=== PATIENT | male | born 1945 | race Caucasian/White ===

== ENCOUNTER 2020-09-17 12:14 | Inpatient (IN) ==
[2020-09-17 13:43] LABS: Basophils # (auto) 0.05 K/uL (0-0.2); Basophils % (auto) 0.5 %; Eosinophils # (auto) 0.13 K/uL (0-0.5); Eosinophils % (auto) 1.2 %; Hematocrit (blood only) 38.3 % (42-52); Hemoglobin 13.1 g/dL (14.0-18.0); Immature Granulocytes # (auto) 0.05 K/uL (0.00-0.02); Immature Granulocytes % (auto) 0.5 %; Lymphocytes # (auto) 2.46 K/uL (1.2-3.4); Lymphocytes % (auto) 22.7 %; Mean Corpuscular Hemoglobin 30.4 pg (25-34); Mean Corpuscular Hgb Conc 34.2 g/dL (32-36); Mean Corpuscular Volume 88.9 fL (80-100); Monocytes # (auto) 0.63 K/uL (0.11-0.59); Monocytes % (auto) 5.8 %; Neutrophils # (auto) 7.53 K/uL (1.4-6.5); Neutrophils % (auto) 69.3 %; Platelet Count 141 K/uL (130-400); RDW Coefficient of Variation 16.1 % (11.5-14.5); RDW Standard Deviation 52.3 fL (36.4-46.3); Red Blood Count 4.31 M/uL (4.7-6.1); White Blood Count 10.85 K/uL (4.8-10.8)
--- NOTE | 2020-09-17 13:56 | XRay Report ---
XR chest 1V portable HISTORY: Atypical Chest Pain COMPARISON: None. FINDINGS: No pneumothorax. The cardiac silhouette is moderately enlarged. There is mild pulmonary vas cular congestion without overt edema. Bibasilar linear densities favor subsegmental atelectasis. No d efinite pleural effusions. No focal lung consolidations to suggest pneumonia. Degenerative changes in the bilateral shoulders. IMPRESSION: Moderate cardiomegaly. There is also mild central pulmonary vascular congestion without overt edema. ACT 112: Negative or not required by law. Electronically signed by: Calvin Matthews M.D. 09/17/2020 1:55 PM
[2020-09-17 14:06] LABS: Albumin Level 3.6 gm/dl (3.4-5.0); BUN Creatinine Ratio 27.6 (10-20); Bilirubin,Total 1.6 mg/dl (0.2-1); Calcium 9.4 mg/dl (8.5-10.1); Creatinine Clr Calc Pharmacy 66.2 ml/min; Est GFR (African American) 52.1 ml/min; Est GFR (Non-African American) 44.9 ml/min; Globulin 3.7 gm/dl (2.5-4.0); Total Protein 7.3 gm/dl (6.4-8.2); Troponin I 0.06 ng/ml (0-0.045)
[2020-09-17] MEDS ORDERED: ASPIRIN CHEW 324 MG PO STA (14:19)
[2020-09-17 14:32] LABS: INR 1.1 (0.9-1.1); Partial Thromboplastin Ratio 1.2; Partial Thromboplastin Time 30.5 Seconds (21.0-31.0); Prothrombin Time 11.4 Seconds (9.0-12.0)
[2020-09-17 14:44] LABS: Potassium 3.9 mmol/L (3.5-5.1)
--- NOTE | 2020-09-17 15:33 | Electrocardiogram Report ---
Test Reason : Blood Pressure : / mmHG Vent. Rate : 068 BPM Atrial Rate : 267 BPM P-R Int : 000 ms QRS Dur : 172 ms QT Int : 490 ms P-R-T Axes : 000 -68 084 degrees QTc Int : 521 ms Atrial fibrillation Left axis deviation Left bundle branch block Abnormal ECG No previous ECGs available Confirmed by Dennis Richardson [id number] on 09/17/2020 3:32:31 PM Referred By: [facility] Confirmed By:Lupillo Richardson
[2020-09-17] MEDS ORDERED: cefTRIAXone SODIUM 2,000 MG/70 ML BAG IV STA (16:21)
[2020-09-17] MEDS ORDERED: CONSULT PHARMACY STA (16:27)
[2020-09-17] MEDS ORDERED: Heparin IV Adult Wt-Based Standard *NO* Bolus Protocol IV SCH (16:30)
[2020-09-17] MEDS ORDERED: FUROSEMIDE 40 MG/4 ML VIAL IV STA (16:41)
[2020-09-17] MEDS ORDERED: cefTRIAXone SODIUM 2000MG/70ML D5W IV ONE (16:43)
--- NOTE | 2020-09-17 16:51 | History & Physical Report ---
Date of Service September 17, 2020 Assessment & Plan (1) Atrial fibrillation, new onset: (2) Elevated troponin: (3) Left-sided chest pain: (4) CAD (coronary artery disease): (5) Acute on chronic heart failure with preserved ejection fraction (HFpEF): (6) LBBB (left bundle branch block): (7) JS (acute kidney injury): (8) ELHAM on CPAP: (9) Bilateral lower leg cellulitis: Plan: This is a 75-year-old male who has significant past medical history of CAD, chronic LBBB, history of HFrEF but EF now recovered, HTN, HLD, ELHAM on CPAP, morbid obesity, pulmonary hypertension, bipolar, GERD, RLS, POAG who presents to ED secondary to chest pain times approximately 1 hour. Patient recently hospitalized at [facility] 09/07-09/12 secondary to decompensation of CHF. Treated with Lasix 60 mg IV twice daily and transition to oral torsemide, started on metolazone and Aldactone. Per cardiology notes from [facility] prior history of HFrEF, but EF now recovered. Echo on 07/2020 revealed EF 55 to 60%, severe LVH, LA severely dilated, RV SF globally reduced. Per patient he has had 4 hospitalizations in the past month secondary to heart failure, JS, pneumonia and a readmission for heart failure and bilateral lower extremity cellulitis. He has since been discharged to [facility] secondary to deconditioning and ambulatory dysfunction. Patient had episode of chest pain with associated lightheadedness, dizziness, shortness breath and diaphoresis and EKG found patient to be in new onset rate controlled atrial fibrillation. He was referred to ED for further evaluation New onset atrial fibrillation Elevated troponin Left-sided chest pain Known CAD Chronic LBBB Admit to PCU, chest pain now resolved Initiate IV heparin, [id number] (Age, CHF, HTN, PVD) - discussed risk vs benefit, no hx of major bleeding in past Continue oral metoprolol, currently rate controlled Consult cardiology check tsh cycle troponins, was elevated to 0.08 at [facility] on admission continue home meds of metoprolol, lisinopril ASA, atorvastatin, Aldactone Acute on Chronic HFpEF likely 2/2 to afib and continued diuresis from recent exac elevated pro bnp, unknown baseline per records from recent admission wt on admission 172kg and a d/c 161kg hold torsemide, place on lasix 40mg IV BID daily weight, strict I and O Continue aldactone, hold metolazone 2/2 to elevated in renal fxn from d/c Hyponatremia, chronic at d/c on 09/12 was 130 likely dilutional 2/2 to volume overload vs diuretic effect monitor na levels closely metolazone on hold JS renal fxn at d/c was cr 1.0, normal GFR bun/cr 41 and 1.49 today continue with IV lasix but adjust based on renal fxn hold metolazone for now Bilateral lower extremity cellulitis Was seen and evaluated by infectious disease during recent hospitalization treated with IV Rocephin transitioned to oral keflex at d/c to be completed at end of day on 09/19 - will continue oral keflex given volume status hesitant to give IV antibiotics; however if redness does not improve or worsens would place on IV dapto will have nursing staff alfred line of erythema obtain procalcitonin B/L lower ext edema and discoloration concern for PVD/PAD, prolonged cap refill but good pedal and pt pulse obtain b/l venous doppler and Arterial doppler Intertrigo place on nystatin/triamcinolone consult wound nurse ELHAM on CPAP CPAP at HS COPD no acute exac, continue home inhalers umeclidinium and combivent DVT Ppx: IV Heparin Dispo: PCU PCP: [facility] in [place]/Currently at [facility] FULL CODE Pt was seen and examined in collaboration with Dr. Krause, please see addendum History of Present Illness Chief Complaint: Chest pain x1 hour. Primary Care Provider: [facility] This is a 75-year-old male who has significant past medical history of CAD, chronic LBBB, history of HFrEF but EF now recovered, HTN, HLD, ELHAM on CPAP, morbid obesity, pulmonary hypertension, bipolar, GERD, RLS, POAG who presents to ED secondary to chest pain times approximately 1 hour. Of significance patient is currently in acute rehab at [facility]. He has been there since 09/12. Records are limited and he has had multiple recent hospitalizations at [facility]. Patient admits to 4 recent hospitalization starting approximately 1 month ago. Initially he was admitted for acute CHF, which he admits a new diagnosis. He was then discharged and readmitted with syncope and JS felt likely secondary to aggressive diuresis. Unfortunately he was read mitted with pneumonia and cellulitis and treated appropriately. He was last admitted 09/07-09/12 at [facility] secondary to acute on chronic CHF. Most recent echocardiogram revealed EF 55 to 60%, severely dilated left atrium, severe LVH, and RV SF globally reduced. He was treated with IV Lasix 60 mg twice daily and discharged on torsemide 20 mg twice daily along with metolazone and Aldactone. Of note he does have a recent history of reduced ejection fraction but his EF has now recovered. He was also discovered to have a bilateral lower extremity cellulitis and treated with IV Rocephin. He was discharged with oral Keflex and is to can be completed for a 7-day course. He was then discharged to [facility] for rehab secondary to general deconditioning and ambulatory dysfunction. He states prior to hospitalizations he was able to walk on own and now has difficulty getting out of bed. He has been at [facility] since 09/12 and was working with therapy today when he developed a blank stare instead, "I am having a heart attack." He described it as, "doing heroin," although he states he is never done this before. He developed left-sided chest pain which was nonradiating and lasted for 3 to 4 minutes. It was associated with diaphoresis, dizziness, lightheadedness and shortness of breath. This lasted for approximately 1 hour. Symptoms gradually resolved. [facility] nursing staff obtained an EKG which revealed a new onset rate controlled atrial fibrillation. He was then referred to ED for further evaluation. Currently he feels improved but debilitated. He currently denies any fever, chills, sweats, lightheadedness, dizziness, chest pain, shortness breath, cough, URI symptoms, nausea, vomiting, abdominal pain. His appetite has been okay and is requesting a meal now. He feels his lower extremities are improving as far as redness and swelling goes. He admits to being 360 pounds when he was initially admitted and now into the 330s. In ED patient made hemodynamically stable, but EKG confirming atrial fibrillation. Lab work notable for BUN 41, creatinine 1.49, troponin 0.060, proBNP 2585, H&H 13.1 and 38.3, to WBC 10.85 Chest x-ray revealed moderate cardiomegaly and also mild central pulmonary vascular congestion without overt edema. He received 325 mg of aspirin. Allergies Allergy/AdvReac Type Severity Reaction Status Date / Time benzalkonium chloride Allergy Unknown Unverified 09/17/20 15:55 brimonidine Allergy Unknown Unverified 09/17/20 15:55 inositol Allergy Unknown Unverified 09/17/20 15:55 niacin Allergy Unknown Unverified 09/17/20 15:55 pollen extracts Allergy Unknown Unverified 09/17/20 15:55 timolol Allergy Unknown Unverified 09/17/20 15:55 travoprost Allergy Unknown Unverified 09/17/20 15:55 Home Medications Medication Instructions Recorded Confirmed Type allopurinol 100 mg tablet 200 mg PO DAILY 09/17/20 09/17/20 History amitriptyline 10 mg tablet 10 mg PO HS 09/17/20 09/17/20 History ascorbic acid (vitamin C) 250 mg 500 mg PO DAILY 09/17/20 09/17/20 History tablet atorvastatin 10 mg tablet (Lipitor) 10 mg PO HS 09/17/20 09/17/20 History calcitriol 0.25 mcg capsule 0.25 mcg PO DAILY 09/17/20 09/17/20 History (Rocaltrol) calcium carbonate 500 mg calcium 500 mg PO DAILY 09/17/20 09/17/20 History (1,250 mg) chewable tablet cholecalciferol (vitamin D3) 25 25 mcg PO DAILY 09/17/20 09/17/20 History mcg (1,000 unit) tablet (Vitamin D3) cyanocobalamin (vitamin B-12) 1,000 mcg PO DAILY 09/17/20 09/17/20 History 1,000 mcg tablet docusate sodium 100 mg capsule 100 mg PO BID 09/17/20 09/17/20 History dorzolamide 2 % eye drops 1 drp OPB TID 09/17/20 09/17/20 History finasteride 5 mg tablet (Proscar) 5 mg PO DAILY 09/17/20 09/17/20 History gabapentin 300 mg capsule 1,500 mg PO HS 09/17/20 09/17/20 History (Neurontin) ipratropium 20 mcg-albuterol 100 1 puff INHALATION Q4H PRN 09/17/20 09/17/20 History mcg/actuation mist for inhalation ipratropium 20 mcg-albuterol 100 1 puff INHALATION QID 09/17/20 09/17/20 History mcg/actuation mist for inhalation (Combivent Respimat) lactulose 10 gram/15 mL oral 20 g PO DAILY 09/17/20 09/17/20 History solution (Enulose) lamotrigine 150 mg tablet 150 mg PO DAILY 09/17/20 09/17/20 History (Lamictal) loratadine 10 mg tablet 10 mg PO DAILY 09/17/20 09/17/20 History metoprolol succinate 25 mg 25 mg PO HS 09/17/20 09/17/20 History tablet,extended release 24 hr (Toprol XL) multivitamin with iron-mineral 1 tab PO DAILY 09/17/20 09/17/20 History omega-3 fatty acids 1,000 mg PO DAILY 09/17/20 09/17/20 History pantoprazole 40 mg tablet,delayed 40 mg PO BID 09/17/20 09/17/20 History release (Protonix) ropinirole 0.5 mg tablet 0.5 mg PO TID 09/17/20 09/17/20 History tamsulosin 0.4 mg capsule (Flomax) 0.4 mg PO DAILY 09/17/20 09/17/20 History temazepam 15 mg capsule 15 mg PO HS PRN 09/17/20 09/17/20 History umeclidinium 62.5 mcg/actuation 1 inh INHALATION DAILY 09/17/20 09/17/20 History blister powder for inhalation zinc sulfate 220 mg capsule 220 mg PO DAILY 09/17/20 09/17/20 History Past Med/Surg History Medical History 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 BPH (benign prostatic hyperplasia) CAD (coronary artery disease) Chronic heart failure with preserved ejection fraction (HFpEF) COPD (chronic obstructive pulmonary disease) GERD (gastroesophageal reflux disease) Hyperparathyroidism LBBB (left bundle branch block) chronic ELHAM on CPAP POAG (primary open-angle glaucoma) RLS (restless legs syndrome) Surgical History History of cataract extraction History of cholecystectomy History of hip replacement History of knee joint replacement History of laminectomy History of rotator cuff surgery Family History Other Heart disease Social History Smoking Status: Never smoker Second Hand Exposure: Yes; Hx Alcohol Use: No Hx Substance Use: No Preferred Language: Citizen Of [place] Communication Ability: Effective Supervising Bailiff Required: No Beliefs That Will Affect Care: None marital status: Current Living Situation: Spouse Current Living Situation Comment: Lives with Feels Safe at Home: Yes Review of Systems Review of Systems: All systems reviewed & are unremarkable except as noted in HPI & below Physical Exam Physical Exam: Constitutional: WD/WN, morbidly obese, vitals as above, NAD, sitting up in bed, pleasant, conversing easily Head: Normocephalic, Atraumatic Eyes: +Anisocoria R>L, conjunctivae normal, anicteric sclerae ENMT: external ear and nose normal, oropharynx normal Neck: trachea midline, no thyromegaly normal visual inspection Respiratory: normal respiratory effort, lungs clear to auscultation, no wheeze, rales, rhonchi. Normal insp/exp effort, no accessory muscle use Cardiovascular: IRR rhythm, reg rate, no murmur, b/l lower ext pitting edema, b/l lower ext cellulitis, cool peripheral lower ext, cap refill > 3 sec, + 2 pedal pulse Vessels: no JVD or carotid bruit Chest: normal inspection of chest Abdomen: distended protuberant abd, normal bowel sounds, soft, nontender, no hepatosplenomegaly Musculoskeletal: no cyanosis or clubbing, AROM x 4 Skin: no rashes, warm and dry normal turgor Neurologic: PERRL, EOMI, accommodation nl, no face palsy, no dysarthria CN's II-XI intact bilaterally and moves all extremities Psychiatric: A+Ox3, euthymic affect Lymphatic: no cervical or axillary lymphadenopathy : deferred Results & Data Results & Data ([facility]) Vital Signs (Past 12 Hours) Vital Signs Temp Pulse Pulse Resp BP BP Pulse Ox 09/17/20 16:00 71 19 210/101 H 97 09/17/20 15:30 74 12 184/112 H 93 09/17/20 15:00 63 18 165/108 H 91 09/17/20 14:30 75 20 151/80 H 96 09/17/20 14:25 74 20 168/77 H 97 09/17/20 14:18 73 16 168/77 H 96 09/17/20 12:23 61 15 127/67 95 09/17/20 12:14 36.4 C L 64 16 126/67 95 Diagnostic Findings Chest X-Ray 09/17/20 13:09 XR chest 1V portable HISTORY: Atypical Chest Pain COMPARISON: None. FINDINGS: No pneumothorax. The cardiac silhouette is moderately enlarged. There is mild pulmonary vascular congestion without overt edema. Bibasilar linear densities favor subsegmental atelectasis. No definite pleural effusions. No focal lung consolidations to suggest pneumonia. Degenerative changes in the bilateral shoulders. IMPRESSION: Moderate cardiomegaly. There is also mild central pulmonary vascular congestion without overt edema. ACT 112: Negative or not required by law. Electronically signed by: Calvin Matthews M.D. 09/17/2020 1:55 PM Medications Administered Medication List Heparin Sodium/Dextrose (Heparin Sodium/Dextrose) 25,000 units in 500 mls @ 40 mls/hr IV .[id number] [facility]; Protocol Stop: 10/17/20 16:29 Last Admin: 09/17/20 16:56 Dose: 2,000 units/hr, 40 mls/hr Documented by: [id number] Cosigned by: [id number] Discontinued Medications Aspirin (Aspirin Chew 324 Mg) 324 mg PO NOW STA Stop: 09/17/20 14:20 Last Admin: 09/17/20 14:33 Dose: 324 mg Documented by: [id number] Ceftriaxone Sodium (Ceftriaxone Sodium 2000mg/70ml D5w) Confirm Administered Dose 2,000 mg IV .STK-MED ONE Stop: 09/17/20 16:44 Last Admin: 09/17/20 16:51 Dose: Not Given Documented by: [id number] Furosemide (Furosemide 40 Mg/4 Ml Vial) 40 mg IV NOW STA Stop: 09/17/20 16:42 Last Admin: 09/17/20 16:54 Dose: 40 mg Documented by: [id number] Ceftriaxone Sodium (Rocephin) 2,000 mg in 70 mls @ 140 mls/hr IV NOW STA Stop: 09/17/20 16:50 Last Admin: 09/17/20 16:49 Dose: Not Given Documented by: [id number] ECG Rate (beats per minute): 68 Rhythm: atrial fibrillation Findings: + LBBB COVID-19 Results Results COVID-19 Adm Lab Results: RBC 3.43 M/uL (4.7-6.1) L 09/22/20 WBC 36.57 K/uL (4.8-10.8) H* 09/22/20 Hgb 9.9 g/dL (14.0-18.0) L 09/22/20 Hct 28.0 % (42-52) L 09/22/20 Plt Count 239 K/uL (130-400) 09/22/20 Neutrophils (%) (Auto) 70.8 % 09/21/20 Lymphocytes (%) (Auto) 23.3 % 09/21/20 Monocytes # (Auto) 1.16 K/uL (0.11-0.59) H 09/21/20 Eosinophils # (Auto) 0.01 K/uL (0-0.5) 09/21/20 Immature Granulocyte % (Auto) 1.3 % 09/21/20 Neutrophils # (Auto) 18.46 K/uL (1.4-6.5) H 09/21/20 Lymphocytes # (Auto) 6.07 K/uL (1.2-3.4) H 09/21/20 Monocytes # (Auto) 1.16 K/uL (0.11-0.59) H 09/21/20 Eosinophils # (Auto) 0.01 K/uL (0-0.5) 09/21/20 Basophils # (Auto) 0.03 K/uL (0-0.2) 09/21/20 Immature Granulocyte # (Auto) 0.33 K/uL (0.00-0.02) H 09/21/20 ANC 24.90 K/uL (1.4-6.5) H 09/22/20 ALC 10.72 K/uL (1.2-3.4) H 09/22/20 Neutrophils % (Manual) 68.1 % 09/22/20 Lymphocytes % (Manual) 29.3 % 09/22/20 Monocytes % (Manual) 1.7 % 09/22/20 Basophils % (Manual) 0.9 % 09/22/20 Neutrophils # (Manual) 24.90 K/uL (1.4-6.5) H 09/22/20 Lymphocytes # (Manual) 10.72 K/uL (1.2-3.4) H 09/22/20 Monocytes # (Manual) 0.62 K/uL (0.11-0.59) H 09/22/20 Basophils # (Manual) 0.33 K/uL (0-0.2) H 09/22/20 Red Blood Cell Morphology Unremarkable 09/22/20 Na 125 mmol/L (136-145) L 09/22/20 K 4.3 mmol/L (3.5-5.1) 09/22/20 Cl 90 mmol/L (98-107) L 09/22/20 CO2 23 mmol/L (21-32) 09/22/20 Anion Gap 12.0 (3-11) H 09/22/20 BUN 73 mg/dl (7-18) H 09/22/20 Creatinine 2.99 mg/dl (0.6-1.4) H 09/22/20 BUN/Creatinine Ratio 24.5 (10-20) H 09/22/20 Glucose Level 191 mg/dl (70-99) H 09/22/20 Ca 8.9 mg/dl (8.5-10.1) 09/22/20 Total Bilirubin 1.2 mg/dl (0.2-1) H 09/21/20 Direct Bilirubin 0.7 mg/dl (0-0.2) H 09/17/20 AST/SGOT 128 U/L (15-37) H 09/21/20 ALT/SGPT 69 U/L (12-78) 09/21/20 Alkaline Phosphatase 84 U/L (45-117) 09/21/20 Total Protein 6.8 gm/dl (6.4-8.2) 09/21/20 Albumin 3.5 gm/dl (3.4-5.0) 09/21/20 Globulin 3.3 gm/dl (2.5-4.0) 09/21/20 Albumin/Globulin Ratio 1.1 (0.9-2) 09/21/20 Troponin I 0.063 ng/ml (0-0.045) H* 09/18/20 EH-Tja-A-Type Natriuretic Pep 2585 pg/ml (0-1800) H 09/17/20 Procalcitonin 0.76 ng/ml (0-0.5) H 09/21/20 Fibrinogen 565 mg/dl (184-400) H 09/21/20 PTT 26.6 Seconds (21.0-31.0) 09/22/20 INR 1.1 (0.9-1.1) 09/22/20 COVID-19 PCR NEGATIVE (Negative) 09/17/20 ABG pH 7.49 (7.35-7.45) H 09/21/20 ABG pCO2 28 mmHg (35-46) L 09/21/20 ABG pO2 86 mmHg (80-95) 09/21/20 ABG HCO3 21 mmol/L (19-24) 09/21/20 ABG O2 Saturation 97.3 % (90-95) H 09/21/20 ABG Base Excess -1.3 mEq/L (-9-1.8) 09/21/20 Chest X-Ray 09/21/20 Code Status & VTE Plan Code Status Full Code VTE Prophylaxis Plan VTE Prophylaxis will be ordered: No Supervising Physician Co-Signing Physician Notes Patient seen and examined by me, care coordinated with Paris London PA-C, please refer to her note above for further detail. Pt is a 75 y/o male w/ hx of CAD, chronic LBBB, history of HFrEF but EF now recovered, HTN, HLD, ELHAM on CPAP, morbid obesity, pulmonary hypertension, bipolar, GERD, RLS, POAG who presents due to chest pain ~ 1 hour. Found to have new onset of Afib and acute CHF exacerbation likely secondary to Afib. Pt has had multiple recent hospitalizations at [facility]. Initially he was admitted for acute CHF, which is supposedly a new diagnosis. He was readmitted with pneumonia and cellulitis. He has been at [facility] since 09/12, where he developed left-sided chest pain. It was associated with diaphoresis, dizziness, lightheadedness and shortness of breath. [facility] nursing staff obtained an EKG which revealed a new onset rate controlled atrial fibrillation. He was then referred to ED for further evaluation. In ED, EKG confirmed atrial fibrillation. troponin 0.060, proBNP 2585. Chest x- ray revealed moderate cardiomegaly and also mild central pulmonary vascular congestion without overt edema. He received 325 mg of aspirin. Currently he feels improved. Denies any fever, chills, sweats, lightheadedness, dizziness, chest pain, shortness breath, cough, URI symptoms, nausea, vomiting, abdominal pain. Patient is sitting up in bed, in no acute distress. He is alert oriented answering questions appropriately. Heart sounds irregular. Lung sounds somewhat diminished, and without significant wheezing or rhonchi or crackles. Abdomen soft, obese, positive bowel sounds, nontender to palpation. Lower extremity edema with some erythema noted. Patient moves extremities spontaneously without difficulty. Start IV heparin, continue metoprolol, will obtain echocardiogram, TSH and will further discuss with cardiology. Will start IV Lasix as well, and will hold jessica e torsemide for now. Continue to closely monitor renal function. Obtain bilateral venous Doppler and arterial Doppler. Pt started on PO antibiotics for cellulitis, continue for now, closely monitor, marked the area, obtain procalcitonin and if not improving, will consider IV antibiotics. Eb Krause MD
[2020-09-17] MEDS: HEPARIN SODIUM/DEXTROSE 25,000 UNITS/500 ML BAG IV SCH (16:56)
--- NOTE | 2020-09-17 16:59 | Emergency Department Note ---
Impression & Plan Left-sided chest pain, Elevated troponin, Atrial fibrillation, new onset ED Provider Note INFORMANT: Patient ED PROVIDER(S): Sanchez Hooks MD CHIEF COMPLAINT: Chest pain PLAN: Disposition: Admitted Condition: Good Outpatient prescription management: none Referral: None MEDICAL DECISION MAKING: Patient presented to the emergency department because of chest pain. It had resolved. He was evaluated. ECG did show atrial fibrillation. The patient does not have a known history of this by his account. No prior records were available here. The patient was given aspirin. His chest x-ray showed cardiomegaly but no significant acute abnormalities. CBC showed a slight leukocytosis of 10.85. His chemistry panel was unremarkable. His creatinine was borderline at 1.49. He did have an elevated troponin. In light of his chest symptoms and the troponin further management in the hospital will be necessary. [facility] Patient was evaluated by the team in the emergency department admitted for further management. Triage Nursing notes reviewed and agree them. Vital Signs: reviewed and remarkable for no significant abnormalities Differential diagnosis: Cardiac ischemia, dysrhythmia, aortic dissection, pulmonary embolism, pneumothorax, pneumonia, pericarditis, myocarditis, esophageal rupture, GERD, cholecystitis, pancreatitis, musculoskeletal, as well as other pathologies. Diagnostics interpreted by me: ECG: Twelve-lead ECG reveals atrial fibrillation at 60 bpm. Left axis deviation and left bundle branch block. No prior EKGs for comparison. Cardiac Monitoring: Cardiac monitoring ordered by me: The patient was placed on continuous cardiac monitoring and observed. It revealed a atrial fibrillation at 77 bpm. Imaging studies: Chest x-ray reveals cardiomegaly. No acute infiltrate, pneumothorax, free air, or other pathology. I refer you to the EMR for further details. HPI: The patient is a 75 year old male who presents to the Emergency Room with complaints of left sided chest pain. This started this morning and is noting to have lasted about an hour. The patient had an ECG performed at the rehab facility and was found to be in new onset A. fib. The patient also notes the following associated symptoms, mild shortness of breath but that has been going on for weeks. He was in the [facility] for CHF and was diuresed. The patient has been given no medication prehospital for relieving factors. Current pain is rated as 0/10. Patient denies any known history of stents or blockages pt denies LOC, headache, fevers, chills, diaphoresis, visual changes, neck pain, current breathing difficulties, nausea, vomiting, abdominal pain, back pain, melena, hematochezia, urinary symptoms, numbness, weakness, lymphadenopathy, rash, or other complaints. ROS: See above HPI for pertinent positives & negatives. A total of 10 systems reviewed and were otherwise negative. PAST MEDICAL HISTORY:See Below , CHF PAST SURGICAL HISTORY:See Below, FAMILY HISTORY:See Below SOCIAL HISTORY:See Below, retired HOME MEDICATIONS:See Below ALLERGIES:See Below VITALS:See Below PHYSICAL EXAMINATION: GENERAL: Awake, alert, [id number], in no distress HENT: Normocephalic, atraumatic. Oropharynx unremarkable. EYES: Normal conjunctiva. Sclera non-icteric. NECK: Inspection normal. Non-tender. Supple. No nuchal rigidity. FROM. No masses. RESPIRATORY: Clear to auscultation. No wheezes. No rales. Normal respiratory effort. CARDIAC: Normal rate. Normal rhythm. No murmurs. No rubs. Extremities warm and well perfused. Pulses equal. No JVD. GI: Soft, non-distended. No tenderness to palpation. No rebound or guarding. No masses. RECTAL: Deferred. MUSCULOSKELETAL: Atraumatic. Chest examination reveals no tenderness. The back is symmetrical on inspection without obvious abnormality. There is no CVA tenderness to palpation. No joint edema. LOWER EXTREMITIES: Calves are equal size bilaterally and non-tender. 2+ on the left and 1+ on the right pedal edema. Chronic venous discoloration. NEURO: Normal sensorium. No sensory or motor deficits noted. SKIN: No rash or jaundice noted. Sanchez Hooks MD Past Med/Surg History Social History Smoking Status: Never smoker Feels Safe at Home: Yes Allergies Allergies Allergy/AdvReac Type Severity Reaction Status Date / Time benzalkonium chloride Allergy Unknown Unverified 09/17/20 15:55 brimonidine Allergy Unknown Unverified 09/17/20 15:55 inositol Allergy Unknown Unverified 09/17/20 15:55 niacin Allergy Unknown Unverified 09/17/20 15:55 pollen extracts Allergy Unknown Unverified 09/17/20 15:55 timolol Allergy Unknown Unverified 09/17/20 15:55 travoprost Allergy Unknown Unverified 09/17/20 15:55 Home Meds Home Medications Medication Instructions Recorded Confirmed allopurinol 100 mg tablet 200 mg PO DAILY 09/17/20 09/17/20 amitriptyline 10 mg tablet 10 mg PO HS 09/17/20 09/17/20 ascorbic acid (vitamin C) 250 mg 500 mg PO DAILY 09/17/20 09/17/20 tablet aspirin 81 mg tablet,delayed 81 mg PO DAILY 09/17/20 09/17/20 release (Aspirin Low Dose) atorvastatin 10 mg tablet (Lipitor) 10 mg PO HS 09/17/20 09/17/20 calcitriol 0.25 mcg capsule 0.25 mcg PO DAILY 09/17/20 09/17/20 (Rocaltrol) calcium carbonate 500 mg calcium 500 mg PO DAILY 09/17/20 09/17/20 (1,250 mg) chewable tablet celecoxib 100 mg capsule (Celebrex) 200 mg PO BID 09/17/20 09/17/20 cephalexin 500 mg capsule 500 mg PO QID 09/17/20 09/17/20 cholecalciferol (vitamin D3) 25 25 mcg PO DAILY 09/17/20 09/17/20 mcg (1,000 unit) tablet (Vitamin D3) cyanocobalamin (vitamin B-12) 1,000 mcg PO DAILY 09/17/20 09/17/20 1,000 mcg tablet docusate sodium 100 mg capsule 100 mg PO BID 09/17/20 09/17/20 dorzolamide 2 % eye drops 1 drp OPB TID 09/17/20 09/17/20 enoxaparin 40 mg/0.4 mL 40 mg SUBCUT DAILY 09/17/20 09/17/20 subcutaneous syringe (Lovenox) finasteride 5 mg tablet (Proscar) 5 mg PO DAILY 09/17/20 09/17/20 gabapentin 300 mg capsule 1,500 mg PO HS 09/17/20 09/17/20 (Neurontin) ipratropium 20 mcg-albuterol 100 1 puff INHALATION Q4H PRN 09/17/20 09/17/20 mcg/actuation mist for inhalation ipratropium 20 mcg-albuterol 100 1 puff INHALATION QID 09/17/20 09/17/20 mcg/actuation mist for inhalation (Combivent Respimat) lactulose 10 gram/15 mL oral 20 g PO DAILY 09/17/20 09/17/20 solution (Enulose) lamotrigine 150 mg tablet 150 mg PO DAILY 09/17/20 09/17/20 (Lamictal) lisinopril 5 mg tablet (Zestril) 5 mg PO DAILY 09/17/20 09/17/20 loratadine 10 mg tablet 10 mg PO DAILY 09/17/20 09/17/20 metolazone 5 mg tablet 5 mg PO DAILY 09/17/20 09/17/20 metoprolol succinate 25 mg 25 mg PO HS 09/17/20 09/17/20 tablet,extended release 24 hr (Toprol XL) multivitamin with iron-mineral 1 tab PO DAILY 09/17/20 09/17/20 omega-3 fatty acids 1,000 mg PO DAILY 09/17/20 09/17/20 pantoprazole 40 mg tablet,delayed 40 mg PO BID 09/17/20 09/17/20 release (Protonix) ropinirole 0.5 mg tablet 0.5 mg PO TID 09/17/20 09/17/20 spironolactone 50 mg tablet 50 mg PO BID 09/17/20 09/17/20 (Aldactone) tamsulosin 0.4 mg capsule (Flomax) 0.4 mg PO DAILY 09/17/20 09/17/20 temazepam 15 mg capsule 15 mg PO HS PRN 09/17/20 09/17/20 torsemide 20 mg tablet 20 mg PO BID 09/17/20 09/17/20 umeclidinium 62.5 mcg/actuation 1 inh INHALATION DAILY 09/17/20 09/17/20 blister powder for inhalation zinc sulfate 220 mg capsule 220 mg PO DAILY 09/17/20 09/17/20 Results & Data (ED) Vital Signs Vital Signs - 24 hr 09/17/20 12:14 09/17/20 12:23 09/17/20 14:18 Temperature 36.4 C L Temperature Source Oral Pulse Rate 64 61 73 Pulse Rate [Right Finger] Pulse Rate from SpO2 Sensor 63 69 Pulse Rhythm Irregular Respiratory Rate 16 15 16 Respiratory Effort / Characteristics Non-Labored Respiratory Depth Normal Blood Pressure 126/67 127/67 168/77 H Blood Pressure [Right Arm] Blood Pressure Mean 86 87 107 Blood Pressure Mean [Right Arm] Pulse Oximetry 95 95 96 Oxygen Delivery Method Room Air Sepsis Recent Fever Within 48 Hours No Sepsis New/Unexplained Change in Mental Status N/A Sepsis Action Taken by Nursing No Action Required 09/17/20 14:25 09/17/20 14:30 09/17/20 15:00 Temperature Temperature Source Pulse Rate 75 63 Pulse Rate [Right Finger] 74 Pulse Rate from SpO2 Sensor 69 54 L Pulse Rhythm Respiratory Rate 20 20 18 Respiratory Effort / Characteristics Respiratory Depth Blood Pressure 151/80 H 165/108 H Blood Pressure [Right Arm] 168/77 H Blood Pressure Mean 103 127 Blood Pressure Mean [Right Arm] 107 Pulse Oximetry 97 96 91 Oxygen Delivery Method Room Air Sepsis Recent Fever Within 48 Hours Sepsis New/Unexplained Change in Mental Status Sepsis Action Taken by Nursing 09/17/20 15:30 09/17/20 16:00 09/17/20 16:30 Temperature Temperature Source Pulse Rate 74 71 77 Pulse Rate [Right Finger] Pulse Rate from SpO2 Sensor 74 73 79 Pulse Rhythm Respiratory Rate 12 19 17 Respiratory Effort / Characteristics Respiratory Depth Blood Pressure 184/112 H 210/101 H 108/86 Blood Pressure [Right Arm] Blood Pressure Mean 136 137 93 Blood Pressure Mean [Right Arm] Pulse Oximetry 93 97 97 Oxygen Delivery Method Sepsis Recent Fever Within 48 Hours Sepsis New/Unexplained Change in Mental Status Sepsis Action Taken by Nursing Laboratory Data Result diagrams: 09/17/20 13:30 09/17/20 14:07 Lab Results 09/17/20 09/17/20 09/17/20 Range/Units 13:30 13:30 13:30 WBC 10.85 H (4.8-10.8) K/uL RBC 4.31 L (4.7-6.1) M/uL Hgb 13.1 L (14.0-18.0) g/dL Hct 38.3 L (42-52) % MCV 88.9 (80-100) fL MCH 30.4 (25-34) pg MCHC 34.2 (32-36) g/dL RDW Std Deviation 52.3 H (36.4-46.3) fL RDW Coeff of Rohit 16.1 H (11.5-14.5) % Plt Count 141 (130-400) K/uL MPV 10.0 (7.4-10.4) fL Immature Gran % (Auto) 0.5 % Neut % (Auto) 69.3 % Lymph % (Auto) 22.7 % [place] % (Auto) 5.8 % Eos % (Auto) 1.2 % Baso % (Auto) 0.5 % Neut # (Auto) 7.53 H (1.4-6.5) K/uL Lymph # (Auto) 2.46 (1.2-3.4) K/uL [place] # (Auto) 0.63 H (0.11-0.59) K/uL Eos # (Auto) 0.13 (0-0.5) K/uL Baso # (Auto) 0.05 (0-0.2) K/uL Immature Gran # (Auto) 0.05 H (0.00-0.02) K/uL PT Cancelled INR Cancelled APTT Cancelled PTT Ratio Cancelled Sodium 129 L (136-145) mmol/L Potassium (3.5-5.1) mmol/L Chloride 92 L (98-107) mmol/L Carbon Dioxide 29 (21-32) mmol/L Anion Gap 9.0 (3-11) BUN 41 H (7-18) mg/dl Creatinine 1.49 H (0.6-1.4) mg/dl Est Cr Clr Drug Dosing 66.2 ml/min Est GFR ( Amer) 52.1 ml/min Est GFR (Non-Af Amer) 44.9 ml/min BUN/Creatinine Ratio 27.6 H (10-20) Glucose 105 H (70-99) mg/dl Calcium 9.4 (8.5-10.1) mg/dl Total Bilirubin 1.6 H (0.2-1) mg/dl AST (15-37) U/L ALT 61 (12-78) U/L Alkaline Phosphatase 92 (45-117) U/L Troponin I 0.060 H* (0-0.045) ng/ml NT-Pro-B Natriuret Pep (0-1800) pg/ml Total Protein 7.3 (6.4-8.2) gm/dl Albumin 3.6 (3.4-5.0) gm/dl Globulin 3.7 (2.5-4.0) gm/dl Albumin/Globulin Ratio 1.0 (0.9-2) COVID-19 Eval Order SARS-CoV-2 (PCR) (Negative) 09/17/20 09/17/20 09/17/20 Range/Units 14:04 14:07 14:07 WBC (4.8-10.8) K/uL RBC (4.7-6.1) M/uL Hgb (14.0-18.0) g/dL Hct (42-52) % MCV (80-100) fL MCH (25-34) pg MCHC (32-36) g/dL RDW Std Deviation (36.4-46.3) fL RDW Coeff of Rohit (11.5-14.5) % Plt Count (130-400) K/uL MPV (7.4-10.4) fL Immature Gran % (Auto) % Neut % (Auto) % Lymph % (Auto) % [place] % (Auto) % Eos % (Auto) % Baso % (Auto) % Neut # (Auto) (1.4-6.5) K/uL Lymph # (Auto) (1.2-3.4) K/uL [place] # (Auto) (0.11-0.59) K/uL Eos # (Auto) (0-0.5) K/uL Baso # (Auto) (0-0.2) K/uL Immature Gran # (Auto) (0.00-0.02) K/uL PT 11.4 INR 1.1 APTT 30.5 PTT Ratio 1.2 Sodium (136-145) mmol/L Potassium 3.9 (3.5-5.1) mmol/L Chloride (98-107) mmol/L Carbon Dioxide (21-32) mmol/L Anion Gap (3-11) BUN (7-18) mg/dl Creatinine (0.6-1.4) mg/dl Est Cr Clr Drug Dosing ml/min Est GFR ( Amer) ml/min Est GFR (Non-Af Amer) ml/min BUN/Creatinine Ratio (10-20) Glucose (70-99) mg/dl Calcium (8.5-10.1) mg/dl Total Bilirubin (0.2-1) mg/dl AST 42 H (15-37) U/L ALT (12-78) U/L Alkaline Phosphatase (45-117) U/L Troponin I (0-0.045) ng/ml NT-Pro-B Natriuret Pep 2585 H Cancelled (0-1800) pg/ml Total Protein (6.4-8.2) gm/dl Albumin (3.4-5.0) gm/dl Globulin (2.5-4.0) gm/dl Albumin/Globulin Ratio (0.9-2) COVID-19 Eval Order SARS-CoV-2 (PCR) (Negative) 09/17/20 09/17/20 Range/Units 14:30 14:30 WBC (4.8-10.8) K/uL RBC (4.7-6.1) M/uL Hgb (14.0-18.0) g/dL Hct (42-52) % MCV (80-100) fL MCH (25-34) pg MCHC (32-36) g/dL RDW Std Deviation (36.4-46.3) fL RDW Coeff of Rohit (11.5-14.5) % Plt Count (130-400) K/uL MPV (7.4-10.4) fL Immature Gran % (Auto) % Neut % (Auto) % Lymph % (Auto) % [place] % (Auto) % Eos % (Auto) % Baso % (Auto) % Neut # (Auto) (1.4-6.5) K/uL Lymph # (Auto) (1.2-3.4) K/uL [place] # (Auto) (0.11-0.59) K/uL Eos # (Auto) (0-0.5) K/uL Baso # (Auto) (0-0.2) K/uL Immature Gran # (Auto) (0.00-0.02) K/uL PT INR APTT PTT Ratio Sodium (136-145) mmol/L Potassium (3.5-5.1) mmol/L Chloride (98-107) mmol/L Carbon Dioxide (21-32) mmol/L Anion Gap (3-11) BUN (7-18) mg/dl Creatinine (0.6-1.4) mg/dl Est Cr Clr Drug Dosing ml/min Est GFR ( Amer) ml/min Est GFR (Non-Af Amer) ml/min BUN/Creatinine Ratio (10-20) Glucose (70-99) mg/dl Calcium (8.5-10.1) mg/dl Total Bilirubin (0.2-1) mg/dl AST (15-37) U/L ALT (12-78) U/L Alkaline Phosphatase (45-117) U/L Troponin I (0-0.045) ng/ml NT-Pro-B Natriuret Pep (0-1800) pg/ml Total Protein (6.4-8.2) gm/dl Albumin (3.4-5.0) gm/dl Globulin (2.5-4.0) gm/dl Albumin/Globulin Ratio (0.9-2) COVID-19 Eval Order Covid19 at [facility] SARS-CoV-2 (PCR) NEGATIVE (Negative) Administered Medications Heparin Sodium/Dextrose (Heparin Sodium/Dextrose) 25,000 units in 500 mls @ 40 mls/hr IV .[id number] [facility]; Protocol Stop: 10/17/20 16:29 Last Admin: 09/17/20 16:56 Dose: 2,000 units/hr, 40 mls/hr Documented by: [id number] Cosigned by: [id number] Discontinued Medications Aspirin (Aspirin Chew 324 Mg) 324 mg PO NOW STA Stop: 09/17/20 14:20 Last Admin: 09/17/20 14:33 Dose: 324 mg Documented by: [id number] Ceftriaxone Sodium (Ceftriaxone Sodium 2000mg/70ml D5w) Confirm Administered Dose 2,000 mg IV .STK-MED ONE Stop: 09/17/20 16:44 Last Admin: 09/17/20 16:51 Dose: Not Given Documented by: [id number] Furosemide (Furosemide 40 Mg/4 Ml Vial) 40 mg IV NOW STA Stop: 09/17/20 16:42 Last Admin: 09/17/20 16:54 Dose: 40 mg Documented by: [id number] Ceftriaxone Sodium (Rocephin) 2,000 mg in 70 mls @ 140 mls/hr IV NOW STA Stop: 09/17/20 16:50 Last Admin: 09/17/20 16:49 Dose: Not Given Documented by: [id number] Imaging Data Radiologist's Impression: Chest X-Ray 09/17/20 13:09 XR chest 1V portable HISTORY: Atypical Chest Pain COMPARISON: None. FINDINGS: No pneumothorax. The cardiac silhouette is moderately enlarged. There is mild pulmonary vascular congestion without overt edema. Bibasilar linear densities favor subsegmental atelectasis. No definite pleural effusions. No focal lung consolidations to suggest pneumonia. Degenerative changes in the bilateral shoulders. IMPRESSION: Moderate cardiomegaly. There is also mild central pulmonary vascular congestion without overt edema. ACT 112: Negative or not required by law. Electronically signed by: Calvin Matthews M.D. 09/17/2020 1:55 PM Discharge Plan Visit Data Chief Complaint: Chest Pain Stated Complaint: chest pain ED Provider: Sanchez Hooks Discharge Problem: Left-sided chest pain, Elevated troponin, Atrial fibrillation, new onset Forms Stand Alone Forms: [facility] [place] [facility] Prescriptions Prescriptions: No Action lamotrigine [Lamictal] 150 mg tablet 150 mg PO DAILY RF: 0 torsemide 20 mg tablet 20 mg PO BID RF: 0 atorvastatin [Lipitor] 10 mg Tablet 10 mg PO HS RF: 0 metolazone 5 mg tablet 5 mg PO DAILY RF: 0 cyanocobalamin (vitamin B-12) 1,000 mcg Tablet 1,000 mcg PO DAILY RF: 0 allopurinol 100 mg tablet 200 mg PO DAILY RF: 0 aspirin [Aspirin Low Dose] 81 mg Tablet,Delayed Release (Dr/Ec) 81 mg PO DAILY RF: 0 temazepam 15 mg Capsule 15 mg PO HS PRN (Reason: Insomnia) RF: 0 tamsulosin [Flomax] 0.4 mg capsule 0.4 mg PO DAILY RF: 0 amitriptyline 10 mg tablet 10 mg PO HS RF: 0 ascorbic acid (vitamin C) 250 mg Tablet 500 mg PO DAILY RF: 0 cephalexin 500 mg capsule 500 mg PO QID RF: 0 pantoprazole [Protonix] 40 mg Tablet,Delayed Release (Dr/Ec) 40 mg PO BID RF: 0 ropinirole 0.5 mg tablet 0.5 mg PO TID RF: 0 docusate sodium 100 mg Capsule 100 mg PO BID RF: 0 gabapentin [Neurontin] 300 mg capsule 1,500 mg PO HS RF: 0 calcium carbonate 500 mg calcium (1,250 mg) Tablet,Chewable 500 mg PO DAILY RF: 0 lisinopril [Zestril] 5 mg tablet 5 mg PO DAILY RF: 0 metoprolol succinate [Toprol XL] 25 mg tablet extended release 24 hr 25 mg PO HS RF: 0 zinc sulfate 220 mg Capsule 220 mg PO DAILY RF: 0 celecoxib [Celebrex] 100 mg Capsule 200 mg PO BID RF: 0 calcitriol [Rocaltrol] 0.25 mcg capsule 0.25 mcg PO DAILY RF: 0 finasteride [Proscar] 5 mg tablet 5 mg PO DAILY RF: 0 loratadine 10 mg Tablet 10 mg PO DAILY RF: 0 spironolactone [Aldactone] 50 mg tablet 50 mg PO BID RF: 0 dorzolamide 2 % drops 1 drp OPB TID RF: 0 Multivitamin-Minerals Tablet 1 tab PO DAILY RF: 0 enoxaparin [Lovenox] 40 mg/0.4 mL Syringe 40 mg SUBCUT DAILY RF: 0 [place]-3 Capsule 1,000 mg PO DAILY RF: 0 lactulose [Enulose] 10 gram/15 mL solution 20 g PO DAILY RF: 0 cholecalciferol (vitamin D3) [Vitamin D3] 25 mcg (1,000 unit) Tablet 25 mcg PO DAILY RF: 0 umeclidinium 62.5 mcg/actuation Blister With Device 1 inh INHALATION DAILY RF: 0 Combivent Respimat 20-100 mcg/actuation mist 1 puff INHALATION QID RF: 0 ipratropium-albuterol 20-100 mcg/actuation Mist 1 puff INHALATION Q4H PRN (Reason: Shortness Of Breath Or Wheezing) RF: 0 Referrals Referrals: [facility] [Primary Care Provider] -
[2020-09-17 18:19] LABS: Bilirubin Direct 0.7 mg/dl (0-0.2); Thyroid Stimulating Hormone 3.31 uIu/ml (0.300-4.500)
[2020-09-17] MEDS ORDERED: MAGNESIUM HYDROXIDE SUSP 30 ML UDC PO PRN (18:47)
[2020-09-17] MEDS ORDERED: ALUMINUM/MAGNESIUM SUSP 30 ML UDC PO PRN (18:47)
[2020-09-17] MEDS ORDERED: TEMAZEPAM 15 MG CAPSULE PO PRN (18:47)
[2020-09-17] MEDS ORDERED: POLYETHYLENE (MIRALAX) 17 GM PACK PO PRN (18:47)
[2020-09-17] MEDS ORDERED: IPRATROPIUM BROMIDE/ALBUTEROL respimat INH INH SCH (18:47)
[2020-09-17] MEDS: cephALEXin 500 MG CAP PO SCH (22:15)
[2020-09-17] MEDS: DOCUSATE SODIUM 100 MG CAP PO SCH (22:16)
[2020-09-17] MEDS: ATORVASTATIN 10 MG TAB PO SCH (22:16)
[2020-09-17] MEDS: AMITRIPTYLINE HCL 10 MG TAB PO SCH (22:16)
[2020-09-17] MEDS: GABAPENTIN 300 MG CAP PO SCH (22:17)
[2020-09-17] MEDS: SPIRONOLACTONE 25 MG TAB PO SCH (22:18)
[2020-09-17] MEDS: PANTOprazole 40 MG TAB PO SCH (22:18)
[2020-09-17] MEDS: NYSTATIN/TRIAMCIN CR 15 GM TUBE EXT SCH (22:19)
[2020-09-17] MEDS: METOPROLOL SUCC 25MG EXT REL TAB PO SCH (22:19)
[2020-09-17] MEDS: DORZOLAMIDE HCL 2% OPH SOLN 10 ML BTL OPB SCH (22:22)
[2020-09-17] MEDS: Albuterol HFA 8 GM Inhaler (Combivent Respimat P&T Subs) INH SCH (22:24)
[2020-09-17] MEDS: Ipratropium HFA Inhaler (Combivent Respimat P&T Subs) INH SCH (22:24)
[2020-09-17] MEDS ORDERED: Nursing to Pharmacy Communication SCH (23:15)
[2020-09-17] MEDS: rOPINIRole HCL 0.25 MG TABLET PO SCH (23:17)
[2020-09-17 23:20] LABS: Partial Thromboplastin Ratio 2.5
[2020-09-17 23:30] LABS: Partial Thromboplastin Time 66.9 Seconds (21.0-31.0)
[2020-09-18] MEDS: cephALEXin 500 MG CAP PO SCH ×5 (00:26→19:45)
[2020-09-18 05:45] LABS: Basophils # (auto) 0.03 K/uL (0-0.2); Basophils % (auto) 0.3 %; Hematocrit (blood only) 37.9 % (42-52); Immature Granulocytes # (auto) 0.05 K/uL (0.00-0.02); Immature Granulocytes % (auto) 0.5 %; Lymphocytes # (auto) 2.13 K/uL (1.2-3.4); Lymphocytes % (auto) 20.5 %; Mean Corpuscular Hemoglobin 30.2 pg (25-34); Mean Corpuscular Hgb Conc 34.3 g/dL (32-36); Mean Corpuscular Volume 88.1 fL (80-100); Monocytes # (auto) 0.84 K/uL (0.11-0.59); Monocytes % (auto) 8.1 %; Neutrophils # (auto) 7.26 K/uL (1.4-6.5); Neutrophils % (auto) 69.6 %; Platelet Count 119 K/uL (130-400); RDW Standard Deviation 51.1 fL (36.4-46.3); White Blood Count 10.41 K/uL (4.8-10.8)
[2020-09-18 06:06] LABS: Partial Thromboplastin Ratio 4.8
[2020-09-18 06:14] LABS: Albumin Level 3.5 gm/dl (3.4-5.0); BUN Creatinine Ratio 24.3 (10-20); Est GFR (African American) 43.5 ml/min; Est GFR (Non-African American) 37.5 ml/min; Potassium 3.7 mmol/L (3.5-5.1)
[2020-09-18] MEDS: HEPARIN SODIUM/DEXTROSE 25,000 UNITS/500 ML BAG IV SCH ×2 (06:16→08:46)
[2020-09-18 06:17] LABS: Albumin Globulin Ratio 1.1 (0.9-2); Bilirubin,Total 1.5 mg/dl (0.2-1); Globulin 3.2 gm/dl (2.5-4.0); Total Protein 6.7 gm/dl (6.4-8.2)
[2020-09-18 06:27] LABS: Partial Thromboplastin Time 126.4 Seconds (21.0-31.0)
--- NOTE | 2020-09-18 06:40 | Ultrasound Report ---
BILATERAL LOWER EXTREMITY VENOUS DOPPLER HISTORY: Acute pain and swelling of the bilateral lower extremities edema, redness COMPARISON STUDY: None. FINDINGS: There is normal compressibility, flow, and augmentation within the bilateral lower extremit y deep venous systems. IMPRESSION: No DVT within the right or left lower extremity. ACT 112: Negative or not required by law. Electronically signed by: Andrea Cox M.D. 09/18/2020 6:39 AM
--- NOTE | 2020-09-18 07:12 | Ultrasound Report ---
US ankle/brachial index comp CLINICAL HISTORY: discoloration of toes COMPARISON STUDY: None. FINDINGS: The right ankle-brachial index calculi with the dorsalis pedis artery was 0.94 and the post erior tibial artery was 0.96. The left ankle-brachial index calculi with the dorsalis pedis artery wa s 0.92 and the posterior tibial artery was 0.91. The right toe brachial index was 0.96 and the left t oe brachial index was 0.92. IMPRESSION: Bilateral ankle brachial indices within normal limits. ACT 112: Negative or not required by law. Electronically signed by: Calvin Matthews M.D. 09/18/2020 7:11 AM
[2020-09-18] MEDS ORDERED: FUROSEMIDE 40 MG/4 ML VIAL IV SCH (08:00)
[2020-09-18] MEDS: UMECLIDINIUM BROMIDE 62.5MCG/BLISTER 7 PUFFS/INHALER INH SCH (08:50)
[2020-09-18] MEDS: SPIRONOLACTONE 25 MG TAB PO SCH (08:51)
[2020-09-18] MEDS: FUROSEMIDE 40 MG in SYRINGE 0 ML IV SCH ×2 (08:51→16:44)
[2020-09-18] MEDS: DORZOLAMIDE HCL 2% OPH SOLN 10 ML BTL OPB SCH ×3 (08:51→19:48)
[2020-09-18] MEDS: PANTOprazole 40 MG TAB PO SCH ×2 (08:51→19:48)
[2020-09-18] MEDS: ASPIRIN 81 MG ECTAB PO SCH (08:52)
[2020-09-18] MEDS: CALCITRIOL 0.25 MCG CAPSULE PO SCH (08:52)
[2020-09-18] MEDS: NYSTATIN/TRIAMCIN CR 15 GM TUBE EXT SCH ×2 (08:52→19:48)
[2020-09-18] MEDS: DOCUSATE SODIUM 100 MG CAP PO SCH ×2 (08:52→19:45)
[2020-09-18] MEDS: CALCIUM CARBONATE 1250MG TAB PO SCH (08:52)
[2020-09-18] MEDS: TAMSULOSIN HCL 0.4 MG CAP PO SCH (08:53)
[2020-09-18] MEDS: ZINC SULFATE 220 MG CAPSULE PO SCH (08:53)
[2020-09-18] MEDS: rOPINIRole HCL 0.25 MG TABLET PO SCH ×3 (08:53→19:45)
[2020-09-18] MEDS: CEROVITE ADV FORMULA TAB PO SCH (08:53)
[2020-09-18] MEDS: CYANOCOBALAMIN 500 MCG TABLET (VITAMIN B-12) PO SCH (08:53)
[2020-09-18] MEDS: CHOLECALCIFEROL 1,000 UNITS 25 MCG TAB PO SCH (08:53)
[2020-09-18] MEDS: FINASTERIDE 5 MG TAB PO SCH (08:53)
[2020-09-18] MEDS: OMEGA-3 (PURIFIED FISH OIL) 1 GM CAP PO SCH (08:53)
[2020-09-18] MEDS: LORATADINE 10 MG TAB PO SCH (08:54)
[2020-09-18] MEDS: allopurinoL 100 MG TAB PO SCH (08:54)
[2020-09-18] MEDS: LACTULOSE SYRUP 20 GM/30 ML UDC PO SCH (08:54)
[2020-09-18] MEDS: ASCORBIC ACID 500 MG TAB PO SCH (08:55)
[2020-09-18] MEDS: lamoTRIgine 100 MG TAB PO SCH (08:55)
[2020-09-18] MEDS: lisinopril 5 MG TAB PO SCH (08:56)
[2020-09-18] MEDS ORDERED: cefTRIAXone SODIUM 2,000 MG in DEXTROSE 5% 50 ML IV SCH (09:00)
--- NOTE | 2020-09-18 09:13 | Cardiology Consultation ---
Date of Consultation September 18, 2020 Assessment & Plan (1) Atrial fibrillation, new onset: Newly diagnosed. Asymptomatic. Ventricular rates well controlled. [id number] (Age, CHF, HTN, PVD). Currently maintained on IV heparin. 1. Continue IV heparin, start Coumadin this evening-10 mg tonight, 5 mg daily after. Continue IV heparin until therapeutic INR, goal between 23 2. Continue metoprolol succinate 25 mg daily (2) Chronic heart failure with preserved ejection fraction (HFpEF): Patient appears generally euvolemic on exam. Slight lower extremity edema however could be due to his bilateral lower extremity cellulitis. No orthopnea overnight. We will hold off on evening dose of loop diuretic at this time given serum creatinine of 1.73, increased from 1.49. Sodium slightly low at 127, previously 129-will consult with attending. 1. For now continue spironolactone, will reassess volume status in the am. 2. Continue to trend BMP. (3) Abnormal echocardiogram: Echocardiogram suggestive for cardiac amyloidosis. 1. Recommend pathology referral for fat pad biopsy (4) Elevated troponin: Mildly elevated troponin likely in the setting of new onset atrial fibrillation in combination with JS. (0.054, 0.063). Was elevated to 0.08 at [facility] on admission Can consider outpatient nuclear stress test following discharge. (5) LBBB (left bundle branch block): Chronic. (6) Bilateral lower leg cellulitis: Will refer to primary hospitalist team for bilateral lower extremity cellulitis and antibiotic management. (7) ELHAM on CPAP: Continue with CPAP use Supervising Physician Co-Signing Physician Notes Patient seen and examined with Thao ALAS Agree with findings and assessment as above. His presenting symptoms likely due to new onset atrial fibrillation with rapid ventricular response. 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 Will obtain fat pad biopsy at this time. Would consider outpatient nuclear stress test as well. Medications as above. History of Present Illness Reason for Consultation: Chest pain in the setting of new atrial fibrillation Requesting Physician: [facility]ha hospitalist group Attending Physician: Julio Hsu MD History of Present Illness 75-year-old male presenting to the hospital for admission today due to left- sided chest discomfort in the setting of new atrial fibrillation. Patient currently resides at [facility] (he has had multiple hospital admissions over the last month secondary to heart failure and JS which has caused him to become deconditioned and unable to ambulate effectively). He had an occurrence of chest pain associated with lightheadedness and dizziness. He did account for some shortness of breath and diaphoresis. EKG was done to show new onset atrial fibrillation, rate controlled. Patient was initiated on IV heparin. Patient was found to be hypervolemic and torsemide along with metolazone was held. Patient diuresed with IV Lasix 40 mg twice daily. Most recently was hospitalized at [facility] 09/07-09/12 secondary to decompensation of CHF. Was treated with IV Lasix 60 mg twice daily then transitioned to oral torsemide at discharge. Patient was also started on metolazone and Aldactone. Patient has had multiple hospitalizations in the past month secondary to heart failure and JS. Per cardiology notes from [facility] prior history of HFrEF, but EF now recovered- Echo on 08/10/2020 per [facility] revealed EF 50 to 55% with no wall motion abnormalities, RV borderline enlarged with mildly reduced RV systolic function. Upon entrance into the room patient was resting comfortably up in the chair. He is denying any exertional chest pain. Notes that his shortness of breath has significantly improved. Was able to keep sleep comfortably in bed overnight with 1 or 2 pillows and the head of the bed slightly raised. Denies any orthopnea. No palpitations. No dizziness, syncope or near syncope. No fever, chills, cough, hematochezia, melena, or hemoptysis. Continues to have some mild lower extremity edema, cellulitis noted to bilateral lower extremities. Currently on antibiotics. There is concern for PVD/PAD, prolonged capillary refill but pedal pulses are intact-plan to obtain bilateral lower extremity venous Doppler and arterial Doppler, Per hospitalist team. engine monitor reviewed showing atrial fibrillation with an average heart rate in the 60s to 70s. Negative volume balance of 335 mL Weight today 143 kg. Past medical history: * Paroxysmal atrial fibrillation, diagnosed 09/17/2020, [id number] (Age, CHF, HTN, PVD) * Coronary artery disease, unknown specifics * Chronic left bundle branch block * Hypertension * CHF, history of reduced systolic function-EF has since recovered. Known diastolic dysfunction. * GERD * Obesity with ELHAM, on CPAP * Bipolar * Dyslipidemia * Pulmonary hypertension Allergies Allergy/AdvReac Type Severity Reaction Status Date / Time benzalkonium chloride Allergy Unknown Unverified 09/17/20 15:55 brimonidine Allergy Unknown Unverified 09/17/20 15:55 inositol Allergy Unknown Unverified 09/17/20 15:55 niacin Allergy Unknown Unverified 09/17/20 15:55 pollen extracts Allergy Unknown Unverified 09/17/20 15:55 timolol Allergy Unknown Unverified 09/17/20 15:55 travoprost Allergy Unknown Unverified 09/17/20 15:55 Home Medications Medication Instructions Recorded Confirmed Type allopurinol 100 mg tablet 200 mg PO DAILY 09/17/20 09/17/20 History amitriptyline 10 mg tablet 10 mg PO HS 09/17/20 09/17/20 History ascorbic acid (vitamin C) 250 mg 500 mg PO DAILY 09/17/20 09/17/20 History tablet aspirin 81 mg tablet,delayed 81 mg PO DAILY 09/17/20 09/17/20 History release (Aspirin Low Dose) atorvastatin 10 mg tablet (Lipitor) 10 mg PO HS 09/17/20 09/17/20 History calcitriol 0.25 mcg capsule 0.25 mcg PO DAILY 09/17/20 09/17/20 History (Rocaltrol) calcium carbonate 500 mg calcium 500 mg PO DAILY 09/17/20 09/17/20 History (1,250 mg) chewable tablet celecoxib 100 mg capsule (Celebrex) 200 mg PO BID 09/17/20 09/17/20 History cephalexin 500 mg capsule 500 mg PO QID 09/17/20 09/17/20 History cholecalciferol (vitamin D3) 25 25 mcg PO DAILY 09/17/20 09/17/20 History mcg (1,000 unit) tablet (Vitamin D3) cyanocobalamin (vitamin B-12) 1,000 mcg PO DAILY 09/17/20 09/17/20 History 1,000 mcg tablet docusate sodium 100 mg capsule 100 mg PO BID 09/17/20 09/17/20 History dorzolamide 2 % eye drops 1 drp OPB TID 09/17/20 09/17/20 History enoxaparin 40 mg/0.4 mL 40 mg SUBCUT DAILY 09/17/20 09/17/20 History subcutaneous syringe (Lovenox) finasteride 5 mg tablet (Proscar) 5 mg PO DAILY 09/17/20 09/17/20 History gabapentin 300 mg capsule 1,500 mg PO HS 09/17/20 09/17/20 History (Neurontin) ipratropium 20 mcg-albuterol 100 1 puff INHALATION Q4H PRN 09/17/20 09/17/20 History mcg/actuation mist for inhalation ipratropium 20 mcg-albuterol 100 1 puff INHALATION QID 09/17/20 09/17/20 History mcg/actuation mist for inhalation (Combivent Respimat) lactulose 10 gram/15 mL oral 20 g PO DAILY 09/17/20 09/17/20 History solution (Enulose) lamotrigine 150 mg tablet 150 mg PO DAILY 09/17/20 09/17/20 History (Lamictal) lisinopril 5 mg tablet (Zestril) 5 mg PO DAILY 09/17/20 09/17/20 History loratadine 10 mg tablet 10 mg PO DAILY 09/17/20 09/17/20 History metolazone 5 mg tablet 5 mg PO DAILY 09/17/20 09/17/20 History metoprolol succinate 25 mg 25 mg PO HS 09/17/20 09/17/20 History tablet,extended release 24 hr (Toprol XL) multivitamin with iron-mineral 1 tab PO DAILY 09/17/20 09/17/20 History omega-3 fatty acids 1,000 mg PO DAILY 09/17/20 09/17/20 History pantoprazole 40 mg tablet,delayed 40 mg PO BID 09/17/20 09/17/20 History release (Protonix) ropinirole 0.5 mg tablet 0.5 mg PO TID 09/17/20 09/17/20 History spironolactone 50 mg tablet 50 mg PO BID 09/17/20 09/17/20 History (Aldactone) tamsulosin 0.4 mg capsule (Flomax) 0.4 mg PO DAILY 09/17/20 09/17/20 History temazepam 15 mg capsule 15 mg PO HS PRN 09/17/20 09/17/20 History torsemide 20 mg tablet 20 mg PO BID 09/17/20 09/17/20 History umeclidinium 62.5 mcg/actuation 1 inh INHALATION DAILY 09/17/20 09/17/20 History blister powder for inhalation zinc sulfate 220 mg capsule 220 mg PO DAILY 09/17/20 09/17/20 History Patient History Medical History 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 BPH (benign prostatic hyperplasia) CAD (coronary artery disease) Chronic heart failure with preserved ejection fraction (HFpEF) COPD (chronic obstructive pulmonary disease) GERD (gastroesophageal reflux disease) Hyperparathyroidism LBBB (left bundle branch block) chronic ELHAM on CPAP POAG (primary open-angle glaucoma) RLS (restless legs syndrome) Surgical History History of cataract extraction History of cholecystectomy History of hip replacement History of knee joint replacement History of laminectomy History of rotator cuff surgery Family History Other Heart disease Social History Smoking Status: Never smoker Second Hand Exposure: Yes; Hx Alcohol Use: No Hx Substance Use: No Preferred Language: Armenian Communication Ability: Effective University Relations Vice President Required: No Beliefs That Will Affect Care: None marital status: Current Living Situation: Spouse Current Living Situation Comment: Lives with Other Information That Helps Us Care for You: No Feels Safe at Home: Yes Safety Concerns: Feels Safe At This Time Assistive Devices: Walker Review of Systems Review of Systems: All systems reviewed & are unremarkable except as noted in HPI & below Physical Exam Physical Exam: General: No acute distress. A+Ox3. HEENT: Normocephalic. Atraumatic. Conjunctiva and sclera clear. NECK: No carotid bruits. No JVD. Carotid upstrokes are brisk. Heart: Diminished lung sounds. Regular rate, irregular irregular rhythm. Lungs: Diminished lung sounds, no wheezing or rales noted. Abdomen: Normal bowel sounds. Tot/obese. Nontender. No masses or organomegaly. No abdominal bruits. Extremities: +1 bilateral pedal edema, trace edema over shins. Discoloration noted on bilateral lower extremities, areas marked with marker. Pulses: Pulses intact NEURO: No focal deficits. PSYCH: Normal. Results & Data ([facility]) Vital Signs (Past 12 Hours) Vital Signs Temp Pulse Pulse Resp BP BP Pulse Ox 09/18/20 08:32 36.4 C L 67 18 120/58 L 93 09/18/20 02:44 36.5 C 78 18 124/69 92 09/18/20 02:27 87 16 93 09/18/20 00:04 72 09/17/20 22:47 36.6 C 75 24 127/73 93 Diagnostic Findings Echo 09/18/2020 Severe concentric LVH with speckling pattern of the myocardium, highly suggestive of amyloidosis LVEF 50 to 55% Abnormal septal wall motion consistent with LBBB pattern, otherwise normal wall motion Grade 3 diastolic dysfunction consistent with restrictive physiology Mildly reduced RV systolic function Aortic sclerosis moderate without significant aortic stenosis Mild mitral regurgitation Moderate left atrial enlargement EKG 09/18/2020 A. fib, left bundle branch block, 62 bpm Data per [facility] [place] EK07/31/2020 Sinus rhythm with prolonged first-degree AV block. Left bundle branch block. Heart rate 72. Echo: 08/10/2020 Impression: 1. This study is technically difficult and improved to adequate with the use of Definity. 2. Borderline global function of the left ventricle. 3. LV ejection fraction is 50 - 55%. 4. No left ventricular regional wall motion abnormalities. 5. The right ventricular size is borderline enlarged. 6. Global RV systolic function is mildly reduced. 7. No pericardial effusion is seen
[2020-09-18] MEDS: Ipratropium HFA Inhaler (Combivent Respimat P&T Subs) INH SCH ×4 (09:37→19:21)
[2020-09-18] MEDS: Albuterol HFA 8 GM Inhaler (Combivent Respimat P&T Subs) INH SCH ×4 (09:37→19:21)
[2020-09-18 13:46] LABS: Partial Thromboplastin Ratio 2.5
--- NOTE | 2020-09-18 13:52 | Electrocardiogram Report ---
Test Reason : Blood Pressure : / mmHG Vent. Rate : 062 BPM Atrial Rate : 072 BPM P-R Int : 000 ms QRS Dur : 162 ms QT Int : 482 ms P-R-T Axes : 000 -66 087 degrees QTc Int : 489 ms Poor data quality, interpretation may be adversely affected Atrial fibrillation Left axis deviation Left bundle branch block Abnormal ECG When compared with ECG of 17-SEP-2020 12:17, No significant change was found Confirmed by Dennis Richardson ([id number]) on 09/18/2020 1:52:18 PM Referred By: [facility] Confirmed By:Lupillo Richardson
--- NOTE | 2020-09-18 14:00 | Electrocardiogram Report ---
Test Reason : Blood Pressure : / mmHG Vent. Rate : 062 BPM Atrial Rate : 065 BPM P-R Int : 000 ms QRS Dur : 176 ms QT Int : 500 ms P-R-T Axes : 000 -58 013 degrees QTc Int : 507 ms Atrial fibrillation Left axis deviation Left bundle branch block Abnormal ECG When compared with ECG of 17-SEP-2020 16:09, (unconfirmed) Nonspecific T wave abnormality now evident in Inferior leads Confirmed by Dennis Richardson ([id number] on 09/18/2020 1:59:35 PM Referred By: [facility] Confirmed By:Lupillo Richardson
--- NOTE | 2020-09-18 16:30 | Consultation Report ---
DATE OF CONSULT: 09/18/2020. REASON FOR CONSULTATION: Acute renal failure and hyponatremia. HISTORY OF PRESENT ILLNESS: The patient is a 75-year-old male who has had significant medical issues in the last few months, predominantly congestive heart failure, requiring hospitalization. He presented to the hospital yesterday when he was found to have disorientation and he was found to have new onset atrial fibrillation. It is hard to obtain any history from the patient as he is constantly trying to sleep. The patient was recently discharged from [facility] following an admission for acute on chronic congestive heart failure. He was started on multiple new medications including metolazone 5 mg daily, spironolactone 50 mg twice daily as well as torsemide 20 twice daily and he is also on lisinopril as well as Celebrex according to the medication list. I have not been able to confirm whether he is actually taking Celebrex 200 twice daily as in the MAR or not. He was given one dose of IV Lasix yesterday 40 mg. He has made some urine. He does have a Jennings catheter. At this point, lisinopril and metolazone is on hold as well as Lasix, but he is still written to get spironolactone. He just had an echocardiogram done which is raising concern about possible amyloidosis. Patient still has some signs of venous stasis and as per the patient, he had significant swelling in his lower extremity in the recent past. Allergy list was reviewed and is as per the medicine reconciliation list. Home medication list was reviewed from the H and P, but as stated earlier, I do not know for sure whether he was taking Celebrex or not. PAST MEDICAL AND SURGICAL HISTORY: Coronary artery disease, chronic heart failure with preserved ejection fraction, but severely dilated heart chambers, COPD, GERD, hyperparathyroidism secondary, left bundle branch block, obstructive sleep apnea on CPAP; morbid obesity, cholecystectomy, hip replacement, knee replacement, rotator cuff surgery. SOCIAL HISTORY: No smoking, no alcohol. He is and lives with his spouse, but currently at the [facility]. REVIEW OF SYSTEMS: Unable to obtain as the patient keeps going to sleep and barely answers. PHYSICAL EXAMINATION: GENERAL: Morbid obese white male. VITAL SIGNS: Blood pressure is 111/59, pulse rate 65, temperature 36.8, 95% on room air. HEENT: Mucous membrane is moist. NECK: Supple. Cannot assess JVD because of obesity. CHEST: Bilateral decreased breath sounds. Basal crackles heard. CVS: S1 and S2 irregular. Soft systolic murmur heard. ABDOMEN: Morbidly obese. EXTREMITIES: Shows trace to 1+ edema with lot of signs of venous stasis and recent edema. NEUROLOGIC: He is awake and alert, but very somnolent and hard to take history, moving all 4 extremities. No focal deficit noted. LABORATORY TEST: Hemoglobin is 13.0, platelet count 119, blood work from this morning show sodium 127, potassium 3.7, BUN is 42, creatinine is 1.73 on admission yesterday was 1.49 a week ago at the time of discharge from [facility], it was normal at 1.0. BNP is 2585. Urine test not done. Chest x-ray shows pulmonary congestion, but no overt pulmonary edema. Echocardiogram was done today and the report says normal ejection fraction at 55%, but significant abnormalities noted as well as severe diastolic dysfunction, severe concentric left ventricular hypertrophy with the speckling pattern suggestive of amyloidosis. ASSESSMENT AND PLAN: A 75-year-old male with significant cardiac history in the recent past requiring multiple hospitalizations now admitted with new onset atrial fibrillation. He also has acute kidney injury as well as hyponatremia, for which I have been consulted. 1. Acute kidney injury, this is multifactorial. We do have to do urine test first to broadly categorize the etiology. He has been started on way too many medications all at once, including metolazone, spironolactone, torsemide. If these medications were all started at the same time and he was already taking high dose Celebrex, it is to be expected, he will have acute renal failure. I do not know for sure whether he is actually taking Celebrex, but that should be avoided given significant problem with congestive heart failure, now atrial fibrillation as well as future anticoagulation. His diuretics should be more simpler and I would strongly recommend to use loop diuretics only in his case given hyponatremia. Stop metolazone, stop Aldactone. Restart Lasix 40 IV b.i.d. He might need higher dose and we will do that based on his urine response. Given the echocardiogram findings, we will also do a urine electrophoresis, as well as serum electrophoresis to evaluate for amyloidosis and myeloma. Urine test should come back lot faster and typically amyloidosis is associated with massive proteinuria. 2. Hyponatremia. This is related with hypervolemic hyponatremia in the setting of congestive heart failure as well as multiple medications, which are known to cause hyponatremia. Hyponatremia is not caused by loop diuretic and is very likely to be caused by metolazone and to some extent spironolactone. Given this stop metolazone. Stop Aldactone. Restart IV Lasix. Maintain fluid restriction of 1.5 liters per day. Low-salt diet of 2 grams per day. Thank you very much for the consult. I will continue to follow. Job ID: [id number] [facility] K[facility] CANCER CENTERKatherine
[2020-09-18 18:20] LABS: Appearance Urine Clear (Clear); Bacteria Urine Automated Negative (Negative); Bilirubin Urine Negative (Negative); Blood Urine Trace (Negative); Color Urine Yellow; Glucose Urine UA Negative (Negative); Ketones Urine Negative (Negative); Leukocyte Esterase Urine Negative (Negative); Nitrite Urine Negative (Negative); Protein Urine Negative (Negative); Specific Gravity Urine 1.009 (1.000-1.030); Urobilinogen Urine Negative (Negative); pH Urine 7.5 (4.5-7.5)
[2020-09-18 18:38] LABS: Creatinine Urine Random 37.6 mg/dl; Protein Creatinine Ratio Urine 0.2 (0-0.2); Total Protein Urine Random 6.8 mg/dl (0-11.9)
--- NOTE | 2020-09-18 18:57 | Hospitalist Progress Note ---
Date of Service September 18, 2020 Assessment & Plan (1) Atrial fibrillation, new onset: (2) Elevated troponin: (3) Left-sided chest pain: (4) CAD (coronary artery disease): (5) Acute on chronic heart failure with preserved ejection fraction (HFpEF): (6) LBBB (left bundle branch block): (7) JS (acute kidney injury): (8) ELHAM on CPAP: (9) Bilateral lower leg cellulitis: Plan: Patient is a 75 yr male with H/O CAD, chronic LBBB, history of HFrEF but EF now recovered, HTN, HLD, ELHAM on CPAP, morbid obesity, pulmonary hypertension, bipolar, GERD, RLS, POAG who presents to ED secondary to chest pain. New onset atrial fibrillation Elevated troponin in setting of Afib, JS H/O CAD, LBBB Normal TSH Continue metoprolol On IV heparin for anticoagulation Appreciate cardiology input Start Coumadin Monitor INR Acute on Chronic HFpEF Held Oral diuretics --ECHO: Severe concentric LVH along with speckling pattern of the myocardium highly suggestive of amyloidosis. EF 50 to 55%. Abnormal septal wall motion consistent with left bundle branch block pattern. Grade 3 diastolic dysfunction consistent with restrictive physiology. Mild mitral regurgitation. Moderate left atrial enlargement. Continue IV Lasix Monitor I's and O's, daily weight Appreciate Cardiology Input Suspected amyloidosis ECHO as above Immunofixation serum, urine electrophoresis ordered Acute kidney injury Likely multifactorial Celebrex discontinued Hold metaxalone, torsemide, spironolactone Avoid nephrotoxic agents as able Appreciate nephrology input Monitor renal function Hyponatremia Likely multifactorial--volume overload, medications: Methadone, spironolactone Continue fluid restriction Monitor sodium levels Sodium:127 Bilateral lower extremity cellulitis Was seen and evaluated by infectious disease during recent hospitalization treated with IV Rocephin On Oral Keflex at d/c to be completed at end of day on 09/19 Normal procalcitonin B/L lower ext edema and discoloration concern for PVD/PAD -BONNIE:Bilateral ankle brachial indices within normal limits. -Venous Doppler:No DVT within the right or left lower extremity. Intertrigo place on nystatin/triamcinolone consult wound nurse ELHAM on CPAP CPAP at HS COPD no acute exacerbation continue home inhalers DVT Px: IV Heparin, Coumadin Code Status Full Code Admission and Anticipated Discharge Date Admission Date: September 17, 2020 Subjective Patient is seen and examined at bedside States having dyspnea on exertion Reports feeling tired Also states having abdominal distention, leg edema Offers no other complaints Discussed with nephrology today Review of Systems Review of Systems: All systems reviewed & are unremarkable except as noted in Subjective Physical Exam Physical Exam: Physical Exam: Vitals signs as noted above General Appearance:Moderately built and nourished, no apparent distress Head: normocephalic, Atraumatic Eyes: normal inspection, EOMI Neck: supple, Trachea midline Respiratory/Chest: Decreased breath sounds, CTA, No accessory muscle use Cardiovascular: Irregularly irregular, No murmur Abdomen/GI:Soft, Non tender, distended, Bowel sounds present Extremities/Musculoskeletal:normal inspection, B/L LE edema, +Rash Neurologic/Psych:AAOX3, grossly no focal neurological deficits Skin: normal color, warm Results & Data Results & Data ([facility]) Vital Signs (Past 12 Hours) Vital Signs Temp Pulse Pulse Resp BP BP Pulse Ox 09/18/20 16:40 76 09/18/20 16:06 36.3 C L 68 20 101/61 94 09/18/20 15:07 69 16 91 09/18/20 11:14 36.8 C 65 18 111/59 L 95 09/18/20 10:58 64 16 95 09/18/20 08:32 36.4 C L 67 18 120/58 L 93 09/18/20 08:00 63 Laboratory Results Short CBC 09/18/20 Range/Units 05:33 WBC 10.41 (4.8-10.8) K/uL Hgb 13.0 L (14.0-18.0) g/dL Hct 37.9 L (42-52) % Plt Count 119 L (130-400) K/uL BMP 09/18/20 05:33 Sodium 127 L Potassium 3.7 Chloride 92 L Carbon Dioxide 31 BUN 42 H Creatinine 1.73 H Glucose 138 H Calcium 9.0 Cardiac Enzymes 09/17/20 09/18/20 Range/Units 18:47 00:34 Troponin I 0.054 H* 0.063 H* (0-0.045) ng/ml Liver Function 09/18/20 Range/Units 05:33 Total Bilirubin 1.5 H (0.2-1) mg/dl AST 39 H (15-37) U/L ALT 56 (12-78) U/L Alkaline Phosphatase 89 (45-117) U/L Albumin 3.5 (3.4-5.0) gm/dl Urine 09/18/20 Range/Units 17:49 Urine Color Yellow Urine Appearance Clear (Clear) Urine pH 7.5 (4.5-7.5) Ur Specific [place] 1.009 (1.000-1.030) Urine Protein Negative (Negative) Urine Glucose (UA) Negative (Negative)
[2020-09-18] MEDS: ATORVASTATIN 10 MG TAB PO SCH (19:45)
[2020-09-18] MEDS: GABAPENTIN 300 MG CAP PO SCH (19:46)
[2020-09-18] MEDS: METOPROLOL SUCC 25MG EXT REL TAB PO SCH (19:47)
[2020-09-18] MEDS: AMITRIPTYLINE HCL 10 MG TAB PO SCH (19:47)
[2020-09-18] MEDS: WARFARIN SOD 5 MG TAB PO SCH (19:52)
[2020-09-19 00:02] LABS: Partial Thromboplastin Ratio 2.7
[2020-09-19 00:13] LABS: Partial Thromboplastin Time 71.8 Seconds (21.0-31.0)
[2020-09-19] MEDS: HEPARIN SODIUM/DEXTROSE 25,000 UNITS/500 ML BAG IV SCH (03:20)
[2020-09-19 06:27] LABS: INR 1.1 (0.9-1.1); Prothrombin Time 11.4 Seconds (9.0-12.0)
[2020-09-19 06:40] LABS: Hematocrit (blood only) 37.2 % (42-52); Mean Corpuscular Hemoglobin 30.7 pg (25-34); Mean Corpuscular Hgb Conc 34.9 g/dL (32-36); Mean Corpuscular Volume 87.9 fL (80-100); Platelet Count 159 K/uL (130-400); RDW Coefficient of Variation 16.1 % (11.5-14.5); RDW Standard Deviation 51.8 fL (36.4-46.3); Red Blood Count 4.23 M/uL (4.7-6.1); White Blood Count 13.63 K/uL (4.8-10.8)
[2020-09-19 06:53] LABS: BUN Creatinine Ratio 30.6 (10-20); Creatinine Clr Calc Pharmacy 60.7 ml/min; Est GFR (African American) 47.8 ml/min; Est GFR (Non-African American) 41.2 ml/min
[2020-09-19] MEDS: Albuterol HFA 8 GM Inhaler (Combivent Respimat P&T Subs) INH SCH ×4 (07:01→19:19)
[2020-09-19] MEDS: Ipratropium HFA Inhaler (Combivent Respimat P&T Subs) INH SCH ×4 (07:02→19:19)
[2020-09-19 07:27] LABS: Potassium 3.4 mmol/L (3.5-5.1)
[2020-09-19 07:28] LABS: Magnesium 1.9 mg/dl (1.8-2.4)
--- NOTE | 2020-09-19 07:32 | Cardiology Progress Note ---
Date of Service September 19, 2020 Assessment & Plan (1) Atrial fibrillation, new onset: Plan: Asymptomatic. Ventricular rates well controlled. [id number] (Age, CHF, HTN, PVD). Currently maintained on IV heparin. 1. Continue IV heparin till INR therapeutic with Coumadin, goal INR between 2-3. (INR today 1.1). 2. Continue metoprolol succinate 25 mg daily (2) Chronic heart failure with preserved ejection fraction (HFpEF): Plan: Nephrology on board given his kidney function. Patient appears mildly hypervolemic on exam, lower extremity edema is improving. Continued SOB. 1. Continue Lasix 40 mg BID, Continue to trend BMP. 2. Maintain fluid restriction of 1.5 liters per day. Low-salt diet of 2 grams per day, Strict I&O. (3) Abnormal echocardiogram: Plan: Echocardiogram suggestive for cardiac amyloidosis - discussed with patient regarding the diagnosis of possible Amyloid, patient is agreeable to further testing. 1. Recommend pathology referral for fat pad biopsy 2. Urine electrophoresis, as well as serum electrophoresis to evaluate for amyloidosis and myeloma- per nephrology (4) Elevated troponin: Plan: Mildly elevated troponin likely in the setting of new onset atrial fibrillation in combination with JS. (0.054, 0.063). Was elevated to 0.08 at [facility] on admission Can consider outpatient nuclear stress test following discharge. (5) LBBB (left bundle branch block): Plan: Chronic. (6) Bilateral lower leg cellulitis: Plan: Will refer to primary hospitalist team for bilateral lower extremity cellulitis and antibiotic management. (7) ELHAM on CPAP: Plan: Encourage CPAP use. Admission and Anticipated Discharge Date Admission Date: September 17, 2020 Supervising Physician Co-Signing Physician Notes Patient seen and examined with BISHOP Ignacio. Agree with findings and assessment as above. Patient states he is feeling well today but obviously tachypneic at rest. Nursing reports patient continues to refuse CPAP therapy. Still examines is volume overloaded we'll continue to diuresis. Subjective Upon entrance in to the room patient resting comfortably in bed. No acute distress. Did have some mild dyspnea overnight with exertion. Sleeping with HOB elevated, notes improvement in lower extremity edema. Tolerating IV lasix, urinating adequately. No chest pain. No palpitatons, dizziness, or syncope. Refusing cpap over night. system sales consultant reviewed: karen with PVCs, 60 bpm. Patient is -1.5 L. Weight today is 142.8 kg, previously 143 kg. Past medical history: -Paroxysmal atrial fibrillation, diagnosed 09/17/2020, [id number] (Age, CHF, HTN, PVD) -Coronary artery disease, unknown specifics -Chronic left bundle branch block -Hypertension -CHF, history of reduced systolic function-EF has since recovered. Known diastolic dysfunction. -GERD -Obesity with ELHAM, on CPAP -Bipolar -Dyslipidemia -Pulmonary hypertension Review of Systems Review of Systems: All systems reviewed & are unremarkable except as noted in HPI & below Physical Exam Physical Exam: General: No acute distress. A+Ox3. HEENT: Normocephalic. Atraumatic. Conjunctiva and sclera clear. NECK: No carotid bruits. No JVD. Carotid upstrokes are brisk. Heart: Diminished lung sounds. Regular rate, irregular irregular rhythm. Lungs: Diminished lung sounds, no wheezing or rales noted. Abdomen: Normal bowel sounds. Taut/obese. Nontender. No masses or organomegaly. No abdominal bruits. Extremities: Trace bilateral pedal edema, trace edema over shins. Discoloration noted on bilateral lower extremities, areas marked with marker, improving. Pulses: Pulses intact NEURO: No focal deficits. PSYCH: Normal. Results & Data ([facility]) Vital Signs (Past 12 Hours) Vital Signs Temp Pulse Pulse Resp BP BP Pulse Ox 09/19/20 07:06 36.6 C 59 L 17 114/62 94 09/19/20 07:03 57 L 17 93 09/19/20 03:35 36.4 C L 58 L 20 114/62 94 09/19/20 00:48 90 18 93 09/19/20 00:21 70 09/18/20 23:15 36.7 C 69 18 117/63 92 09/18/20 19:41 36.8 C 71 18 118/62 95 Laboratory Results 09/19/20 09/19/20 09/19/20 Range/Units 05:36 05:36 05:36 WBC 13.63 H (4.8-10.8) K/uL RBC 4.23 L (4.7-6.1) M/uL Hgb 13.0 L (14.0-18.0) g/dL Hct 37.2 L (42-52) % MCV 87.9 (80-100) fL MCH 30.7 (25-34) pg MCHC 34.9 (32-36) g/dL RDW Std Deviation 51.8 H (36.4-46.3) fL RDW Coeff of Rohit 16.1 H (11.5-14.5) % Plt Count 159 (130-400) K/uL MPV 10.0 (7.4-10.4) fL PT (9.0-12.0) Seconds INR (0.9-1.1) APTT 62.6 H* (21.0-31.0) Seconds PTT Ratio 2.4 Sodium (136-145) mmol/L Potassium (3.5-5.1) mmol/L Chloride (98-107) mmol/L Carbon Dioxide (21-32) mmol/L Anion Gap (3-11) BUN (7-18) mg/dl Creatinine (0.6-1.4) mg/dl Est Cr Clr Drug Dosing ml/min Est GFR ( Amer) ml/min Est GFR (Non-Af Amer) ml/min BUN/Creatinine Ratio (10-20) Glucose (70-99) mg/dl Calcium (8.5-10.1) mg/dl Magnesium (1.8-2.4) mg/dl Urine Color Urine Appearance (Clear) Urine pH (4.5-7.5) Ur Specific [place] (1.000-1.030) Urine Protein (Negative) Urine Glucose (UA) (Negative) Urine Ketones (Negative) Urine Blood (Negative) Urine Nitrite (Negative) Urine Bilirubin (Negative) Urine Urobilinogen (Negative) Ur Leukocyte Esterase (Negative) Urine WBC (Auto) (0-5) /hpf Urine RBC (Auto) (0-4) /hpf U Hyaline Cast (Auto) (0-5) /lpf U Epithel Cells (Auto) (0-5) /lpf Urine Bacteria (Auto) (Negative) Ur Random Creatinine mg/dl U Random Total Protein (0-11.9) mg/dl Ur Creatinine mg/dL Protein/Creatinin Ratio (0-0.2) Urine Albumin (%) U Sfyyp-5-Uicuxrpp (%) U Hgnth-7-[place] (%) U Beta Globulin (%) U Gamma Globulin (%) U Abnormal Prot Band 1 U Abnormal Prot Band 2 U Abnormal Prot Band 3 Urine PEP Interpret Serum Immunofixation Pending 09/19/20 09/19/20 09/18/20 Range/Units 05:36 05:36 23:04 WBC (4.8-10.8) K/uL RBC (4.7-6.1) M/uL Hgb (14.0-18.0) g/dL Hct (42-52) % MCV (80-100) fL MCH (25-34) pg MCHC (32-36) g/dL RDW Std Deviation (36.4-46.3) fL RDW Coeff of Rohit (11.5-14.5) % Plt Count (130-400) K/uL MPV (7.4-10.4) fL PT 11.4 (9.0-12.0) Seconds INR 1.1 (0.9-1.1) APTT 71.8 H* (21.0-31.0) Seconds PTT Ratio 2.7 Sodium 130 L (136-145) mmol/L Potassium 3.4 L (3.5-5.1) mmol/L Chloride 92 L (98-107) mmol/L Carbon Dioxide 28 (21-32) mmol/L Anion Gap 10.0 (3-11) BUN 49 H (7-18) mg/dl Creatinine 1.60 H (0.6-1.4) mg/dl Est Cr Clr Drug Dosing 60.7 ml/min Est GFR ( Amer) 47.8 ml/min Est GFR (Non-Af Amer) 41.2 ml/min BUN/Creatinine Ratio 30.6 H (10-20) Glucose 137 H (70-99) mg/dl Calcium 9.0 (8.5-10.1) mg/dl Magnesium 1.9 (1.8-2.4) mg/dl Urine Color Urine Appearance (Clear) Urine pH (4.5-7.5) Ur Specific [place] (1.000-1.030) Urine Protein (Negative) Urine Glucose (UA) (Negative) Urine Ketones (Negative) Urine Blood (Negative) Urine Nitrite (Negative) Urine Bilirubin (Negative) Urine Urobilinogen (Negative) Ur Leukocyte Esterase (Negative) Urine WBC (Auto) (0-5) /hpf Urine RBC (Auto) (0-4) /hpf U Hyaline Cast (Auto) (0-5) /lpf U Epithel Cells (Auto) (0-5) /lpf Urine Bacteria (Auto) (Negative) Ur Random Creatinine mg/dl U Random Total Protein (0-11.9) mg/dl Ur Creatinine mg/dL Protein/Creatinin Ratio (0-0.2) Urine Albumin (%) U Pfxux-2-Wlalzirg (%) U Obfsr-2-Lpldybgv (%) U Beta Globulin (%) U Gamma Globulin (%) U Abnormal Prot Band 1 U Abnormal Prot Band 2 U Abnormal Prot Band 3 Urine PEP Interpret Serum Immunofixation 09/18/20 09/18/20 09/18/20 Range/Units 17:49 17:49 17:49 WBC (4.8-10.8) K/uL RBC (4.7-6.1) M/uL Hgb (14.0-18.0) g/dL Hct (42-52) % MCV (80-100) fL MCH (25-34) pg MCHC (32-36) g/dL RDW Std Deviation (36.4-46.3) fL RDW Coeff of Rohit (11.5-14.5) % Plt Count (130-400) K/uL MPV (7.4-10.4) fL PT (9.0-12.0) Seconds INR (0.9-1.1) APTT (21.0-31.0) Seconds PTT Ratio Sodium (136-145) mmol/L Potassium (3.5-5.1) mmol/L Chloride (98-107) mmol/L Carbon Dioxide (21-32) mmol/L Anion Gap (3-11) BUN (7-18) mg/dl Creatinine (0.6-1.4) mg/dl Est Cr Clr Drug Dosing ml/min Est GFR ( Amer) ml/min Est GFR (Non-Af Amer) ml/min BUN/Creatinine Ratio (10-20) Glucose (70-99) mg/dl Calcium (8.5-10.1) mg/dl Magnesium (1.8-2.4) mg/dl Urine Color Yellow Urine Appearance Clear (Clear) Urine pH 7.5 (4.5-7.5) Ur Specific [place] 1.009 (1.000-1.030) Urine Protein Negative (Negative) Urine Glucose (UA) Negative (Negative) Urine Ketones Negative (Negative) Urine Blood Trace H (Negative) Urine Nitrite Negative (Negative) Urine Bilirubin Negative (Negative) Urine Urobilinogen Negative (Negative) Ur Leukocyte Esterase Negative (Negative) Urine WBC (Auto) 1-5 (0-5) /hpf Urine RBC (Auto) 5-10 H (0-4) /hpf U Hyaline Cast (Auto) 1-5 (0-5) /lpf U Epithel Cells (Auto) 10-20 H (0-5) /lpf Urine Bacteria (Auto) Negative (Negative) Ur Random Creatinine 37.6 mg/dl U Random Total Protein Pending 6.8 (0-11.9) mg/dl Ur Creatinine mg/dL Pending Protein/Creatinin Ratio Pending 0.2 (0-0.2) Urine Albumin (%) Pending U Efoth-7-Doqbymil (%) Pending U Yznuv-6-Prhzubtm (%) Pending U Beta Globulin (%) Pending U Gamma Globulin (%) Pending U Abnormal Prot Band 1 Pending U Abnormal Prot Band 2 Pending U Abnormal Prot Band 3 Pending Urine PEP Interpret Pending Serum Immunofixation 09/18/20 Range/Units 12:34 WBC (4.8-10.8) K/uL RBC (4.7-6.1) M/uL Hgb (14.0-18.0) g/dL Hct (42-52) % MCV (80-100) fL MCH (25-34) pg MCHC (32-36) g/dL RDW Std Deviation (36.4-46.3) fL RDW Coeff of Rohit (11.5-14.5) % Plt Count (130-400) K/uL MPV (7.4-10.4) fL PT (9.0-12.0) Seconds INR (0.9-1.1) APTT 67.0 H* (21.0-31.0) Seconds PTT Ratio 2.5 Sodium (136-145) mmol/L Potassium (3.5-5.1) mmol/L Chloride (98-107) mmol/L Carbon Dioxide (21-32) mmol/L Anion Gap (3-11) BUN (7-18) mg/dl Creatinine (0.6-1.4) mg/dl Est Cr Clr Drug Dosing ml/min Est GFR ( Amer) ml/min Est GFR (Non-Af Amer) ml/min BUN/Creatinine Ratio (10-20) Glucose (70-99) mg/dl Calcium (8.5-10.1) mg/dl Magnesium (1.8-2.4) mg/dl Urine Color Urine Appearance (Clear) Urine pH (4.5-7.5) Ur Specific [place] (1.000-1.030) Urine Protein (Negative) Urine Glucose (UA) (Negative) Urine Ketones (Negative) Urine Blood (Negative) Urine Nitrite (Negative) Urine Bilirubin (Negative) Urine Urobilinogen (Negative) Ur Leukocyte Esterase (Negative) Urine WBC (Auto) (0-5) /hpf Urine RBC (Auto) (0-4) /hpf U Hyaline Cast (Auto) (0-5) /lpf U Epithel Cells (Auto) (0-5) /lpf Urine Bacteria (Auto) (Negative) Ur Random Creatinine mg/dl U Random Total Protein (0-11.9) mg/dl Ur Creatinine mg/dL Protein/Creatinin Ratio (0-0.2) Urine Albumin (%) U Laaxw-3-Pbzkxbkn (%) U Fimbv-1-Zvqynihk (%) U Beta Globulin (%) U Gamma Globulin (%) U Abnormal Prot Band 1 U Abnormal Prot Band 2 U Abnormal Prot Band 3 Urine PEP Interpret Serum Immunofixation
[2020-09-19 07:57] LABS: Partial Thromboplastin Ratio 2.4
[2020-09-19 07:58] LABS: Partial Thromboplastin Time 62.6 Seconds (21.0-31.0)
--- NOTE | 2020-09-19 08:34 | Electrocardiogram Report ---
Test Reason : Blood Pressure : / mmHG Vent. Rate : 068 BPM Atrial Rate : 079 BPM P-R Int : 000 ms QRS Dur : 176 ms QT Int : 508 ms P-R-T Axes : 000 -66 128 degrees QTc Int : 540 ms Atrial fibrillation Left axis deviation Left bundle branch block Abnormal ECG When compared with ECG of 18-SEP-2020 06:20, Nonspecific T wave abnormality no longer evident in Inferior leads Confirmed by Dennis Richardson [id number] on 09/19/2020 8:34:12 AM Referred By: [facility] Confirmed By:Lupillo Richardson
[2020-09-19] MEDS: NYSTATIN/TRIAMCIN CR 15 GM TUBE EXT SCH ×2 (08:58→22:15)
[2020-09-19] MEDS: LACTULOSE SYRUP 20 GM/30 ML UDC PO SCH (08:59)
[2020-09-19] MEDS: TAMSULOSIN HCL 0.4 MG CAP PO SCH (09:01)
[2020-09-19] MEDS: ZINC SULFATE 220 MG CAPSULE PO SCH (09:01)
[2020-09-19] MEDS: CHOLECALCIFEROL 1,000 UNITS 25 MCG TAB PO SCH (09:01)
[2020-09-19] MEDS: lamoTRIgine 100 MG TAB PO SCH (09:01)
[2020-09-19] MEDS: DOCUSATE SODIUM 100 MG CAP PO SCH ×2 (09:01→22:17)
[2020-09-19] MEDS: cephALEXin 500 MG CAP PO SCH ×4 (09:01→22:15)
[2020-09-19] MEDS: PANTOprazole 40 MG TAB PO SCH ×2 (09:01→22:17)
[2020-09-19] MEDS: FUROSEMIDE 40 MG in SYRINGE 0 ML IV SCH ×2 (09:02→16:31)
[2020-09-19] MEDS: ASCORBIC ACID 500 MG TAB PO SCH (09:03)
[2020-09-19] MEDS: CALCIUM CARBONATE 1250MG TAB PO SCH (09:03)
[2020-09-19] MEDS: LORATADINE 10 MG TAB PO SCH (09:03)
[2020-09-19] MEDS: CALCITRIOL 0.25 MCG CAPSULE PO SCH (09:03)
[2020-09-19] MEDS: CYANOCOBALAMIN 500 MCG TABLET (VITAMIN B-12) PO SCH (09:03)
[2020-09-19] MEDS: OMEGA-3 (PURIFIED FISH OIL) 1 GM CAP PO SCH (09:03)
[2020-09-19] MEDS: CEROVITE ADV FORMULA TAB PO SCH (09:03)
[2020-09-19] MEDS: FINASTERIDE 5 MG TAB PO SCH (09:04)
[2020-09-19] MEDS: ASPIRIN 81 MG ECTAB PO SCH (09:04)
[2020-09-19] MEDS: allopurinoL 100 MG TAB PO SCH (09:04)
[2020-09-19] MEDS: rOPINIRole HCL 0.25 MG TABLET PO SCH ×3 (09:05→22:18)
[2020-09-19] MEDS: DORZOLAMIDE HCL 2% OPH SOLN 10 ML BTL OPB SCH ×3 (09:05→22:15)
[2020-09-19] MEDS: UMECLIDINIUM BROMIDE 62.5MCG/BLISTER 7 PUFFS/INHALER INH SCH (09:06)
--- NOTE | 2020-09-19 09:34 | Nephrology Progress Note ---
Date of Service September 19, 2020 Assessment & Plan Admission and Anticipated Discharge Date Admission Date: September 17, 2020 Subjective had some SOB overnight. Made about 2.5 liter urine. PHYSICAL EXAMINATION: GENERAL: Morbid obese white male. HEENT: Mucous membrane is moist. NECK: Supple. Cannot assess JVD because of obesity. CHEST: Bilateral decreased breath sounds. Basal crackles heard. CVS: S1 and S2 irregular. Soft systolic murmur heard. ABDOMEN: Morbidly obese. EXTREMITIES: Shows trace to 1+ edema with lot of signs of venous stasis and recent edema. NEUROLOGIC: He is awake and alert, but very somnolent and hard to take history, moving all 4 extremities. No focal deficit noted. LABORATORY TEST: Creat and na both slightly better ASSESSMENT AND PLAN: A 75-year-old male with significant cardiac history in the recent past requiring multiple hospitalizations now admitted with new onset atrial fibrillation. He also has acute kidney injury as well as hyponatremia, for which I have been consulted. 1. Acute kidney injury, this is multifactorial. --too many new meds all at once with Celebrex on board. His diuretics should be more simpler and I would strongly recommend to use loop diuretics ( even higher dose if needed) only in his case given hyponatremia. Stop metolazone, stop Aldactone. Restart Lasix 40 IV b.i.d. had about 2.5 liter urine so should be fine for now. Given the echocardiogram findings, we will also do a urine electrophoresis, as well as serum electrophoresis to evaluate for amyloidosis and myeloma. 2. Hyponatremia. This is related with hypervolemic hyponatremia in the setting of congestive heart failure as well as multiple medications, which are known to cause hyponatremia ( janeth metolazone and some extent Aldacxtone) . Hyponatremia is rarely caused by loop diuretic but is very likely to be caused by metolazone and to some extent spironolactone. Given this stop metolazone. Stop Aldactone. Restart IV Lasix. Maintain fluid restriction of 1.5 liters per day. Low-salt diet of 2 grams per day. Results & Data ([facility]) Vital Signs (Past 12 Hours) Vital Signs Temp Pulse Pulse Resp BP Pulse Ox 09/19/20 07:06 36.6 C 59 L 17 114/62 94 09/19/20 07:03 57 L 17 93 09/19/20 03:35 36.4 C L 58 L 20 114/62 94 09/19/20 00:48 90 18 93 09/19/20 00:21 70 09/18/20 23:15 36.7 C 69 18 117/63 92
[2020-09-19] MEDS ORDERED: POTASSIUM CHLORIDE CRTAB 20 MEQ TABCR PO ONE (10:30)
[2020-09-19] MEDS: DOXYCYCLINE HYCLATE 100 MG CAP PO SCH ×2 (13:10→19:33)
[2020-09-19] MEDS: WARFARIN SOD 5 MG TAB PO SCH (16:30)
--- NOTE | 2020-09-19 18:02 | Hospitalist Progress Note ---
Date of Service September 19, 2020 Assessment & Plan (1) Atrial fibrillation, new onset: (2) Elevated troponin: (3) Left-sided chest pain: (4) CAD (coronary artery disease): (5) Acute on chronic heart failure with preserved ejection fraction (HFpEF): (6) LBBB (left bundle branch block): (7) JS (acute kidney injury): (8) ELHAM on CPAP: (9) Bilateral lower leg cellulitis: Plan: Patient is a 75 yr male with H/O CAD, chronic LBBB, history of HFrEF but EF now recovered, HTN, HLD, ELHAM on CPAP, morbid obesity, pulmonary hypertension, bipolar, GERD, RLS, POAG who presents to ED secondary to chest pain. New onset atrial fibrillation Elevated troponin in setting of Afib, JS H/O CAD, LBBB Normal TSH Continue metoprolol On IV heparin for anticoagulation Appreciate cardiology input Continue Coumadin Monitor INR:1.1 today Acute on Chronic HFpEF Held Oral diuretics --ECHO: Severe concentric LVH along with speckling pattern of the myocardium highly suggestive of amyloidosis. EF 50 to 55%. Abnormal septal wall motion consistent with left bundle branch block pattern. Grade 3 diastolic dysfunction consistent with restrictive physiology. Mild mitral regurgitation. Moderate left atrial enlargement. Continue IV Lasix Monitor I's and O's, daily weight Appreciate Cardiology Input Continue fluid restriction, low-sodium diet Suspected amyloidosis ECHO as above Immunofixation serum, urine electrophoresis pending Acute kidney injury Likely multifactorial Celebrex discontinued Hold metaxalone, torsemide, spironolactone Avoid nephrotoxic agents as able Appreciate nephrology input Monitor renal function Cr:1.7>1.6 Hyponatremia Likely multifactorial--volume overload, medications: Methadone, spironolactone Continue fluid restriction Monitor sodium levels Sodium:127>130 Bilateral lower extremity cellulitis Was seen and evaluated by infectious disease during recent hospitalization treated with IV Rocephin On Keflex, added doxy Normal procalcitonin B/L lower ext edema and discoloration concern for PVD/PAD -BONNIE:Bilateral ankle brachial indices within normal limits. -Venous Doppler:No DVT within the right or left lower extremity. Intertrigo place on nystatin/triamcinolone consult wound nurse ELHAM on CPAP CPAP at HS COPD no acute exacerbation continue home inhalers DVT Px: IV Heparin, Coumadin Code Status Full Code Admission and Anticipated Discharge Date Admission Date: September 17, 2020 Subjective Patient is seen and examined at bedside Sleepy during my encounter Refused CPAP overnight Dyspnea better Discussed with nephrology Review of Systems Review of Systems: All systems reviewed & are unremarkable except as noted in Subjective Physical Exam Physical Exam: Physical Exam: Vitals signs as noted above General Appearance:Moderately built and nourished, no apparent distress Head: normocephalic, Atraumatic Eyes: normal inspection, EOMI Neck: supple, Trachea midline Respiratory/Chest: Decreased breath sounds, CTA, No accessory muscle use Cardiovascular: Irregularly irregular, No murmur Abdomen/GI:Soft, Non tender, distended, Bowel sounds present Extremities/Musculoskeletal:normal inspection, B/L LE edema, +Rash Neurologic/Psych:AAOX3, grossly no focal neurological deficits Skin: normal color, warm Results & Data Results & Data ([facility]) Vital Signs (Past 12 Hours) Vital Signs Temp Pulse Pulse Resp BP BP Pulse Ox 09/19/20 16:14 36.7 C 62 17 108/44 L 95 09/19/20 15:04 68 17 98 09/19/20 15:00 72 09/19/20 12:23 36.5 C 71 18 112/60 97 09/19/20 09:00 61 09/19/20 07:06 36.6 C 59 L 17 114/62 94 09/19/20 07:03 57 L 17 93 Laboratory Results Short CBC 09/19/20 Range/Units 05:36 WBC 13.63 H (4.8-10.8) K/uL Hgb 13.0 L (14.0-18.0) g/dL Hct 37.2 L (42-52) % Plt Count 159 (130-400) K/uL BMP 09/19/20 05:36 Sodium 130 L Potassium 3.4 L Chloride 92 L Carbon Dioxide 28 BUN 49 H Creatinine 1.60 H Glucose 137 H Calcium 9.0 Urine 09/18/20 Range/Units 17:49 Urine Color Yellow Urine Appearance Clear (Clear) Urine pH 7.5 (4.5-7.5) Ur Specific [place] 1.009 (1.000-1.030) Urine Protein Negative (Negative) Urine Glucose (UA) Negative (Negative)
[2020-09-19] MEDS: ACETAMINOPHEN 325 MG TAB PO PRN (19:32)
[2020-09-19] MEDS: GABAPENTIN 300 MG CAP PO SCH (22:16)
[2020-09-19] MEDS: POTASSIUM CHLORIDE 10 MEQ TABCR PO SCH (22:16)
[2020-09-19] MEDS: ATORVASTATIN 10 MG TAB PO SCH (22:17)
[2020-09-19] MEDS: METOPROLOL SUCC 25MG EXT REL TAB PO SCH (22:18)
[2020-09-19] MEDS: AMITRIPTYLINE HCL 10 MG TAB PO SCH (22:18)
[2020-09-20] MEDS: HEPARIN SODIUM/DEXTROSE 25,000 UNITS/500 ML BAG IV SCH ×4 (00:17→21:54)
[2020-09-20] MEDS: ACETAMINOPHEN 325 MG TAB PO PRN ×2 (00:34→15:57)
[2020-09-20 04:38] LABS: Hematocrit (blood only) 37.3 % (42-52); Hemoglobin 12.8 g/dL (14.0-18.0); Mean Corpuscular Hemoglobin 30.1 pg (25-34); Mean Corpuscular Hgb Conc 34.3 g/dL (32-36); Mean Corpuscular Volume 87.8 fL (80-100); Mean Platelet Volume 9.5 fL (7.4-10.4); Platelet Count 131 K/uL (130-400); RDW Standard Deviation 51.2 fL (36.4-46.3); Red Blood Count 4.25 M/uL (4.7-6.1); White Blood Count 13.84 K/uL (4.8-10.8)
[2020-09-20 04:56] LABS: Calcium 9.1 mg/dl (8.5-10.1); Creatinine Clr Calc Pharmacy 71.9 ml/min; Est GFR (African American) 58.7 ml/min; Est GFR (Non-African American) 50.6 ml/min; Potassium 3.8 mmol/L (3.5-5.1)
[2020-09-20 05:06] LABS: INR 1.1 (0.9-1.1); Partial Thromboplastin Ratio 2.4; Prothrombin Time 11.4 Seconds (9.0-12.0)
[2020-09-20] MEDS: DOXYCYCLINE HYCLATE 100 MG CAP PO SCH ×2 (07:06→18:25)
[2020-09-20] MEDS: Albuterol HFA 8 GM Inhaler (Combivent Respimat P&T Subs) INH SCH ×4 (07:21→20:17)
[2020-09-20] MEDS: Ipratropium HFA Inhaler (Combivent Respimat P&T Subs) INH SCH ×4 (07:21→20:17)
--- NOTE | 2020-09-20 07:26 | Cardiology Progress Note ---
Date of Service September 20, 2020 Assessment & Plan (1) Atrial fibrillation, new onset: Plan: Asymptomatic. Ventricular rates well controlled. [id number] (Age, CHF, HTN, PVD). Currently maintained on IV heparin. 1. Continue IV heparin till INR therapeutic with Coumadin, goal INR between 2-3. (INR today 1.1- unchanged from 8/12). 5 mg Coumadin scheduled for this evening. 2. Continue metoprolol succinate 25 mg daily (2) Chronic heart failure with preserved ejection fraction (HFpEF): Plan: Nephrology on board given his kidney function. Patient appears mildly hypervolemic on exam, lower extremity edema is improving. SOB improving 1. Continue Lasix 40 mg BID, Continue to trend BMP. 2. Maintain fluid restriction of 1.5 liters per day. Low-salt diet of 2 grams per day, Strict I&O. (3) Abnormal echocardiogram: Plan: Echocardiogram suggestive for cardiac amyloidosis - discussed with patient regarding the diagnosis of possible Amyloid, patient is agreeable to further testing. 1. Recommend pathology referral for fat pad biopsy 2. Urine electrophoresis, as well as serum electrophoresis to evaluate for amyloidosis and myeloma- per nephrology, pending results (4) Elevated troponin: Plan: Mildly elevated troponin likely in the setting of new onset atrial fibrillation in combination with JS. (0.054, 0.063). Was elevated to 0.[address] [facility] on admission Can consider outpatient nuclear stress test following discharge. (5) LBBB (left bundle branch block): Plan: Chronic. (6) Bilateral lower leg cellulitis: Plan: Legs Eduardo/purple/cyanotic. Pulses intact. No DVT within the right or left lower extremity. Bilateral ankle brachial indices within normal limits. Will refer to primary hospitalist team for bilateral lower extremity cellulitis and antibiotic management. (7) ELHAM on CPAP: Plan: Encourage CPAP use. Admission and Anticipated Discharge Date Admission Date: September 17, 2020 Supervising Physician Co-Signing Physician Notes Patient seen and examined with BISHOP Ignacio. Agree with findings and assessment as above. Patient states he is feeling well today Does not appear as short of breath as previously.. Nursing reports patient wore his CPAP therapy last night and feels much better today. Still examines is volume overloaded we'll continue to diuresis. Subjective Upon entrance in to the room patient sitting up in chair at side of bed. No acute distress. Utalized CPAP over night- improvement in shortness of breath. Notes "feeling better this morning". Talking without dyspnea this am. Tolerating IV lasix, urinating adequately. No chest pain. No palpitations, dizziness, or syncope. Ongoing BL lower extremities eduardo/BL feet dusky/purple, blanchable- nonpainful, denies any numbness or tingling. Pulses palpable. quality assurance monitor reviewed: afib with PVCs, 60-80s bpm. Put out about 500 mL over night. Weight today is 142.0 kg Past medical history: -Paroxysmal atrial fibrillation, diagnosed 09/17/2020, [id number] (Age, CHF, HTN, PVD) -Coronary artery disease, unknown specifics -Chronic left bundle branch block -Hypertension -CHF, history of reduced systolic function-EF has since recovered. Known diastolic dysfunction. -GERD -Obesity with ELHAM, on CPAP -Bipolar -Dyslipidemia -Pulmonary hypertension Review of Systems Review of Systems: All systems reviewed & are unremarkable except as noted in HPI & below Physical Exam Physical Exam: General: No acute distress. A+Ox3. HEENT: Normocephalic. Atraumatic. Conjunctiva and sclera clear. NECK: No carotid bruits. No JVD. Carotid upstrokes are brisk. Heart:Regular rate, irregular irregular rhythm. Lungs: Diminished lung sounds, no wheezing or rales noted. Abdomen: Normal bowel sounds. Taut/obese. Nontender. No masses or organomegaly. No abdominal bruits. Extremities: Trace bilateral pedal edema, trace edema over shins. Discoloration noted on bilateral lower extremities per HPI, areas marked with marker, improving. Pulses: Pulses intact NEURO: No focal deficits. PSYCH: Normal. Results & Data ([facility]) Vital Signs (Past 12 Hours) Vital Signs Temp Pulse Pulse Resp BP BP Pulse Ox 09/20/20 07:22 75 16 91 09/20/20 03:15 35.9 C L 54 L 18 120/70 96 09/20/20 02:45 84 18 90 09/20/20 00:43 77 09/19/20 23:22 36.8 C 79 18 120/65 98 09/19/20 22:00 91 H 16 92 Laboratory Results 09/20/20 09/20/20 09/20/20 Range/Units 04:15 04:15 04:15 WBC 13.84 H (4.8-10.8) K/uL RBC 4.25 L (4.7-6.1) M/uL Hgb 12.8 L (14.0-18.0) g/dL Hct 37.3 L (42-52) % MCV 87.8 (80-100) fL MCH 30.1 (25-34) pg MCHC 34.3 (32-36) g/dL RDW Std Deviation 51.2 H (36.4-46.3) fL RDW Coeff of Rohit 16.0 H (11.5-14.5) % Plt Count 131 (130-400) K/uL MPV 9.5 (7.4-10.4) fL PT 11.4 (9.0-12.0) Seconds INR 1.1 (0.9-1.1) APTT 62.0 H* (21.0-31.0) Seconds PTT Ratio 2.4 Sodium 128 L (136-145) mmol/L Potassium 3.8 (3.5-5.1) mmol/L Chloride 94 L (98-107) mmol/L Carbon Dioxide 28 (21-32) mmol/L Anion Gap 6.0 (3-11) BUN 51 H (7-18) mg/dl Creatinine 1.35 (0.6-1.4) mg/dl Est Cr Clr Drug Dosing 71.9 ml/min Est GFR ( Amer) 58.7 ml/min Est GFR (Non-Af Amer) 50.6 ml/min BUN/Creatinine Ratio 38.0 H (10-20) Glucose 133 H (70-99) mg/dl Calcium 9.1 (8.5-10.1) mg/dl Magnesium 2.0 (1.8-2.4) mg/dl
[2020-09-20] MEDS: UMECLIDINIUM BROMIDE 62.5MCG/BLISTER 7 PUFFS/INHALER INH SCH (08:18)
[2020-09-20] MEDS: rOPINIRole HCL 0.25 MG TABLET PO SCH ×3 (08:19→21:52)
[2020-09-20] MEDS: LACTULOSE SYRUP 20 GM/30 ML UDC PO SCH (08:19)
[2020-09-20] MEDS: CALCITRIOL 0.25 MCG CAPSULE PO SCH (08:19)
[2020-09-20] MEDS: CALCIUM CARBONATE 1250MG TAB PO SCH (08:20)
[2020-09-20] MEDS: ASCORBIC ACID 500 MG TAB PO SCH (08:20)
[2020-09-20] MEDS: lamoTRIgine 100 MG TAB PO SCH (08:20)
[2020-09-20] MEDS: allopurinoL 100 MG TAB PO SCH (08:21)
[2020-09-20] MEDS: NYSTATIN/TRIAMCIN CR 15 GM TUBE EXT SCH ×2 (08:21→21:51)
[2020-09-20] MEDS: CEROVITE ADV FORMULA TAB PO SCH (08:22)
[2020-09-20] MEDS: CYANOCOBALAMIN 500 MCG TABLET (VITAMIN B-12) PO SCH (08:22)
[2020-09-20] MEDS: FUROSEMIDE 40 MG in SYRINGE 0 ML IV SCH (08:22)
[2020-09-20] MEDS: cephALEXin 500 MG CAP PO SCH ×4 (08:22→21:52)
[2020-09-20] MEDS: ZINC SULFATE 220 MG CAPSULE PO SCH (08:22)
[2020-09-20] MEDS: ASPIRIN 81 MG ECTAB PO SCH (08:22)
[2020-09-20] MEDS: PANTOprazole 40 MG TAB PO SCH ×2 (08:23→21:53)
[2020-09-20] MEDS: TAMSULOSIN HCL 0.4 MG CAP PO SCH (08:23)
[2020-09-20] MEDS: LORATADINE 10 MG TAB PO SCH (08:23)
[2020-09-20] MEDS: DOCUSATE SODIUM 100 MG CAP PO SCH ×2 (08:23→21:52)
[2020-09-20] MEDS: CHOLECALCIFEROL 1,000 UNITS 25 MCG TAB PO SCH (08:23)
[2020-09-20] MEDS: POTASSIUM CHLORIDE 10 MEQ TABCR PO SCH ×2 (08:24→21:52)
[2020-09-20] MEDS: DORZOLAMIDE HCL 2% OPH SOLN 10 ML BTL OPB SCH ×3 (08:25→21:50)
[2020-09-20] MEDS: OMEGA-3 (PURIFIED FISH OIL) 1 GM CAP PO SCH (08:25)
[2020-09-20] MEDS: FINASTERIDE 5 MG TAB PO SCH (08:26)
--- NOTE | 2020-09-20 09:19 | Nephrology Progress Note ---
Date of Service September 20, 2020 Assessment & Plan Admission and Anticipated Discharge Date Admission Date: September 17, 2020 Subjective has some SOB overnight. Made about 2.5 liter urine. PHYSICAL EXAMINATION: GENERAL: Morbid obese white male. HEENT: Mucous membrane is moist. NECK: Supple. Cannot assess JVD because of obesity. CHEST: Bilateral decreased breath sounds. Basal crackles heard. CVS: S1 and S2 irregular. Soft systolic murmur heard. ABDOMEN: Morbidly obese. EXTREMITIES: Shows trace to 1+ edema with lot of signs of venous stasis and recent edema. NEUROLOGIC: He is awake and alert, but very somnolent and hard to take history, moving all 4 extremities. No focal deficit noted. LABORATORY TEST: Creat and na both slightly better ASSESSMENT AND PLAN: A 75-year-old male with significant cardiac history in the recent past requiring multiple hospitalizations now admitted with new onset atrial fibrillation. He also has acute kidney injury as well as hyponatremia, for which I have been consulted. 1. Acute kidney injury, this is multifactorial. --too many new meds all at once with Celebrex on board. His diuretics should be more simpler and I would strongly recommend to use loop diuretics ( even higher dose if needed) only in his case given hyponatremia. Stop metolazone, stop Aldactone. Restart Lasix 40 IV b.i.d. had about 2.5 liter urine so should be fine for now. Given the echocardiogram findings, we will also do a urine electrophoresis, as well as serum electrophoresis to evaluate for amyloidosis and myeloma. 2. Hyponatremia. This is related with hypervolemic hyponatremia in the setting of congestive heart failure as well as multiple medications, which are known to cause hyponatremia ( janeth metolazone and some extent Aldactone) . Hyponatremia is rarely caused by loop diuretic but is very likely to be caused by metolazone and to some extent spironolactone. Given this stop metolazone. Stop Aldactone. Maintain fluid restriction of 1.5 liters per day. Low-salt diet of 2 grams per day. Rec: 1 raise lasix to 60 iv bid. 2 restart lisinopril 5 daily. 3 for now hold metolazone and aldactone Results & Data ([facility]) Vital Signs (Past 12 Hours) Vital Signs Temp Pulse Pulse Resp BP BP Pulse Ox 09/20/20 08:09 36.5 C 74 18 117/73 96 09/20/20 07:22 75 16 91 09/20/20 03:15 35.9 C L 54 L 18 120/70 96 09/20/20 02:45 84 18 90 09/20/20 00:43 77 09/19/20 23:22 36.8 C 79 18 120/65 98 09/19/20 22:00 91 H 16 92
[2020-09-20] MEDS: FUROSEMIDE 60 MG in SYRINGE 0 ML IV SCH ×2 (10:13→15:59)
--- NOTE | 2020-09-20 14:48 | Hospitalist Progress Note ---
Date of Service September 20, 2020 Assessment & Plan (1) Atrial fibrillation, new onset: (2) Elevated troponin: (3) Left-sided chest pain: (4) CAD (coronary artery disease): (5) Acute on chronic heart failure with preserved ejection fraction (HFpEF): (6) LBBB (left bundle branch block): (7) JS (acute kidney injury): (8) ELHAM on CPAP: (9) Bilateral lower leg cellulitis: Plan: Patient is a 75 yr male with H/O CAD, chronic LBBB, history of HFrEF but EF now recovered, HTN, HLD, ELHAM on CPAP, morbid obesity, pulmonary hypertension, bipolar, GERD, RLS, POAG who presents to ED secondary to chest pain. New onset atrial fibrillation Elevated troponin in setting of Afib, JS H/O CAD, LBBB Normal TSH Continue metoprolol On IV heparin for anticoagulation Appreciate cardiology input Continue Coumadin Monitor INR:1.1 today Rate controlled Acute on Chronic HFpEF Held Oral diuretics --ECHO: Severe concentric LVH along with speckling pattern of the myocardium highly suggestive of amyloidosis. EF 50 to 55%. Abnormal septal wall motion consistent with left bundle branch block pattern. Grade 3 diastolic dysfunction consistent with restrictive physiology. Mild mitral regurgitation. Moderate left atrial enlargement. Continue IV Lasix Monitor I's and O's, daily weight Appreciate Cardiology Input Continue fluid restriction, low-sodium diet Increased lasix to 60mg BID Restarted Lisinopril Suspected amyloidosis ECHO as above Immunofixation serum, urine electrophoresis pending FNA for Fat pad biopsy pending Acute kidney injury Likely multifactorial Celebrex discontinued Hold metaxalone, torsemide, spironolactone Avoid nephrotoxic agents as able Appreciate nephrology input Monitor renal function Cr:1.7>1.6>1.35 Hyponatremia Likely multifactorial--volume overload, medications: Methadone, spironolactone Continue fluid restriction Monitor sodium levels Sodium:127>128 Bilateral lower extremity cellulitis Was seen and evaluated by infectious disease during recent hospitalization treated with IV Rocephin On Keflex, added doxy Normal procalcitonin B/L lower ext edema and discoloration concern for PVD/PAD -BONNIE:Bilateral ankle brachial indices within normal limits. -Venous Doppler:No DVT within the right or left lower extremity. Intertrigo place on nystatin/triamcinolone consult wound nurse ELHAM on CPAP CPAP at COPD no acute exacerbation continue home inhalers DVT Px: IV Heparin, Coumadin Code Status Full Code Admission and Anticipated Discharge Date Admission Date: September 17, 2020 Subjective Patient is seen and examined at bedside Doing well this morning Had slipped to floor and landed on knees per RN Denies chest pain, dyspnea, dizziness, nausea, abd pain Review of Systems Review of Systems: All systems reviewed & are unremarkable except as noted in Subjective Physical Exam Physical Exam: Physical Exam: Vitals signs as noted above General Appearance:Moderately built and nourished, no apparent distress Head: normocephalic, Atraumatic Eyes: normal inspection, EOMI Neck: supple, Trachea midline Respiratory/Chest: Decreased breath sounds, CTA, No accessory muscle use Cardiovascular: Irregularly irregular, No murmur Abdomen/GI:Soft, Non tender, distended, Bowel sounds present Extremities/Musculoskeletal:normal inspection, B/L LE edema, +Rash Neurologic/Psych:AAOX3, grossly no focal neurological deficits Skin: normal color, warm Results & Data Results & Data ([facility]) Vital Signs (Past 12 Hours) Vital Signs Temp Pulse Resp BP BP Pulse Ox 09/20/20 12:54 65 20 148/78 H 93 09/20/20 12:10 36.5 C 77 20 113/73 96 09/20/20 11:16 76 16 97 09/20/20 08:09 36.5 C 74 18 117/73 96 09/20/20 07:22 75 16 91 09/20/20 03:15 35.9 C L 54 L 18 120/70 96
[2020-09-20] MEDS: WARFARIN SOD 5 MG TAB PO SCH (15:59)
--- NOTE | 2020-09-20 16:26 | Progress Note ---
Date of Service September 20, 2020 Pathology Note Fine needle aspiration of the abdominal fat pad performed by Bryan Gage without complications at 230 PM on 09/20/2020.
[2020-09-20] MEDS: ATORVASTATIN 10 MG TAB PO SCH (21:52)
[2020-09-20] MEDS: AMITRIPTYLINE HCL 10 MG TAB PO SCH (21:52)
[2020-09-20] MEDS: METOPROLOL SUCC 25MG EXT REL TAB PO SCH (21:53)
[2020-09-20] MEDS: GABAPENTIN 300 MG CAP PO SCH (21:53)
[2020-09-21 06:41] LABS: Hematocrit (blood only) 35.6 % (42-52); Hemoglobin 12.5 g/dL (14.0-18.0); Mean Corpuscular Hemoglobin 30.4 pg (25-34); Mean Corpuscular Hgb Conc 35.1 g/dL (32-36); Mean Corpuscular Volume 86.6 fL (80-100); Mean Platelet Volume 9.4 fL (7.4-10.4); Platelet Count 188 K/uL (130-400); RDW Standard Deviation 50.6 fL (36.4-46.3); Red Blood Count 4.11 M/uL (4.7-6.1); White Blood Count 21.56 K/uL (4.8-10.8)
[2020-09-21 07:15] LABS: INR 1.1 (0.9-1.1); Partial Thromboplastin Ratio 2.3; Prothrombin Time 11.4 Seconds (9.0-12.0)
[2020-09-21] MEDS: Albuterol HFA 8 GM Inhaler (Combivent Respimat P&T Subs) INH SCH ×4 (07:18→19:14)
[2020-09-21] MEDS: Ipratropium HFA Inhaler (Combivent Respimat P&T Subs) INH SCH ×4 (07:28→19:13)
[2020-09-21 07:32] LABS: BUN Creatinine Ratio 33.9 (10-20); Calcium 9.8 mg/dl (8.5-10.1); Creatinine Clr Calc Pharmacy 57.3 ml/min; Est GFR (African American) 45.7 ml/min; Est GFR (Non-African American) 39.4 ml/min; Potassium 4.2 mmol/L (3.5-5.1)
[2020-09-21 07:33] LABS: Partial Thromboplastin Time 61.1 Seconds (21.0-31.0)
[2020-09-21] MEDS: FUROSEMIDE 60 MG in SYRINGE 0 ML IV SCH (08:34)
[2020-09-21] MEDS: rOPINIRole HCL 0.25 MG TABLET PO SCH ×2 (08:35→13:01)
[2020-09-21] MEDS: PANTOprazole 40 MG TAB PO SCH ×2 (08:35→20:10)
[2020-09-21] MEDS: DORZOLAMIDE HCL 2% OPH SOLN 10 ML BTL OPB SCH ×3 (08:36→21:44)
[2020-09-21] MEDS: lamoTRIgine 100 MG TAB PO SCH (08:36)
[2020-09-21] MEDS: cephALEXin 500 MG CAP PO SCH (08:36)
[2020-09-21] MEDS: lisinopril 5 MG TAB PO SCH (08:37)
[2020-09-21] MEDS: CYANOCOBALAMIN 500 MCG TABLET (VITAMIN B-12) PO SCH (08:37)
[2020-09-21] MEDS: TAMSULOSIN HCL 0.4 MG CAP PO SCH (08:37)
[2020-09-21] MEDS: ZINC SULFATE 220 MG CAPSULE PO SCH (08:37)
[2020-09-21] MEDS: ASCORBIC ACID 500 MG TAB PO SCH (08:37)
[2020-09-21] MEDS: CALCIUM CARBONATE 1250MG TAB PO SCH (08:37)
[2020-09-21] MEDS: LORATADINE 10 MG TAB PO SCH (08:38)
[2020-09-21] MEDS: OMEGA-3 (PURIFIED FISH OIL) 1 GM CAP PO SCH (08:38)
[2020-09-21] MEDS: DOXYCYCLINE HYCLATE 100 MG CAP PO SCH (08:38)
[2020-09-21] MEDS: CEROVITE ADV FORMULA TAB PO SCH (08:38)
[2020-09-21] MEDS: allopurinoL 100 MG TAB PO SCH (08:38)
[2020-09-21] MEDS: FINASTERIDE 5 MG TAB PO SCH (08:39)
[2020-09-21] MEDS: CHOLECALCIFEROL 1,000 UNITS 25 MCG TAB PO SCH (08:39)
[2020-09-21] MEDS: NYSTATIN/TRIAMCIN CR 15 GM TUBE EXT SCH ×2 (08:39→20:11)
[2020-09-21] MEDS: LACTULOSE SYRUP 20 GM/30 ML UDC PO SCH (08:39)
[2020-09-21] MEDS: ASPIRIN 81 MG ECTAB PO SCH (08:39)
[2020-09-21] MEDS: UMECLIDINIUM BROMIDE 62.5MCG/BLISTER 7 PUFFS/INHALER INH SCH (08:40)
[2020-09-21] MEDS: POTASSIUM CHLORIDE 10 MEQ TABCR PO SCH (08:42)
[2020-09-21] MEDS: DOCUSATE SODIUM 100 MG CAP PO SCH ×2 (08:42→20:13)
--- NOTE | 2020-09-21 09:57 | XRay Report ---
XR chest 1V portable HISTORY: Shortness of breath. COMPARISON: Chest 09/17/2020. FINDINGS: No pneumothorax. The heart remains moderately enlarged. There is left basilar density/effus ion, unchanged. The right lung is clear. IMPRESSION: No change in the cardiomegaly and left basilar density/effusion. ACT 112: Negative or not required by law. Electronically signed by: Calvin Matthews M.D. 09/21/2020 9:55 AM
--- NOTE | 2020-09-21 11:23 | Nephrology Progress Note ---
Date of Service September 21, 2020 Assessment & Plan (1) Hyponatremia: Plan: 129 on presentation and stable in this range until this morning when he dropped to 125. He started Lasix 60 mg IV twice daily yesterday morning. Intake and output not complete. -complete I/O need reinforced w/ pt -standing wts only daily no bed weight wherever possible > recent slip out of bed noted however -recheck bmp 1400 along w/ serum, urine osms, rd Faviola (2) JS (acute kidney injury): Plan: Baseline creatinine 1.0-1.2 summer 2020 and as recently as early September at [facility] discharge. Presenting creatinine 1.5 on September 17, peak creatinine 1.7 on September 18, nitish 1.4 September 20. 1.7 again today. 60 mg IV twice daily Lasix and lisinopril both started yesterday by our service. -stopped ACEI -recheck 1400 labs -held lasix pending repeat labs, though may well expect these to cont to worsen since he had acei, lasix this am; recheck is mostly for sNa -f/u pending prot/creat, fat pad path report, other amyloidosis studies Admission and Anticipated Discharge Date Admission Date: September 17, 2020 Subjective slipped out of bed to floor yesterday; c/o fatigue, generalized weakness, anuria (has condom cath); no sob, no uncontrolled pain; awaiting path on fat pad bx re amyloid Review of Systems Review of Systems: All systems reviewed & are unremarkable except as noted in Subjective Physical Exam Constitutional: well developed, + obese and + lethargic Eyes: EOM intact bilaterally ENMT: Ears: no external ear abnormality Nose: no external nose abnormality Mouth: + dry oral mucous membranes Neck: no nuchal rigidity Respiratory: normal respiratory effort Auscultation: + diminished lung sounds (janeth L base) and + crackles (R base) Cardiovascular: Rate/Rhythm: regular rate and regular rhythm Extremities: no edema Gastrointestinal (Abdomen): Inspection/Auscultation: + abdomen distended and normal bowel sounds; no abdominal edema Percussion/Palpation: abdomen soft; abdomen nontender Musculoskeletal: Extremities: + abnormal strength (generalized weakness, ? worse LUE) Skin: + erythema (stable/ w-in drawn bounds) Neurologic: russo, fluent speech, no tremor Genitourinary: condom cath in place Results & Data ([facility]) Vital Signs (Past 12 Hours) Vital Signs Temp Pulse Pulse Resp BP Pulse Ox 09/21/20 08:00 89 09/21/20 07:22 76 18 95 09/21/20 07:08 36.7 C 90 20 110/71 97 09/21/20 03:19 36.3 C L 91 H 20 107/67 95 09/21/20 00:00 36.5 C 82 20 114/71 95 Laboratory Results 09/21/20 06:33 09/21/20 06:33
[2020-09-21] MEDS ORDERED: cefTRIAXone SODIUM 1,000 MG in DEXTROSE 5% 50 ML IV SCH (12:00)
[2020-09-21] MEDS: LACTOBACILLUS ACIDOPHILUS 1 GM PACK PO SCH ×2 (13:00→17:28)
--- NOTE | 2020-09-21 13:16 | Cardiology Progress Note ---
Date of Service September 21, 2020 Assessment & Plan (1) Atrial fibrillation, new onset: Plan: Asymptomatic. Ventricular rates well controlled. [id number] (Age, CHF, HTN, PVD). Currently maintained on IV heparin. 1. Continue IV heparin till INR therapeutic with Coumadin, goal INR between 2-3. (INR today 1.1- unchanged from 812). 10 mg Coumadin scheduled for this evening. 2. Continue metoprolol succinate 25 mg daily (2) Chronic heart failure with preserved ejection fraction (HFpEF): Plan: Nephrology on board given his kidney function. Patient appears mildly hypervolemic on exam, lower extremity edema is improving. SOB improving 1. Continue Lasix 40 mg BID, Continue to trend BMP. 2. Maintain fluid restriction of 1.5 liters per day. Low-salt diet of 2 grams per day, Strict I&O. 3. Shortness of breath not improved despite ongoing diuresis, would consider pulmonary referral for further evaluation of shortness of breath. (3) Abnormal echocardiogram: Plan: Echocardiogram suggestive for cardiac amyloidosis - discussed with patient regarding the diagnosis of possible Amyloid, patient is agreeable to further fabrizio ting. 1. Recommend pathology referral for fat pad biopsy 2. Urine electrophoresis, as well as serum electrophoresis to evaluate for amyloidosis and myeloma- per nephrology, pending results (4) Elevated troponin: Plan: Mildly elevated troponin likely in the setting of new onset atrial fibrillation in combination with JS. (0.054, 0.063). Was elevated to 0.[address] [facility] on admission Can consider outpatient nuclear stress test following discharge. (5) LBBB (left bundle branch block): Plan: Chronic. (6) Bilateral lower leg cellulitis: Plan: Legs Eduardo/purple/cyanotic. Pulses intact. No DVT within the right or left lower extremity. Bilateral ankle brachial indices within normal limits. Will refer to primary hospitalist team for bilateral lower extremity cellulitis and antibiotic management. (7) ELHAM on CPAP: Plan: Encourage CPAP use. Admission and Anticipated Discharge Date Admission Date: September 17, 2020 Subjective Patient seen and examined, chart reviewed. States he still feels short of br eath without significant improvement from admission. Was having difficulty urinating and Jennings catheter placed this a.m. Denies chest pain, palpitations, lightheadedness, dizziness or syncope. Telemetry reviewed:Atrial fibrillation rate controlled with underlying left bundle branch block. Review of Systems Review of Systems: All systems reviewed & are unremarkable except as noted in HPI & below Physical Exam Physical Exam: General: Awake, alert and oriented x 3. No acute distress. HEENT: Normocephalic, atraumatic. Pupils equal, round and reactive to light and accommodation. Extraocular muscles are intact. Anicteric sclera. Moist mucous membranes. Neck: No JVD. No bruit. Cardiovascular: irregularly irregular, unable to appreciate murmur, rub or gallop. Pulmonary: Poor air movement diffusely, left basilar crackles, otherwise, clear Abdomen: Bowel sounds x 4, soft. No rebound, guarding or tenderness. No organomegaly. Extremities: No clubbing, cyanosis or edema. +2 pedal pulses bilaterally. Skin: Warm and dry. Results & Data ([facility]) Vital Signs (Past 12 Hours) Vital Signs Temp Pulse Pulse Resp BP Pulse Ox 09/21/20 11:26 79 18 97 09/21/20 11:21 36.5 C 85 17 101/63 94 09/21/20 08:00 89 09/21/20 07:22 76 18 95 09/21/20 07:08 36.7 C 90 20 110/71 97 09/21/20 03:19 36.3 C L 91 H 20 107/67 95
[2020-09-21 14:18] LABS: BUN Creatinine Ratio 25.5 (10-20); Calcium 9.5 mg/dl (8.5-10.1); Creatinine Clr Calc Pharmacy 37.2 ml/min; Est GFR (African American) 27.1 ml/min; Est GFR (Non-African American) 23.4 ml/min; Potassium 4.4 mmol/L (3.5-5.1)
[2020-09-21 14:49] LABS: Appearance Urine Clear (Clear); Bilirubin Urine Negative (Negative); Blood Urine Negative (Negative); Color Urine Yellow; Glucose Urine UA Negative (Negative); Ketones Urine Negative (Negative); Leukocyte Esterase Urine Negative (Negative); Nitrite Urine Negative (Negative); Protein Urine Negative (Negative); Specific Gravity Urine 1.011 (1.000-1.030); Urobilinogen Urine Negative (Negative)
[2020-09-21] MEDS ORDERED: SODIUM CHLORIDE 0.9% 1000ML 250 ML IV ONE ×3 (15:43→16:06)
--- NOTE | 2020-09-21 15:59 | Hospitalist Progress Note ---
Date of Service September 21, 2020 Assessment & Plan (1) Atrial fibrillation, new onset: (2) Elevated troponin: (3) Left-sided chest pain: (4) CAD (coronary artery disease): (5) Acute on chronic heart failure with preserved ejection fraction (HFpEF): (6) LBBB (left bundle branch block): (7) JS (acute kidney injury): (8) ELHAM on CPAP: (9) Bilateral lower leg cellulitis: Plan: Patient is a 75 yr male with H/O CAD, chronic LBBB, history of HFrEF but EF now recovered, HTN, HLD, ELHAM on CPAP, morbid obesity, pulmonary hypertension, bipolar, GERD, RLS, POAG who presents to ED secondary to chest pain. New onset atrial fibrillation Elevated troponin in setting of Afib, JS H/O CAD, LBBB Normal TSH Continue metoprolol On IV heparin for anticoagulation Appreciate cardiology input Continue Coumadin Monitor INR:1.1 today Rate controlled Adjust Coumadin dose as needed Acute on Chronic HFpEF Held Oral diuretics --ECHO: Severe concentric LVH along with speckling pattern of the myocardium highly suggestive of amyloidosis. EF 50 to 55%. Abnormal septal wall motion consistent with left bundle branch block pattern. Grade 3 diastolic dysfunction consistent with restrictive physiology. Mild mitral regurgitation. Moderate left atrial enlargement. Monitor I's and O's, daily weight Appreciate Cardiology Input Continue low-sodium diet IV lasix held due to JS, hypotension Hold Lisinopril due to hypotension Altered Mental Status DD: Metabolic Encephalopathy Hypotension Abdominal distention CT head/Abdomen pending ABG, ABG pending IV fluids as needed Low threshold to transfer to ICU Suspected amyloidosis ECHO as above Immunofixation serum:Normal pattern. No monoclonal proteins detected Urine electrophoresis pending FNA for Fat pad biopsy pending Acute kidney injury Likely multifactorial Celebrex discontinued Hold metaxalone, torsemide, spironolactone Avoid nephrotoxic agents as able Appreciate nephrology input Monitor renal function Cr:1.7>1.6>1.35>2.56 Hyponatremia Likely multifactorial--volume overload, medications: Methadone, spironolactone Continue fluid restriction Monitor sodium levels Sodium:127>128>125 Bilateral lower extremity cellulitis Was seen and evaluated by infectious disease during recent hospitalization treated with IV Rocephin On Keflex>>Changed to Rocephin given worsening leukocytosis Continue doxycycline Normal procalcitonin B/L lower ext edema and discoloration concern for PVD/PAD -BONNIE:Bilateral ankle brachial indices within normal limits. -Venous Doppler:No DVT within the right or left lower extremity. Intertrigo place on nystatin/triamcinolone consult wound nurse ELHAM on CPAP CPAP at HS COPD no acute exacerbation continue home inhalers DVT Px: IV Heparin, Coumadin--hold until CT scan results Code Status Full Code Admission and Anticipated Discharge Date Admission Date: September 17, 2020 Subjective Patient is seen and examined at bedside States feeling well this morning Reported constipation, poorly slept overnight Mental status changed this afternoon..oriented X2 BP on lower side Denies chest pain, abd pain Had an Episode of vomiting while getting CT scan today Discussed with family at bedside Review of Systems Review of Systems: All systems reviewed & are unremarkable except as noted in Subjective Physical Exam Physical Exam: Physical Exam: Vitals signs as noted above General Appearance:Moderately built and nourished, no apparent distress Head: normocephalic, Atraumatic Eyes: normal inspection, EOMI Neck: supple, Trachea midline Respiratory/Chest: Decreased breath sounds, CTA, No accessory muscle use Cardiovascular: Irregularly irregular, No murmur Abdomen/GI:Soft, Non tender, distended, Bowel sounds present Extremities/Musculoskeletal:normal inspection, B/L LE edema improving, +Rash Neurologic/Psych:AAOX3, grossly no focal neurological deficits Skin: normal color, warm Results & Data Results & Data ([facility]) Vital Signs (Past 12 Hours) Vital Signs Temp Pulse Pulse Resp BP Pulse Ox 09/21/20 15:37 36.6 C 71 17 89/55 L 95 09/21/20 15:31 69 20 97 09/21/20 11:26 79 18 97 09/21/20 11:21 36.5 C 85 17 101/63 94 09/21/20 08:00 89 09/21/20 07:22 76 18 95 09/21/20 07:08 36.7 C 90 20 110/71 97 Laboratory Results Short CBC 09/21/20 Range/Units 06:33 WBC 21.56 H (4.8-10.8) K/uL Hgb 12.5 L (14.0-18.0) g/dL Hct 35.6 L (42-52) % Plt Count 188 (130-400) K/uL BMP 09/21/20 09/21/20 06:33 13:49 Sodium 125 L 125 L Potassium 4.2 4.4 Chloride 91 L 88 L Carbon Dioxide 23 24 BUN 56 H 65 H Creatinine 1.66 H D 2.56 H D Glucose 186 H 211 H Calcium 9.8 9.5 Urine 09/21/20 Range/Units 14:30 Urine Color Yellow Urine Appearance Clear (Clear) Urine pH 7.0 (4.5-7.5) Ur Specific [place] 1.011 (1.000-1.030) Urine Protein Negative (Negative) Urine Glucose (UA) Negative (Negative)
[2020-09-21] MEDS ORDERED: WARFARIN SOD 7.5 MG TAB PO SCH (16:00)
[2020-09-21] MEDS ORDERED: WARFARIN SOD 10 MG TAB PO SCH (16:00)
[2020-09-21 16:03] LABS: Allen Test Pos (Pos); Base Excess ABG -1.3 mEq/L (-9-1.8); HCO3 ABG 21 mmol/L (19-24); Oxygen Saturation ABG 97.3 % (90-95); PCO2 ABG 28 mmHg (35-46); PO2 ABG 86 mmHg (80-95); pH ABG 7.49 (7.35-7.45)
[2020-09-21] MEDS ORDERED: SODIUM CHLORIDE 0.9% 1000ML 500 ML IV ONE (16:19)
[2020-09-21 16:32] LABS: Hematocrit (blood only) 34.2 % (42-52); Hemoglobin 11.9 g/dL (14.0-18.0)
--- NOTE | 2020-09-21 16:53 | Communication Note ---
Date of Service: September 21, 2020 Blood pressure remains in 70s after 3 250ml boluses and currently getting 500ml NSS. Discussed with Infection Prevention Coordinator infection prevention coordinator. Will transfer to ICU for closer m onitoring. Will update family.
--- NOTE | 2020-09-21 17:19 | Critical Care Consultation ---
Date of Consultation September 21, 2020 Assessment & Plan (1) Chronic heart failure with preserved ejection fraction (HFpEF): (2) Lactic acidosis: (3) JS (acute kidney injury): Impression: 75-year-old male admitted 09/17 with chest pain. Patient's had multiple recent admissions at [facility] for heart failure acute kidney injury pneumonia and cellulitis he had palpitations at the rehab center which prompted return to the emergency room and he was admitted with Eb leiva. He is transferred to the ICU today with hypotension, lactic acidosis, abdominal distention, nausea vomiting, and worsening renal function and altered mental status.. He has undergone a biopsy of the abdominal fat pad to exclude amyloidosis. Recommendations: 1. Neurologic: Encephalopathy: Suspect metabolic with combinations of acute renal failure and hypoperfusion. His exam is nonfocal. Defer imaging at this point time. Will check ammonia level. Patient is on several medications which could could potentially cause altered mental status. These will be discontinued in light of the patient's worsening mental status 2. Cardiovascular: Hypotension: Cardiology has been following the patient. Central line was placed and will initiate on norepinephrine to maintain systolic blood pressures of around 65. Hold additional diuresis. I attempted to perform an IJ however on ultrasound, the veins appeared completely collapsed and were not readily visualized. The arteriotomies were small and identified therefore we performed a femoral catheterization. Unfortunately this would not allow us to measure CVP or filling pressures. Suspect the patient may have some component of sepsis given his elevated white blood cell count and elevated lactate. Intra-abdominal processes are possible. Will repeat chest x-ray as well. See ID below 3. Pulmonary: History of sleep disordered breathing: Continue CPAP at night. Wean oxygen as tolerated. Blood gas demonstrates a respiratory alkalosis likely secondary to the patient's metabolic abnormality 4. GI: Check CMP. CT abdomen pelvis without contrast 5. Renal: Worsening renal function. We will repeat chemistry panels. May need to discuss with nephrology. Hopefully kidney perfusion may improve with restorationist of mean arterial pressure 6. ID: Presumed septic shock: Etiologies would include intra-abdominal process including cholecystitis, a calculus cholecystitis, pancreatitis, bowel obstruction, ischemic bowel etc. Await imaging of the abdomen. His exam is not particularly concerning currently so we will hold off on surgical consult. We will place empirically on Zosyn for now. Cultures have been ordered. Procalcitonin is pending. 7. Heme-onc: Patient has mild anemia but no indication for transfusion. I do not see a clear source of bleeding. Leukocytosis likely reactive to infectious/inflammatory process 8. Endocrine: Glycemic control per ICU protocol. 9. Additional recommendations and the plan will be based on results of imaging studies and laboratory studies. The patient is critically ill at this point t eunice. A total of 90 minutes exclusive of procedures was spent in evaluation and stabilization of this patient. History of Present Illness Attending Physician: Julio Hsu MD History of Present Illness Asked by hospitalists to see patient due to concern about clinical decline. History is obtained from discussion with the hospitalist review electronic medical record and interview the patient at bedside. History from the patient is somewhat unreliable due to altered mental status. Patient is a 75-year-old female with a complicated medical history. Has been in and out of [facility] on several occasions with what sounds like diastolic dysfunction heart failure complicated by kidney failure. He was at [facility] and was brought to [facility] due to A. fib with RVR. He has been admitted to the hospitalist service for about for 5 days and seen by nephrology. They have been working on diuresis. There was a suspicion for amyloid and the patient underwent fat pad biopsy as his amino pheresis studies were equivocal. Those results are currently pending. Today the patient was noted to have altered mental status hypotension and worsening renal function prompting transfer to the ICU. He also had increasing abdominal distention. He is not complaining of any abdominal pain. A CT scan was ordered but the patient vomited and the imaging study has not been able to be completed. His lactate was also elevated. He had had a fall a few days previously. His only complaint currently is some mild back pain. Allergies Allergy/AdvReac Type Severity Reaction Status Date / Time benzalkonium chloride Allergy Unknown Unverified 09/17/20 15:55 brimonidine Allergy Unknown Unverified 09/17/20 15:55 inositol Allergy Unknown Unverified 09/17/20 15:55 niacin Allergy Unknown Unverified 09/17/20 15:55 pollen extracts Allergy Unknown Unverified 09/17/20 15:55 timolol Allergy Unknown Unverified 09/17/20 15:55 travoprost Allergy Unknown Unverified 09/17/20 15:55 Home Medications Medication Instructions Recorded Confirmed Type allopurinol 100 mg tablet 200 mg PO DAILY 09/17/20 09/17/20 History amitriptyline 10 mg tablet 10 mg PO HS 09/17/20 09/17/20 History ascorbic acid (vitamin C) 250 mg 500 mg PO DAILY 09/17/20 09/17/20 History tablet aspirin 81 mg tablet,delayed 81 mg PO DAILY 09/17/20 09/17/20 History release (Aspirin Low Dose) atorvastatin 10 mg tablet (Lipitor) 10 mg PO HS 09/17/20 09/17/20 History calcitriol 0.25 mcg capsule 0.25 mcg PO DAILY 09/17/20 09/17/20 History (Rocaltrol) calcium carbonate 500 mg calcium 500 mg PO DAILY 09/17/20 09/17/20 History (1,250 mg) chewable tablet celecoxib 100 mg capsule (Celebrex) 200 mg PO BID 09/17/20 09/17/20 History cephalexin 500 mg capsule 500 mg PO QID 09/17/20 09/17/20 History cholecalciferol (vitamin D3) 25 25 mcg PO DAILY 09/17/20 09/17/20 History mcg (1,000 unit) tablet (Vitamin D3) cyanocobalamin (vitamin B-12) 1,000 mcg PO DAILY 09/17/20 09/17/20 History 1,000 mcg tablet docusate sodium 100 mg capsule 100 mg PO BID 09/17/20 09/17/20 History dorzolamide 2 % eye drops 1 drp OPB TID 09/17/20 09/17/20 History enoxaparin 40 mg/0.4 mL 40 mg SUBCUT DAILY 09/17/20 09/17/20 History subcutaneous syringe (Lovenox) finasteride 5 mg tablet (Proscar) 5 mg PO DAILY 09/17/20 09/17/20 History gabapentin 300 mg capsule 1,500 mg PO HS 09/17/20 09/17/20 History (Neurontin) ipratropium 20 mcg-albuterol 100 1 puff INHALATION Q4H PRN 09/17/20 09/17/20 History mcg/actuation mist for inhalation ipratropium 20 mcg-albuterol 100 1 puff INHALATION QID 09/17/20 09/17/20 History mcg/actuation mist for inhalation (Combivent Respimat) lactulose 10 gram/15 mL oral 20 g PO DAILY 09/17/20 09/17/20 History solution (Enulose) lamotrigine 150 mg tablet 150 mg PO DAILY 09/17/20 09/17/20 History (Lamictal) lisinopril 5 mg tablet (Zestril) 5 mg PO DAILY 09/17/20 09/17/20 History loratadine 10 mg tablet 10 mg PO DAILY 09/17/20 09/17/20 History metolazone 5 mg tablet 5 mg PO DAILY 09/17/20 09/17/20 History metoprolol succinate 25 mg 25 mg PO HS 09/17/20 09/17/20 History tablet,extended release 24 hr (Toprol XL) multivitamin with iron-mineral 1 tab PO DAILY 09/17/20 09/17/20 History omega-3 fatty acids 1,000 mg PO DAILY 09/17/20 09/17/20 History pantoprazole 40 mg tablet,delayed 40 mg PO BID 09/17/20 09/17/20 History release (Protonix) ropinirole 0.5 mg tablet 0.5 mg PO TID 09/17/20 09/17/20 History spironolactone 50 mg tablet 50 mg PO BID 09/17/20 09/17/20 History (Aldactone) tamsulosin 0.4 mg capsule (Flomax) 0.4 mg PO DAILY 09/17/20 09/17/20 History temazepam 15 mg capsule 15 mg PO HS PRN 09/17/20 09/17/20 History torsemide 20 mg tablet 20 mg PO BID 09/17/20 09/17/20 History umeclidinium 62.5 mcg/actuation 1 inh INHALATION DAILY 09/17/20 09/17/20 History blister powder for inhalation zinc sulfate 220 mg capsule 220 mg PO DAILY 09/17/20 09/17/20 History Patient History Medical History 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 BPH (benign prostatic hyperplasia) CAD (coronary artery disease) Chronic heart failure with preserved ejection fraction (HFpEF) COPD (chronic obstructive pulmonary disease) GERD (gastroesophageal reflux disease) Hyperparathyroidism LBBB (left bundle branch block) chronic ELHAM on CPAP POAG (primary open-angle glaucoma) RLS (restless legs syndrome) Surgical History History of cataract extraction History of cholecystectomy History of hip replacement History of knee joint replacement History of laminectomy History of rotator cuff surgery Family History Other Heart disease Social History Smoking Status: Never smoker Second Hand Exposure: Yes; Hx Alcohol Use: No Hx Substance Use: No Preferred Language: Cypriot Communication Ability: Effective Perfumer Required: No Beliefs That Will Affect Care: None marital status: Current Living Situation: Spouse Current Living Situation Comment: Lives with Other Information That Helps Us Care for You: No Feels Safe at Home: Yes Safety Concerns: Feels Safe At This Time Review of Systems Review of Systems: Please refer to the hospitalist notes for full details. No additions or deletions other than as noted in Results & Data Results & Data ([facility]) Vital Signs (Past 12 Hours) Vital Signs Temp Pulse Pulse Resp BP Pulse Ox 09/21/20 15:37 36.6 C 71 17 89/55 L 95 09/21/20 15:31 69 20 97 09/21/20 11:26 79 18 97 09/21/20 11:21 36.5 C 85 17 101/63 94 09/21/20 08:00 89 09/21/20 07:22 76 18 95 09/21/20 07:08 36.7 C 90 20 110/71 97 Laboratory Results Lactate elevated 3.3 Procalcitonin 0.23 Urine awesome 369 Urine sodium 86 Diagnostic Findings Echocardiogram 09/18/2020 showed an EF of 50 to 55% with severe concentric LVH with speckling concerning for amyloid. Grade 3 diastolic dysfunction was noted with mildly reduced RV function. Mild mitral regurgitation noted. Critical Care Results & Data Vital Signs (Past 12 Hours) Vital Signs Temp Pulse Pulse Resp BP Pulse Ox 09/21/20 15:37 36.6 C 71 17 89/55 L 95 09/21/20 15:31 69 20 97 09/21/20 11:26 79 18 97 09/21/20 11:21 36.5 C 85 17 101/63 94 09/21/20 08:00 89 09/21/20 07:22 76 18 95 09/21/20 07:08 36.7 C 90 20 110/71 97 Lab & Micro Results (Past 24 Hours) RBC 4.11 M/uL (4.7-6.1) L 09/21/20 WBC 21.56 K/uL (4.8-10.8) H 09/21/20 Hgb 11.9 g/dL (14.0-18.0) L 09/21/20 Hct 34.2 % (42-52) L 09/21/20 MCV 86.6 fL (80-100) 09/21/20 MCH 30.4 pg (25-34) 09/21/20 MCHC 35.1 g/dL (32-36) 09/21/20 RDW Standard Deviation 50.6 fL (36.4-46.3) H 09/21/20 RDW Coefficient of Variation 16.0 % (11.5-14.5) H 09/21/20 Plt Count 188 K/uL (130-400) 09/21/20 MPV 9.4 fL (7.4-10.4) 09/21/20 Na 125 mmol/L (136-145) L 09/21/20 K 4.4 mmol/L (3.5-5.1) 09/21/20 Cl 88 mmol/L (98-107) L 09/21/20 CO2 24 mmol/L (21-32) 09/21/20 Anion Gap 12.0 (3-11) H 09/21/20 BUN 65 mg/dl (7-18) H 09/21/20 Creatinine 2.56 mg/dl (0.6-1.4) H 09/21/20 Estimated GFR ( Amer) 27.1 ml/min 09/21/20 Estimated GFR (Non-Af Amer) 23.4 ml/min 09/21/20 BUN/Creatinine Ratio 25.5 (10-20) H 09/21/20 Glu 211 mg/dl (70-99) H 09/21/20 Ca 9.5 mg/dl (8.5-10.1) 09/21/20 Calcium Level 9.5 mg/dl (8.5-10.1) 09/21/20 13:49 09/21/20 Prothromb Time International Ratio 1.1 (0.9-1.1) 09/21/20 06:33 09/21/20 Blood Gas Barometric Pressure 736.1 mm/Hg 09/21/20 15:53 09/21/20 Arterial Blood pH 7.49 (7.35-7.45) H 09/21/20 15:53 09/21/20 Arterial Blood Partial Pressure CO2 28 mmHg (35-46) L 09/21/20 15:53 09/21/20 Arterial Blood Partial Pressure O2 86 mmHg (80-95) 09/21/20 15:53 09/21/20 Arterial Blood HCO3 21 mmol/L (19-24) 09/21/20 15:53 09/21/20 Arterial Blood Base Excess -1.3 mEq/L (-9-1.8) 09/21/20 15:53 09/21/20 Arterial Blood Oxygen Saturation 97.3 % (90-95) H 09/21/20 15:53 09/21/20 Blood Gas Oxygen Given 2% 09/21/20 15:53 09/21/20 Surjit Test Pos (Pos) 09/21/20 15:53 09/21/20 Blood Gas Barometric Pressure 736.1 mm/Hg 09/21/20 15:53 09/21/20 Diagnostic Findings (Past 24 Hours) Chest X-Ray 09/21/20 09:28 XR chest 1V portable HISTORY: Shortness of breath. COMPARISON: Chest 09/17/2020. FINDINGS: No pneumothorax. The heart remains moderately enlarged. There is left basilar density/effusion, unchanged. The right lung is clear. IMPRESSION: No change in the cardiomegaly and left basilar density/effusion. ACT 112: Negative or not required by law. Electronically signed by: Calvin Matthews M.D. 09/21/2020 9:55 AM I & O Totals 24 Hours 09/20/20 09/21/20 09/22/20 06:59 06:59 06:59 Intake Total 1970.00 / 1970.00 720 / 840 1342.917 / 1342.917 Output Total 452 / 452 600 / 600 1400 / 1400 Balance 1518.00 / 1518.00 120 / 240 -57.083 / -57.083 Cumulative 09/17/20 12:00 thru 09/21/20 15:40 Intake Total 6113.899 Output Total 6052 Balance 61.899 RT Ventilator Mngmt (Last Documented) Ventilator Ordered Settings Respiratory Rate 17 09/21/20 15 :37 Fraction of Inspired Oxygen 09/18/20 19:23 Ventilator - PT Measurements Respiratory Rate 17 Coding Level of Care Code Critical Care ea addt'l 30 min Diagnoses Chronic heart failure with preserved ejection fraction (HFpEF) I50.32 Lactic acidosis E87.2 JS (acute kidney injury) N17.9 Time Spent (min) 90 Comment [id number] and [id number]
[2020-09-21] MEDS ORDERED: STAT IV Infusion **Titration per Protocol STA (17:59)
[2020-09-21] MEDS ORDERED: PIPERACILL/TAZOBAC CONSULT ACTIVE PRN (18:01)
--- NOTE | 2020-09-21 18:13 | Procedure Note ---
Procedure Note Date of Service September 21, 2020 Note CENTRAL LINE PROCEDURE NOTE: Procedure: Central Line Placement Provider: Vaughn Sellers MD Indication: Central Drug Administration, Poor Venous Access, Multiple Lab Draws Necessary, etc. Anesthesia: 5 cc 1% lidocaine Site: Right femoral Procedure was urgent. No family immediately available. A time-out was completed verifying correct patient, procedure, site, positioning, and implants(s) or special equipment if applicable. I tried to image with ultrasound the internal jugular veins however they were poorly visualized and did not appear appropriate for cannulation. The right femoral vein was easily visualized posterior to the femoral artery however I was able to find an access point. Patients right groin was cleansed and draped in the typical sterile fashion using Chloraprep. The femoral vein and artery were identified using ultrasound. The superficial tissue was anesthetized using 5 mL of 1% lidocaine without epinephrine under direct visualization with the ultrasound. After adequate anesthetization was achieved, the right femoral vein was cannulated under direct ultrasound guidance using an introducer needle on a syringe. Good venous blood return was maintained prior to removal of syringe from introducer needle. Using Seldinger Technique, a guide wire was advanced through the introducer needle without resistance. The introducer needle was removed. A small incision was made in penetrating fashion at the guide wire insertion site utilizing an 11 blade scalpel. The dilator was advanced to the vessel without resistance. The dilator was exchanged for the triple lumen catheter which was advanced into the vessel without resistance. The guide wire was removed intact from the catheter without issue. Claves were placed on each catheter tip with confirmation of good blood flow from each lumen. Each port was easily flushed with sterile saline. The catheter was placed at the hub and sutured in place. BioPatch was applied to the catheter and a sterile Tegaderm dressing was applied over the catheter with careful attention to sterility. Patient tolerated procedure well. No immediate complications were met. Estimated blood loss, less than 5 mL Coding CPT Codes Tubes, Drains, and Vasc Access - Tubes, Drains, and Vasc Access: [id number] Place catheter in vein superior or inferior vena cava ([id number]) Tubes, Drains, and Vasc Access - Tubes, Drains, and Vasc Access: [id number] Ultrasound Guidance For Vascular ([id number]) [facility] Procedure Codes (Charges) Tubes, Drains, and Vasc Access Procedure 1: Tubes, Drains, and Vasc Access: [id number] Place catheter in vein superior or inferior vena cava Procedure 2: Tubes, Drains, and Vasc Access: [id number] Ultrasound Guidance For Vascular
[2020-09-21] MEDS ORDERED: PIPERACILLIN/TAZOBACTAM 3.375 GM in DEXTROSE 5% 100 ML IV ONE (18:15)
[2020-09-21] MEDS: NOREPINEPHRINE/D5W 8 MG/508 ML BAG IV SCH (18:21)
[2020-09-21 18:25] LABS: Hemoglobin 10.8 g/dL (14.0-18.0); Mean Corpuscular Hemoglobin 30.4 pg (25-34); Mean Corpuscular Hgb Conc 34.8 g/dL (32-36); Mean Corpuscular Volume 87.3 fL (80-100); Platelet Count 187 K/uL (130-400); RDW Standard Deviation 51.1 fL (36.4-46.3); Red Blood Count 3.55 M/uL (4.7-6.1); White Blood Count 26.06 K/uL (4.8-10.8)
[2020-09-21 18:42] LABS: Albumin Level 3.5 gm/dl (3.4-5.0); Calcium 9.1 mg/dl (8.5-10.1); Creatinine Clr Calc Pharmacy 32.9 ml/min; Est GFR (African American) 23.4 ml/min; Est GFR (Non-African American) 20.2 ml/min; Potassium 4.4 mmol/L (3.5-5.1)
[2020-09-21 18:45] LABS: Albumin Globulin Ratio 1.1 (0.9-2); Bilirubin,Total 1.2 mg/dl (0.2-1); Globulin 3.3 gm/dl (2.5-4.0); Total Protein 6.8 gm/dl (6.4-8.2)
[2020-09-21 19:15] LABS: Basophils # (auto) 0.03 K/uL (0-0.2); Basophils % (auto) 0.1 %; Eosinophils # (auto) 0.01 K/uL (0-0.5); Immature Granulocytes # (auto) 0.33 K/uL (0.00-0.02); Immature Granulocytes % (auto) 1.3 %; Lymphocytes # (auto) 6.07 K/uL (1.2-3.4); Lymphocytes % (auto) 23.3 %; Monocytes # (auto) 1.16 K/uL (0.11-0.59); Monocytes % (auto) 4.5 %; Neutrophils # (auto) 18.46 K/uL (1.4-6.5); Neutrophils % (auto) 70.8 %
[2020-09-21] MEDS ORDERED: ONDANSETRON INJ 2 MG/ML 2 ML VIAL ONE (19:24)
[2020-09-21] MEDS ORDERED: ONDANSETRON INJ 2 MG/ML 2 ML VIAL IV ONE (19:26)
[2020-09-21] MEDS: METOPROLOL SUCC 25MG EXT REL TAB PO SCH (20:02)
[2020-09-21] MEDS: AMITRIPTYLINE HCL 10 MG TAB PO SCH (20:10)
[2020-09-21] MEDS: ATORVASTATIN 10 MG TAB PO SCH (20:10)
--- NOTE | 2020-09-21 20:14 | CT Scan Report ---
ABDOMEN AND PELVIS CT WITHOUT CONTRAST CT DOSE: 3058.43 mGy.cm HISTORY: Acute generalized abdominal pain with distention abdominal distention TECHNIQUE: Multiaxial CT images of the abdomen and pelvis were performed without contrast. A dose lo wering technique was utilized adhering to the principles of ALARA. COMPARISON STUDY: None FINDINGS: Moderate cardiomegaly with extensive coronary artery calcifications. Small pericardial effu toshia. Respiratory motion artifact limits the study as does upper extremity positioning. Mild bibasila r mucous plugging with patchy groundglass bibasilar densities. Unremarkable spleen, pancreas and live r. Cholecystectomy. There are 2 nonobstructing calculi of the left kidney measuring up to 8 mm. Mild nonspecific bilatera l perinephric stranding. 6.4 cm cyst of the superior pole right kidney. 8 mm nonobstructing calculus of the interpolar right kidney. No ureteral calculi or hydronephrosis. Decompressed urinary bladder w ith Jennings catheter. Hemorrhage is noted within the space of Retzius. Moderate retroperitoneal hematoma includes an 8.1 x 4.4 x 10.3 cm hematoma of the left iliacus muscle which extends into the iliopsoas psoas. There is moderate to extensive amount of adjacent extraperit zuniga hemorrhage in the left hemipelvis and left lower quadrant of the abdomen. No bowel obstruction or bowel wall thickening. Noninflamed appendix. Bilateral hip total joint arthroplasties. Degenerativ e changes of the spine. Multilevel central canal and neural foraminal narrowing. IMPRESSION: 1. Acute moderate to extensive retroperitoneal and extraperitoneal hemorrhage of the abdominal left l ower quadrant and left hemipelvis includes a 10 cm hematoma of the left iliacus muscle. Hemorrhage ex tends into the space of Retzius compressing the adjacent large bowel and urinary bladder. 2. Nonobstructing bilateral nephrolithiasis. No hydronephrosis. 3. No bowel obstruction or bowel wall thickening. 4. Additional findings as above. ACT 112: Negative or not required by law. The above report was generated using voice recognition software. It may contain grammatical, syntax o r spelling errors. Electronically signed by: Andrea Cox M.D. 09/21/2020 8:13 PM
--- NOTE | 2020-09-21 20:16 | CT Scan Report ---
CT head/brain wo con CLINICAL HISTORY: 75 years-old Male with Confused. Acutely altered mental status TECHNIQUE: Multiple axial CT images of the head were obtained without contrast. A dose lowering tech nique was utilized adhering to the principles of ALARA. COMPARISON: None. FINDINGS: No acute intracranial hemorrhage, midline shift, intracranial mass, hydrocephalus, territorial ischem ia or abnormal extra-axial collection. Age-related involutional changes. White matter hypodensities s uggestive of chronic microvascular ischemic disease. Cerebral vascular calcifications. The calvarium is intact. Mild polypoid mucosal thickening of the right maxillary sinus. Prior right- sided lens repair. IMPRESSION: No acute intracranial abnormality. ACT 112: Negative or not required by law. The above report was generated using voice recognition software. It may contain grammatical, syntax o r spelling errors. Electronically signed by: Andrea Cox M.D. 09/21/2020 8:14 PM
[2020-09-21 21:35] LABS: Hematocrit (blood only) 30.9 % (42-52); Hemoglobin 10.8 g/dL (14.0-18.0)
[2020-09-21 21:46] LABS: INR 1.1 (0.9-1.1); Partial Thromboplastin Time 26.5 Seconds (21.0-31.0); Prothrombin Time 11.4 Seconds (9.0-12.0)
[2020-09-21] MEDS ORDERED: PIPERACILLIN/TAZOBACTAM 2.25 GM in DEXTROSE 5% 100 ML IV SCH (22:00)
--- NOTE | 2020-09-21 22:39 | Procedure Note ---
Procedure Note Date of Service September 21, 2020 Note ARTERIAL LINE PROCEDURE NOTE: Procedure: Arterial Line Placement Attending: Dr. Kenan Sellers Provider: BISHOP Andersen Indication: Monitoring on Pressors Anesthesia: Lidocaine 1% Line placed emergently and hemodynamically unstable patient requiring continuous vasopressor support and continuous blood pressure monitoring A time-out was completed verifying correct patient, procedure, site, positioning, and implant(s) or special equipment if applicable. Allens test was performed to ensure adequate perfusion. Patients left wrist was prepped and draped in the usual sterile fashion. Ultrasound guidance was used to aid needle placement. A 20g Arrow arterial line was introduced into the left radial artery. Catheter was threaded, and the needle was removed with appropriate blood return. Good waveform was observed. The patient tolerated the procedure well. Confirmation of placement with ultrasound. Blood Loss: Minimal Complications: None Procedural Ultrasound Guidance: Procedure Date: 09/21/2020 Indication: Arterial line insertion Attending: Dr. Kenan Sellers Provider: BISHOP Andersen Artery Identified: YES Line confirmed in Artery with ultrasound: Yes Complications: NONE Patient tolerated procedure: WELL Coding CPT Codes Tubes, Drains, and Vasc Access - Tubes, Drains, and Vasc Access: [id number] Place Catheter In Artery ([id number]) Tubes, Drains, and Vasc Access - Tubes, Drains, and Vasc Access: [id number] Ultrasound Guidance For Vascular ([id number]) [facility] Procedure Codes (Charges) Tubes, Drains, and Vasc Access Procedure 3: Tubes, Drains, and Vasc Access: [id number] Place Catheter In Artery Procedure 4: Tubes, Drains, and Vasc Access: [id number] Ultrasound Guidance For Vascular
--- NOTE | 2020-09-21 22:51 | Communication Note ---
Date of Service: September 21, 2020 This evening patient remains hemodynamically unstable requiring vasopressors and arterial line was inserted without complication. CT abdomen pelvis was c ompleted this afternoon and revealed an acute moderate to extensive retroperitoneal and extraperitoneal hemorrhage of the abdominal left lower quadrant and left hemipelvis including a 10 cm hematoma of the left iliac us muscle. Hemorrhage extends into the space of Retzius compressing the adjutant large bowel and urinary bladder. No bowel obstruction or bowel wall thickening. Nonobstructing bilateral nephrolithiasis without hydronephrosis. His lactate trended down to 2.9 from 3.3 and procalcitonin mildly elevated at 0.76. Repeat hemoglobin 10.8x2 and coags within normal limits, no indication for transfusion at this time. No evidence of continued bleeding. Heparin drip was turned off earlier this afternoon. His abdomen remains distended but soft and nontender. I did speak with interventional radiologist at [facility] concerning the retroperitoneal bleed and discussed radiology findings along with patient's course and status. At this time, no transfer for IR was recommended and he recommended continued supportive care. Will trend H&H every 4 for now. We will continue with current management in ICU for now. Will reevaluate potential need for transfer in the a.m. Of note I did speak with the patient's to update her on his status and concerning a potential need for transfer and she did not want the patient to go back to [facility] and prefers [facility] services if possible. CRITICAL CARE TIME - I have personally spent 60 minutes of critical care time in the direct management of this patient. This is a life/limb threatening event. This includes time spent evaluating patient, direct bedside care, chart review, placing orders, interpretation of diagnostic studies, discussion with consultants, patient, and family members, as well as other required patient management activities. This time is exclusive of all separately billable procedures, and teaching time and separate from and in addition to any other critical care service time. Coding Level of Care Code Critical Care emani addt'l 30 min
[2020-09-21 23:10] LABS: Fibrinogen 565 mg/dl (184-400)
[2020-09-21] MEDS ORDERED: CARBOHYDRATES FOR HYPOGLYCEMIA PO PRN (23:56)
[2020-09-21] MEDS ORDERED: DEXTROSE 50% 50 ML SYRINGE IV PRN (23:56)
[2020-09-21] MEDS ORDERED: GLUCOSE 40% GEL 15 GM TUBE PO PRN (23:56)
[2020-09-21] MEDS ORDERED: GLUCOSE 10 TABS/TUBE PO PRN (23:56)
[2020-09-21] MEDS ORDERED: GLUCAGON FOR INJ 1 MG VIAL SQ PRN (23:56)
[2020-09-22 00:12] LABS: Hematocrit (blood only) 30.6 % (42-52); Hemoglobin 10.7 g/dL (14.0-18.0)
[2020-09-22] MEDS: PIPERACILLIN/TAZOBACTAM 3.375 GM in DEXTROSE 5% 100 ML IV SCH ×2 (00:30→09:04)
[2020-09-22] MEDS: INSULIN ASPART 100 UNITS/ML 3 ML PEN SC SCH ×3 (01:25→12:05)
[2020-09-22] MEDS: NOREPINEPHRINE/D5W 8 MG/508 ML BAG IV SCH ×2 (03:16→12:05)
[2020-09-22 04:27] LABS: INR 1.1 (0.9-1.1); Partial Thromboplastin Time 26.6 Seconds (21.0-31.0); Prothrombin Time 11.1 Seconds (9.0-12.0)
[2020-09-22 04:30] LABS: BUN Creatinine Ratio 24.5 (10-20); Calcium 8.9 mg/dl (8.5-10.1); Creatinine Clr Calc Pharmacy 32.2 ml/min; Est GFR (African American) 22.4 ml/min; Est GFR (Non-African American) 19.4 ml/min; Potassium 4.3 mmol/L (3.5-5.1)
[2020-09-22 04:40] LABS: Hematocrit (blood only) 29.9 % (42-52); Hemoglobin 10.6 g/dL (14.0-18.0); Mean Corpuscular Hemoglobin 30.9 pg (25-34); Mean Corpuscular Hgb Conc 35.5 g/dL (32-36); Mean Corpuscular Volume 87.2 fL (80-100); Mean Platelet Volume 9.6 fL (7.4-10.4); Nucleated RBC # (auto) 0.02 K/uL (0-0); Nucleated RBC % (auto) 0.1 %; Platelet Count 239 K/uL (130-400); RDW Coefficient of Variation 16.2 % (11.5-14.5); RDW Standard Deviation 51.4 fL (36.4-46.3); Red Blood Count 3.43 M/uL (4.7-6.1); White Blood Count 36.57 K/uL (4.8-10.8)
[2020-09-22 04:41] LABS: ALC (manual) 10.72 K/uL (1.2-3.4); Basophils # (manual) 0.33 K/uL (0-0.2); Basophils % (manual) 0.9 %; Lymphocytes # (manual) 10.72 K/uL (1.2-3.4); Lymphocytes % (manual) 29.3 %; Monocytes # (manual) 0.62 K/uL (0.11-0.59); Monocytes % (manual) 1.7 %; Neutrophils % (manual) 68.1 %; RBC Morphology Unremarkable
[2020-09-22] MEDS: Albuterol HFA 8 GM Inhaler (Combivent Respimat P&T Subs) INH SCH ×2 (07:40→11:06)
[2020-09-22] MEDS: Ipratropium HFA Inhaler (Combivent Respimat P&T Subs) INH SCH ×2 (07:40→11:05)
[2020-09-22] MEDS: CALCIUM CARBONATE 1250MG TAB PO SCH (07:56)
[2020-09-22] MEDS: UMECLIDINIUM BROMIDE 62.5MCG/BLISTER 7 PUFFS/INHALER INH SCH (07:58)
[2020-09-22] MEDS: CYANOCOBALAMIN 500 MCG TABLET (VITAMIN B-12) PO SCH (07:59)
[2020-09-22] MEDS: NYSTATIN/TRIAMCIN CR 15 GM TUBE EXT SCH (08:00)
[2020-09-22] MEDS: ASCORBIC ACID 500 MG TAB PO SCH (08:00)
[2020-09-22] MEDS: FINASTERIDE 5 MG TAB PO SCH (08:00)
[2020-09-22] MEDS: lamoTRIgine 100 MG TAB PO SCH (08:01)
[2020-09-22] MEDS: LORATADINE 10 MG TAB PO SCH (08:01)
[2020-09-22] MEDS: TAMSULOSIN HCL 0.4 MG CAP PO SCH (08:02)
[2020-09-22] MEDS: CHOLECALCIFEROL 1,000 UNITS 25 MCG TAB PO SCH (08:03)
[2020-09-22] MEDS: DORZOLAMIDE HCL 2% OPH SOLN 10 ML BTL OPB SCH (08:03)
[2020-09-22] MEDS: PANTOprazole 40 MG TAB PO SCH (08:03)
[2020-09-22] MEDS: ZINC SULFATE 220 MG CAPSULE PO SCH (08:03)
[2020-09-22] MEDS: LACTOBACILLUS ACIDOPHILUS 1 GM PACK PO SCH ×2 (08:04→12:05)
[2020-09-22] MEDS: OMEGA-3 (PURIFIED FISH OIL) 1 GM CAP PO SCH (08:04)
[2020-09-22] MEDS: LACTULOSE SYRUP 20 GM/30 ML UDC PO SCH (08:05)
[2020-09-22 08:06] LABS: Hematocrit (blood only) 29.4 % (42-52); Hemoglobin 10.3 g/dL (14.0-18.0)
[2020-09-22] MEDS: DOCUSATE SODIUM 100 MG CAP PO SCH (08:13)
[2020-09-22] MEDS: CEROVITE ADV FORMULA TAB PO SCH (08:14)
[2020-09-22] MEDS: ASPIRIN 81 MG ECTAB PO SCH (08:14)
--- NOTE | 2020-09-22 08:51 | Critical Care Progress Note ---
Date of Service September 22, 2020 Assessment & Plan (1) Chronic heart failure with preserved ejection fraction (HFpEF): (2) Lactic acidosis: (3) JS (acute kidney injury): Plan: Impression: 75-year-old male admitted 09/17 with chest pain. Patient's had m sagarle recent admissions at [facility] for heart failure acute kidney injury pneumonia and cellulitis he had palpitations at the rehab center which prompted return to the emergency room and he was admitted with Eb leiva. He is transferred to the ICU today with hypotension, lactic acidosis, abdominal distention, nausea vomiting, and worsening renal function and altered mental status.. He has undergone a biopsy of the abdominal fat pad to exclude amyloidosis. 24-hour events: Patient was transferred to the ICU. Central access was obtained. He was initiated on vasopressor agents. CT of the abdomen and pelvis performed which revealed a large retroperitoneal hematoma on the left. He has been an uric. Recommendations: 1. Neurologic: Encephalopathy: Suspect metabolic with combinations of acute renal failure and hypoperfusion. His exam is nonfocal. CT of the head was negative. Ammonia level was normal. Potentially offending medications have been discontinued given his worsening renal function. Continue to follow clinically 2. Cardiovascular: Hypotension: Suspect intravascular depletion and acute blood loss with underlying sepsis. Check random cortisol. He received about a liter of fluid yesterday without significant improvement. He has grade 3 diastolic dysfunction. Lactate is cleared so we will hold off on additional fluids for now. His intravascular volume is difficult to estimate due to his body habitus. Holding all anticoagulation including antiplatelet agents given his large retroperitoneal hematoma 3. Pulmonary: History of sleep disordered breathing: Continue CPAP at night. Wean oxygen as tolerated. Blood gas demonstrates a respiratory alkalosis likely secondary to the patient's metabolic abnormality 4. GI: N.p.o. for now 5. Renal: Worsening renal function. Patient is now anuric. Suspect his hypotension may have worsened his renal function. He is now hyponatremic but he is potassium and acid-base status appear to be adequate. Volume status is currently acceptable. Additional recommendations per nephrology 6. ID: Presumed septic shock: Day #2 empiric Zosyn. Potential gut translocation given transient hypotension. Cultures are pending. Follow white blood cell count which is markedly elevated today. 7. Heme-onc: Patient has mild anemia but no indication for transfusion. Continue to trend hemoglobin and hematocrit and 8. Endocrine: Glycemic control per ICU protocol. 9. Given the patient's significant medical comorbidities and anuric renal failure requiring vasopressor support, if he were to progress to needing renal replacement, not sure that we could do conventional dialysis here. In addition we do not have interventional radiology should the patient rebleed. For now his hemoglobin is stable. Unable to assess if the hematoma became secondarily infected as we do not have mechanism to sample or drain this fluid. Interventional radiology from [facility] reviewed the case yesterday and did not recommend urgent transfer but given his medical morbidities, he may require higher level of care. Will discuss with hospitalist as well as nephrology. Patient remains critically ill at this point time with significant possibility of decline in function. A total of 47 minutes critical care time was spent in evaluation management stabilization of this patient including discussion with bedside nurse and other consultants. Admission and Anticipated Discharge Date Admission Date: September 17, 2020 Subjective Patient is awake and alert. He states the back pain he was experiencing previously is resolved. He denies any abdominal pain nausea or vomiting. His mental status remains intermittently confused. He is protecting his airway. He is not had any additional nausea or vomiting. Review of Systems Review of Systems: All systems reviewed & are unremarkable except as noted in HPI & below Physical Exam Constitutional: WD/WN, vitals as above Morbidly obese Neck: trachea midline, no thyromegaly Respiratory: normal respiratory effort, lungs clear to auscultation Cardiovascular: RRR, no murmur, no edema Gastrointestinal (Abdomen): normal bowel sounds, soft, nontender, no hepatosplenomegaly Musculoskeletal: Extremities: extremities normal to inspection Skin: no rashes, warm and dry Neurologic: Nonfocal exam Lymphatic: no cervical lymphadenopathy Results & Data Results & Data ([facility]) Vital Signs (Past 12 Hours) Vital Signs Temp Pulse Pulse Resp BP BP BP 09/22/20 07:42 87 16 09/22/20 07:00 37.0 C 89 22 128/50 L 107/61 09/22/20 06:35 84 16 128/53 L 09/22/20 06:05 83 13 104/69 09/22/20 05:35 87 21 111/60 09/22/20 05:05 85 18 109/50 L 09/22/20 04:36 86 20 09/22/20 04:18 37.4 C 09/22/20 04:07 83 18 112/62 09/22/20 03:35 85 20 111/61 09/22/20 03:05 84 26 H 98/56 L 09/22/20 02:35 88 20 116/55 L 09/22/20 02:06 88 22 101/57 L 09/22/20 01:35 99 H 19 117/67 09/22/20 01:05 86 19 97/42 L 09/22/20 00:57 86 17 118/49 L 09/22/20 00:30 88 21 09/22/20 00:20 93 H 20 09/22/20 00:10 94 H 19 09/22/20 00:00 88 20 09/21/20 23:50 87 18 09/21/20 23:40 89 21 09/21/20 23:37 92 H 21 09/21/20 23:05 81 20 94/55 L 09/21/20 22:35 83 14 90/53 L 09/21/20 22:20 85 18 97/45 L 09/21/20 22:05 86 21 71/48 L 09/21/20 21:50 86 20 106/45 L 09/21/20 21:20 86 19 90/41 L 09/21/20 21:05 90 24 93/58 L 09/21/20 20:51 85 19 94/53 L 09/21/20 20:45 89 21 75/58 L Pulse Ox 09/22/20 07:42 95 09/22/20 07:00 96 09/22/20 06:35 95 09/22/20 06:05 95 09/22/20 05:35 94 09/22/20 05:05 95 09/22/20 04:36 96 09/22/20 04:18 09/22/20 04:07 96 09/22/20 03:35 96 09/22/20 03:05 96 09/22/20 02:35 95 09/22/20 02:06 97 09/22/20 01:35 95 09/22/20 01:05 94 09/22/20 00:57 97 09/22/20 00:30 94 09/22/20 00:20 96 09/22/20 00:10 95 09/22/20 00:00 95 09/21/20 23:50 95 09/21/20 23:40 95 09/21/20 23:37 96 09/21/20 23:05 96 09/21/20 22:35 96 09/21/20 22:20 96 09/21/20 22:05 93 09/21/20 21:50 95 09/21/20 21:20 96 09/21/20 21:05 96 09/21/20 20:51 97 09/21/20 20:45 96 Laboratory Results Fibrinogen 565 Lactate down to 1.4 Procalcitonin 0.76 Critical Care Results & Data Vital Signs (Past 12 Hours) Vital Signs Temp Pulse Pulse Resp BP BP BP 09/22/20 07:42 87 16 09/22/20 07:00 37.0 C 89 22 128/50 L 107/61 09/22/20 06:35 84 16 128/53 L 09/22/20 06:05 83 13 104/69 09/22/20 05:35 87 21 111/60 09/22/20 05:05 85 18 109/50 L 09/22/20 04:36 86 20 09/22/20 04:18 37.4 C 09/22/20 04:07 83 18 112/62 09/22/20 03:35 85 20 111/61 09/22/20 03:05 84 26 H 98/56 L 09/22/20 02:35 88 20 116/55 L 09/22/20 02:06 88 22 101/57 L 09/22/20 01:35 99 H 19 117/67 09/22/20 01:05 86 19 97/42 L 09/22/20 00:57 86 17 118/49 L 09/22/20 00:30 88 21 09/22/20 00:20 93 H 20 09/22/20 00:10 94 H 19 09/22/20 00:00 88 20 09/21/20 23:50 87 18 09/21/20 23:40 89 21 09/21/20 23:37 92 H 21 09/21/20 23:05 81 20 94/55 L 09/21/20 22:35 83 14 90/53 L 09/21/20 22:20 85 18 97/45 L 09/21/20 22:05 86 21 71/48 L 09/21/20 21:50 86 20 106/45 L 09/21/20 21:20 86 19 90/41 L 09/21/20 21:05 90 24 93/58 L 09/21/20 20:51 85 19 94/53 L 09/21/20 20:45 89 21 75/58 L Pulse Ox 09/22/20 07:42 95 09/22/20 07:00 96 09/22/20 06:35 95 09/22/20 06:05 95 09/22/20 05:35 94 09/22/20 05:05 95 09/22/20 04:36 96 09/22/20 04:18 09/22/20 04:07 96 09/22/20 03:35 96 09/22/20 03:05 96 09/22/20 02:35 95 09/22/20 02:06 97 09/22/20 01:35 95 09/22/20 01:05 94 09/22/20 00:57 97 09/22/20 00:30 94 09/22/20 00:20 96 09/22/20 00:10 95 09/22/20 00:00 95 09/21/20 23:50 95 09/21/20 23:40 95 09/21/20 23:37 96 09/21/20 23:05 96 09/21/20 22:35 96 09/21/20 22:20 96 09/21/20 22:05 93 09/21/20 21:50 95 09/21/20 21:20 96 09/21/20 21:05 96 09/21/20 20:51 97 09/21/20 20:45 96 Lab & Micro Results (Past 24 Hours) RBC 3.43 M/uL (4.7-6.1) L 09/22/20 WBC 36.57 K/uL (4.8-10.8) H* 09/22/20 Hgb 10.3 g/dL (14.0-18.0) L 09/22/20 Hct 29.4 % (42-52) L 09/22/20 MCV 87.2 fL (80-100) 09/22/20 MCH 30.9 pg (25-34) 09/22/20 MCHC 35.5 g/dL (32-36) 09/22/20 RDW Standard Deviation 51.4 fL (36.4-46.3) H 09/22/20 RDW Coefficient of Variation 16.2 % (11.5-14.5) H 09/22/20 Plt Count 239 K/uL (130-400) 09/22/20 MPV 9.6 fL (7.4-10.4) 09/22/20 Nucleated Red Blood Cells % (auto) 0.1 % 09/22/20 Nucleated RBC Absolute Count (auto) 0.02 K/uL (0-0) H 09/22/20 Neutrophils (%) (Auto) 70.8 % 09/21/20 Lymphocytes (%) (Auto) 23.3 % 09/21/20 Monocytes # (Auto) 1.16 K/uL (0.11-0.59) H 09/21/20 Eosinophils # (Auto) 0.01 K/uL (0-0.5) 09/21/20 Immature Granulocyte % (Auto) 1.3 % 09/21/20 Neutrophils # (Auto) 18.46 K/uL (1.4-6.5) H 09/21/20 Lymphocytes # (Auto) 6.07 K/uL (1.2-3.4) H 09/21/20 Monocytes # (Auto) 1.16 K/uL (0.11-0.59) H 09/21/20 Eosinophils # (Auto) 0.01 K/uL (0-0.5) 09/21/20 Basophils # (Auto) 0.03 K/uL (0-0.2) 09/21/20 Immature Granulocyte # (Auto) 0.33 K/uL (0.00-0.02) H 09/21/20 ANC 24.90 K/uL (1.4-6.5) H 09/22/20 ALC 10.72 K/uL (1.2-3.4) H 09/22/20 Neutrophils % (Manual) 68.1 % 09/22/20 Lymphocytes % (Manual) 29.3 % 09/22/20 Monocytes % (Manual) 1.7 % 09/22/20 Basophils % (Manual) 0.9 % 09/22/20 Neutrophils # (Manual) 24.90 K/uL (1.4-6.5) H 09/22/20 Lymphocytes # (Manual) 10.72 K/uL (1.2-3.4) H 09/22/20 Monocytes # (Manual) 0.62 K/uL (0.11-0.59) H 09/22/20 Basophils # (Manual) 0.33 K/uL (0-0.2) H 09/22/20 Red Blood Cell Morphology Unremarkable 09/22/20 Na 125 mmol/L (136-145) L 09/22/20 K 4.3 mmol/L (3.5-5.1) 09/22/20 Cl 90 mmol/L (98-107) L 09/22/20 CO2 23 mmol/L (21-32) 09/22/20 Anion Gap 12.0 (3-11) H 09/22/20 BUN 73 mg/dl (7-18) H 09/22/20 Creatinine 2.99 mg/dl (0.6-1.4) H 09/22/20 Estimated GFR ( Amer) 22.4 ml/min 09/22/20 Estimated GFR (Non-Af Amer) 19.4 ml/min 09/22/20 BUN/Creatinine Ratio 24.5 (10-20) H 09/22/20 Glu 191 mg/dl (70-99) H 09/22/20 Ca 8.9 mg/dl (8.5-10.1) 09/22/20 Total Bilirubin 1.2 mg/dl (0.2-1) H 09/21/20 AST 128 U/L (15-37) H 09/21/20 ALT 69 U/L (12-78) 09/21/20 Alkaline Phosphatase 84 U/L (45-117) 09/21/20 TP 6.8 gm/dl (6.4-8.2) 09/21/20 Albumin 3.5 gm/dl (3.4-5.0) 09/21/20 Globulin 3.3 gm/dl (2.5-4.0) 09/21/20 Albumin/Globulin Ratio 1.1 (0.9-2) 09/21/20 Calcium Level 8.9 mg/dl (8.5-10.1) 09/22/20 04:03 09/22/20 Prothromb Time International Ratio 1.1 (0.9-1.1) 09/22/20 04:03 09/22/20 Blood Gas Barometric Pressure 736.1 mm/Hg 09/21/20 15:53 09/21/20 Arterial Blood pH 7.49 (7.35-7.45) H 09/21/20 15:53 09/21/20 Arterial Blood Partial Pressure CO2 28 mmHg (35-46) L 09/21/20 15:53 09/21/20 Arterial Blood Partial Pressure O2 86 mmHg (80-95) 09/21/20 15:53 09/21/20 Arterial Blood HCO3 21 mmol/L (19-24) 09/21/20 15:53 09/21/20 Arterial Blood Base Excess -1.3 mEq/L (-9-1.8) 09/21/20 15:53 09/21/20 Arterial Blood Oxygen Saturation 97.3 % (90-95) H 09/21/20 15:53 09/21/20 Blood Gas Oxygen Given 2% 09/21/20 15:53 09/21/20 Surjit Test Pos (Pos) 09/21/20 15:53 09/21/20 Blood Gas Barometric Pressure 736.1 mm/Hg 09/21/20 15:53 09/21/20 Diagnostic Findings (Past 24 Hours) Chest X-Ray 09/21/20 09:28 XR chest 1V portable HISTORY: Shortness of breath. COMPARISON: Chest 09/17/2020. FINDINGS: No pneumothorax. The heart remains moderately enlarged. There is left basilar density/effusion, unchanged. The right lung is clear. IMPRESSION: No change in the cardiomegaly and left basilar density/effusion. ACT 112: Negative or not required by law. Electronically signed by: Calvin Matthews M.D. 09/21/2020 9:55 AM Abdomen/Pelvis CT 09/21/20 12:[address] WITHOUT CONTRAST CT DOSE: 3058.43 mGy.cm HISTORY: Acute generalized abdominal pain with distention abdominal distention TECHNIQUE: Multiaxial CT images of the abdomen and pelvis were performed without contrast. A dose lowering technique was utilized adhering to the principles of ALARA. COMPARISON STUDY: None FINDINGS: Moderate cardiomegaly with extensive coronary artery calcifications. Small pericardial effusion. Respiratory motion artifact limits the study as does upper extremity positioning. Mild bibasilar mucous plugging with patchy groundglass bibasilar densities. Unremarkable spleen, pancreas and liver. Cholecystectomy. There are 2 nonobstructing calculi of the left kidney measuring up to 8 mm. Mild nonspecific bilateral perinephric stranding. 6.4 cm cyst of the superior pole right kidney. 8 mm nonobstructing calculus of the interpolar right kidney. No ureteral calculi or hydronephrosis. Decompressed urinary bladder with Jennings catheter. Hemorrhage is noted within the space of Retzius. Moderate retroperitoneal hematoma includes an 8.1 x 4.4 x 10.3 cm hematoma of the left iliacus muscle which extends into the iliopsoas psoas. There is moderate to extensive amount of adjacent extraperitoneal hemorrhage in the left hemipelvis and left lower quadrant of the abdomen. No bowel obstruction or bowel wall thickening. Noninflamed appendix. Bilateral hip total joint arthroplasties. Degenerative changes of the spine. Multilevel central canal and neural foraminal narrowing. IMPRESSION: 1. Acute moderate to extensive retroperitoneal and extraperitoneal hemorrhage of the abdominal left lower quadrant and left hemipelvis includes a 10 cm hematoma of the left iliacus muscle. Hemorrhage extends into the space of Retzius compressing the adjacent large bowel and urinary bladder. 2. Nonobstructing bilateral nephrolithiasis. No hydronephrosis. 3. No bowel obstruction or bowel wall thickening. 4. Additional findings as above. ACT 112: Negative or not required by law. The above report was generated using voice recognition software. It may contain grammatical, syntax or spelling errors. Electronically signed by: Andrea Cox M.D. 09/21/2020 8:[address] 09/21/20 12:53 CT head/brain wo con CLINICAL HISTORY: 75 years-old Male with Confused. Acutely altered mental status TECHNIQUE: Multiple axial CT images of the head were obtained without contrast. A dose lowering technique was utilized adhering to the principles of ALARA. COMPARISON: None. FINDINGS: No acute intracranial hemorrhage, midline shift, intracranial mass, hydrocephalus, territorial ischemia or abnormal extra-axial collection. Age- related involutional changes. White matter hypodensities suggestive of chronic microvascular ischemic disease. Cerebral vascular calcifications. The calvarium is intact. Mild polypoid mucosal thickening of the right maxillary sinus. Prior right-sided lens repair. IMPRESSION: No acute intracranial abnormality. ACT 112: Negative or not required by law. The above report was generated using voice recognition software. It may contain grammatical, syntax or spelling errors. Electronically signed by: Andrea Cox M.D. 09/21/2020 8:14 PM I & O Totals 24 Hours 09/21/20 09/22/20 09/23/20 06:59 06:59 06:59 Intake Total 720 / 840 2914.841 / 3012.654 144.913 / 144.913 Output Total 600 / 600 1445 / 1445 Balance 120 / 240 1469.841 / 1567.654 136.913 / 136.913 Cumulative 09/17/20 12:00 thru 09/22/20 07:45 Intake Total 7830.736 Output Total 6105 Balance 1725.736 RT Ventilator Mngmt (Last Documented) Ventilator Ordered Settings Respiratory Rate 16 09/22/20 07 :42 Fraction of Inspired Oxygen 09/18/20 19:23 Ventilator - PT Measurements Respiratory Rate 16 Coding Level of Care Code Critical Care 1st 30-74 mins Diagnoses Chronic heart failure with preserved ejection fraction (HFpEF) I50.32 Lactic acidosis E87.2 JS (acute kidney injury) N17.9 Time Spent (min) 47
--- NOTE | 2020-09-22 10:39 | Hospitalist Progress Note ---
Date of Service September 22, 2020 Assessment & Plan (1) Atrial fibrillation, new onset: (2) Elevated troponin: (3) Left-sided chest pain: (4) CAD (coronary artery disease): (5) Acute on chronic heart failure with preserved ejection fraction (HFpEF): (6) LBBB (left bundle branch block): (7) JS (acute kidney injury): (8) ELHAM on CPAP: (9) Bilateral lower leg cellulitis: Plan: Patient is a 75 yr male with H/O CAD, chronic LBBB, history of HFrEF but EF now recovered, HTN, HLD, ELHAM on CPAP, morbid obesity, pulmonary hypertension, bipolar, GERD, RLS, POAG who presents to ED secondary to chest pain. Extensive retroperitoneal and extraperitoneal hemorrhage Left iliac muscle hematoma In setting of anticoagulation with IV heparin, Coumadin -CT ABD:Acute moderate to extensive retroperitoneal and extraperitoneal hemorrhage of the abdominal left lower quadrant and left hemipelvis includes a 10 cm hematoma of the left iliacus muscle. Hemorrhage extends into the space of Retzius compressing the adjacent large bowel and urinary bladder. Nonobstructing bilateral nephrolithiasis. No hydronephrosis. No bowel obstruction or bowel wall thickening. -CT Head: No acute intracranial abnormality. -INR 1.1 -IV heparin, Coumadin discontinued Monitor H&H and transfuse PRBCs as needed Appreciate senior electrical designer help NPO for now Given significant medical comorbidities, unavailability of interventional radiology at [facility], possible secondary hematoma infection patient was thought to be better served at a tertiary care facility Madhu Renee senior electrical designer at [facility] kindly accepted the patient Patient will be transferred to [facility] for further management Hypotension Likely multifactorial: Intra-abdominal bleed, renal failure, possible septic shock Currently on pressors Lactic acid normalized Appreciate senior electrical designer help Continue to monitor in ICU Continue broad-spectrum IV antibiotics with Zosyn Blood Cultures pending New onset atrial fibrillation Elevated troponin in setting of Afib, JS H/O CAD, LBBB Normal TSH Continue metoprolol IV heparin discontinued due to abdominal hemorrhage Appreciate cardiology input Continue Coumadin Monitor INR:1.1 today Rate controlled Coumadin held due to bleeding Acute on Chronic HFpEF Held Oral diuretics --ECHO: Severe concentric LVH along with speckling pattern of the myocardium highly suggestive of amyloidosis. EF 50 to 55%. Abnormal septal wall motion consistent with left bundle branch block pattern. Grade 3 diastolic dysfunction consistent with restrictive physiology. Mild mitral regurgitation. Moderate left atrial enlargement. Monitor I's and O's, daily weight Appreciate Cardiology Input Continue low-sodium diet IV lasix held due to JS, hypotension Hold Lisinopril due to hypotension Acute Metabolic Encephalopathy CT head as above Monitor Suspected amyloidosis ECHO as above Immunofixation serum:Normal pattern. No monoclonal proteins detected Urine electrophoresis pending FNA for Fat pad biopsy pending Acute kidney injury Likely multifactorial Celebrex discontinued Hold metaxalone, torsemide, spironolactone Avoid nephrotoxic agents as able Appreciate nephrology input Monitor renal function Cr:1.7>1.6>1.35>2.56>2.99 Hyponatremia Likely multifactorial--volume overload, medications: Methadone, spironolactone Continue fluid restriction Monitor sodium levels Sodium:127>128>125 Bilateral lower extremity cellulitis Was seen and evaluated by infectious disease during recent hospitalization treated with IV Rocephin On Keflex>>Changed to Rocephin given worsening leukocytosis Received doxycycline B/L lower ext edema and discoloration concern for PVD/PAD -BONNIE:Bilateral ankle brachial indices within normal limits. -Venous Doppler:No DVT within the right or left lower extremity. Intertrigo place on nystatin/triamcinolone consult wound nurse ELHAM on CPAP CPAP at HS COPD no acute exacerbation continue home inhalers DVT Px: IV Heparin, Coumadin--held due to bleeding Code Status Full Code Disposition [facility] Admission and Anticipated Discharge Date Admission Date: September 17, 2020 Subjective Patient is seen and examined at bedside Intermittently very confused Discussed with senior electrical designer today Currently on pressors Denies nausea, vomiting, abdominal pain, chest pain, dyspnea Plan to be transferred to [facility]. Review of Systems Review of Systems: All systems reviewed & are unremarkable except as noted in Subjective Physical Exam Physical Exam: Physical Exam: Vitals signs as noted above General Appearance:Moderately built and nourished, no apparent distress Head: normocephalic, Atraumatic Eyes: normal inspection, EOMI Neck: supple, Trachea midline Respiratory/Chest: Decreased breath sounds, CTA, No accessory muscle use Cardiovascular: Irregularly irregular, No murmur Abdomen/GI:Soft, Non tender, distended, Bowel sounds present Extremities/Musculoskeletal:normal inspection, B/L LE edema improving, +Rash Neurologic/Psych:AAOX3, grossly no focal neurological deficits Skin: normal color, warm Results & Data Results & Data ([facility]) Vital Signs (Past 12 Hours) Vital Signs Temp Pulse Pulse Resp BP BP BP 09/22/20 09:35 88 21 72/40 L 09/22/20 09:05 86 19 106/57 L 09/22/20 08:35 91 H 29 H 87/65 L 09/22/20 08:05 79 18 112/59 L 09/22/20 08:00 88 09/22/20 07:42 87 16 09/22/20 07:35 89 19 118/65 09/22/20 07:05 91 H 20 107/61 09/22/20 07:00 37.0 C 89 22 128/50 L 107/61 09/22/20 06:35 84 16 128/53 L 09/22/20 06:05 83 13 104/69 09/22/20 05:35 87 21 111/60 09/22/20 05:05 85 18 109/50 L 09/22/20 04:36 86 20 09/22/20 04:18 37.4 C 09/22/20 04:07 83 18 112/62 09/22/20 03:35 85 20 111/61 09/22/20 03:05 84 26 H 98/56 L 09/22/20 02:35 88 20 116/55 L 09/22/20 02:06 88 22 101/57 L 09/22/20 01:35 99 H 19 117/67 09/22/20 01:05 86 19 97/42 L 09/22/20 00:57 86 17 118/49 L 09/22/20 00:30 88 21 09/22/20 00:20 93 H 20 09/22/20 00:10 94 H 19 09/22/20 00:00 88 20 09/21/20 23:50 87 18 09/21/20 23:40 89 21 09/21/20 23:37 92 H 21 09/21/20 23:05 81 20 94/55 L 09/21/20 22:35 83 14 90/53 L Pulse Ox 09/22/20 09:35 95 09/22/20 09:05 93 09/22/20 08:35 92 09/22/20 08:05 96 09/22/20 08:00 09/22/20 07:42 95 09/22/20 07:35 96 09/22/20 07:05 96 09/22/20 07:00 96 09/22/20 06:35 95 09/22/20 06:05 95 09/22/20 05:35 94 09/22/20 05:05 95 09/22/20 04:36 96 09/22/20 04:18 09/22/20 04:07 96 09/22/20 03:35 96 09/22/20 03:05 96 09/22/20 02:35 95 09/22/20 02:06 97 09/22/20 01:35 95 09/22/20 01:05 94 09/22/20 00:57 97 09/22/20 00:30 94 09/22/20 00:20 96 09/22/20 00:10 95 09/22/20 00:00 95 09/21/20 23:50 95 09/21/20 23:40 95 09/21/20 23:37 96 09/21/20 23:05 96 09/21/20 22:35 96 Laboratory Results Short CBC 09/21/20 09/21/20 09/21/20 Range/Units 13:49 18:16 21:27 WBC 26.06 H (4.8-10.8) K/uL Hgb 11.9 L 10.8 L 10.8 L (14.0-18.0) g/dL Hct 34.2 L 31.0 L 30.9 L (42-52) % Plt Count 187 (130-400) K/uL 09/21/20 09/22/20 09/22/20 Range/Units 23:52 04:03 07:42 WBC 36.57 H* D (4.8-10.8) K/uL Hgb 10.7 L 10.6 L 10.3 L (14.0-18.0) g/dL Hct 30.6 L 29.9 L 29.4 L (42-52) % Plt Count 239 (130-400) K/uL BMP 09/21/20 09/21/20 09/22/20 13:49 18:16 04:03 Sodium 125 L 127 L 125 L Potassium 4.4 4.4 4.3 Chloride 88 L 90 L 90 L Carbon Dioxide 24 25 23 BUN 65 H 67 H 73 H Creatinine 2.56 H D 2.89 H D 2.99 H Glucose 211 H 159 H 191 H Calcium 9.5 9.1 8.9 Liver Function 09/21/20 Range/Units 18:16 Total Bilirubin 1.2 H (0.2-1) mg/dl AST 128 H (15-37) U/L ALT 69 (12-78) U/L Alkaline Phosphatase 84 (45-117) U/L Albumin 3.5 (3.4-5.0) gm/dl Urine 09/21/20 Range/Units 14:30 Urine Color Yellow Urine Appearance Clear (Clear) Urine pH 7.0 (4.5-7.5) Ur Specific Herminie 1.011 (1.000-1.030) Urine Protein Negative (Negative) Urine Glucose (UA) Negative (Negative)
--- NOTE | 2020-09-22 10:48 | Discharge Summary ---
Date of Service September 22, 2020 Admission HPI Per Admitting Provider This is a 75-year-old male who has significant past medical history of CAD, chronic LBBB, history of HFrEF but EF now recovered, HTN, HLD, ELAHM on CPAP, morbid obesity, pulmonary hypertension, bipolar, GERD, RLS, POAG who presents to ED secondary to chest pain times approximately 1 hour. Of significance patient is currently in acute rehab at [facility]. He has been there since 09/12. Records are limited and he has had multiple recent hospitalizations at [facility]. Patient admits to 4 recent hospitalization starting approximately 1 month ago. Initially he was admitted for acute CHF, which he admits a new diagnosis. He was then discharged and readmitted with syncope and JS felt likely secondary to aggressive diuresis. Unfortunately he was readmitted with pneumonia and cellulitis and treated appropriately. He was last admitted 09/07-09/12 at [facility] secondary to acute on chronic CHF. Most recent echocardiogram revealed EF 55 to 60%, severely dilated left atrium, severe LVH, and RV SF globally reduced. He was treated with IV Lasix 60 mg twice daily and discharged on torsemide 20 mg twice daily along with metolazone and Aldactone. Of note he does have a recent history of reduced ejection fraction but his EF has now recovered. He was also discovered to have a bilateral lower extremity cellulitis and treated with IV Rocephin. He was discharged with oral Keflex and is to can be completed for a 7-day course. He was then discharged to [facility] for rehab secondary to general deconditioning and ambulatory dysfunction. He states prior to hospitalizations he was able to walk on own and now has difficulty getting out of bed. He has been at [facility] since 09/12 and was working with therapy today when he developed a blank stare instead, "I am having a heart attack." He described it as, "doing heroin," although he states he is never done this before. He developed left-sided chest pain which was nonradiating and lasted for 3 to 4 minutes. It was associated with diaphoresis, dizziness, lightheadedness and shortness of breath. This lasted for approximately 1 hour. Symptoms gradually resolved. [facility] nursing staff obtained an EKG which revealed a new onset rate controlled atrial fibrillation. He was then referred to ED for further evaluation. Currently he feels improved but debilitated. He currently denies any fever, chills, sweats, lightheadedness, dizziness, chest pain, shortness breath, cough, URI symptoms, nausea, vomiting, abdominal pain. His appetite has been okay and is requesting a meal now. He feels his lower extremities are improving as far as redness and swelling goes. He admits to being 360 pounds when he was initially admitted and now into the 330s. In ED patient made hemodynamically stable, but EKG confirming atrial fibrillation. Lab work notable for BUN 41, creatinine 1.49, troponin 0.060, proBNP 2585, H&H 13.1 and 38.3, to WBC 10.85 Chest x-ray revealed moderate cardiomegaly and also mild central pulmonary va scular congestion without overt edema. He received 325 mg of aspirin. Admission Exam Per Admitting Provider Physical Exam Physical Exam: Constitutional: WD/WN, morbidly obese, vitals as above, NAD, sitting up in bed, pleasant, conversing easily Head: Normocephalic, Atraumatic Eyes: +Anisocoria R>L, conjunctivae normal, anicteric sclerae ENMT: external ear and nose normal, oropharynx normal Neck: trachea midline, no thyromegaly normal visual inspection Respiratory: normal respiratory effort, lungs clear to auscultation, no wheeze, rales, rhonchi. Normal insp/exp effort, no accessory muscle use Cardiovascular: IRR rhythm, reg rate, no murmur, b/l lower ext pitting edema, b/l lower ext cellulitis, cool peripheral lower ext, cap refill > 3 sec, + 2 pedal pulse Vessels: no JVD or carotid bruit Chest: normal inspection of chest Abdomen: distended protuberant abd, normal bowel sounds, soft, nontender, no he patosplenomegaly Musculoskeletal: no cyanosis or clubbing, AROM x 4 Skin: no rashes, warm and dry normal turgor Neurologic: PERRL, EOMI, accommodation nl, no face palsy, no dysarthria CN's II-XI intact bilaterally and moves all extremities Psychiatric: A+Ox3, euthymic affect Lymphatic: no cervical or axillary lymphadenopathy : deferred Principal Diagnosis Extensive retroperitoneal, extraperitoneal hemorrhage Left iliac muscle hematoma New onset atrial fibrillation Acute kidney injury Acute diastolic heart failure Suspected septic shock Suspected amyloidosis Acute Metabolic Encephalopathy Hyponatremia Bilateral lower extremity cellulitis Discharge Data Allergies Allergy/AdvReac Type Severity Reaction Status Date / Time benzalkonium chloride Allergy Unknown Unverified 09/17/20 15:55 brimonidine Allergy Unknown Unverified 09/17/20 15:55 inositol Allergy Unknown Unverified 09/17/20 15:55 niacin Allergy Unknown Unverified 09/17/20 15:55 pollen extracts Allergy Unknown Unverified 09/17/20 15:55 timolol Allergy Unknown Unverified 09/17/20 15:55 travoprost Allergy Unknown Unverified 09/17/20 15:55 Consultations 09/17/20 15:07 ED Decision to Admit Stat 09/17/20 15:32 Consult Cardiology Routine 09/18/20 09:20 Consult Nephrology Routine 09/21/20 17:58 Consult Complex Manager Routine 09/22/20 09:55 Burn CD for patient Stat Ordered Studies 09/17/20 16:03 US venous doppler LE BI Urgent 09/17/20 16:37 US ankle/brachial index comp Routine 09/21/20 12:53 CT abd pelvis wo con Urgent CT head/brain wo con Urgent Hospital Course (1) Atrial fibrillation, new onset: (2) Elevated troponin: (3) Left-sided chest pain: (4) CAD (coronary artery disease): (5) Acute on chronic heart failure with preserved ejection fraction (HFpEF): (6) LBBB (left bundle branch block): (7) JS (acute kidney injury): (8) ELHAM on CPAP: (9) Bilateral lower leg cellulitis: Patient is a 75 yr male with H/O CAD, chronic LBBB, history of HFrEF but EF now recovered, HTN, HLD, ELHAM on CPAP, morbid obesity, pulmonary hypertension, bipo lar, GERD, RLS, POAG who presents to ED secondary to chest pain. Extensive retroperitoneal and extraperitoneal hemorrhage Left iliac muscle hematoma In setting of anticoagulation with IV heparin, Coumadin -CT ABD:Acute moderate to extensive retroperitoneal and extraperitoneal hemorrhage of the abdominal left lower quadrant and left hemipelvis includes a 10 cm hematoma of the left iliacus muscle. Hemorrhage extends into the space of Retzius compressing the adjacent large bowel and urinary bladder. Nonobstructing bilateral nephrolithiasis. No hydronephrosis. No bowel obstruction or bowel wall thickening. -CT Head: No acute intracranial abnormality. -INR 1.1 -IV heparin, Coumadin discontinued Monitor H&H and transfuse PRBCs as needed Appreciate fiber optics technician help NPO for now Given significant medical comorbidities, unavailability of interventional radiology at [facility], possible secondary hematoma infection patient was thought to be better served at a tertiary care facility Madhu Renee fiber optics technician at [facility] kindly accepted the patient Patient will be transferred to [facility] for further management Hypotension Likely multifactorial: Intra-abdominal bleed, renal failure, possible septic shock Currently on pressors Lactic acid normalized Appreciate fiber optics technician help Continue to monitor in ICU Continue broad-spectrum IV antibiotics with Zosyn Blood Cultures pending New onset atrial fibrillation Elevated troponin in setting of Afib, JS H/O CAD, LBBB Normal TSH Continue metoprolol IV heparin discontinued due to abdominal hemorrhage Appreciate cardiology input Continue Coumadin Monitor INR:1.1 today Rate controlled Coumadin held due to bleeding Acute on Chronic HFpEF Held Oral diuretics --ECHO: Severe concentric LVH along with speckling pattern of the myocardium highly suggestive of amyloidosis. EF 50 to 55%. Abnormal septal wall motion consistent with left bundle branch block pattern. Grade 3 diastolic dysfunction consistent with restrictive physiology. Mild mitral regurgitation. Moderate left atrial enlargement. Monitor I's and O's, daily weight Appreciate Cardiology Input Continue low-sodium diet IV lasix held due to JS, hypotension Hold Lisinopril due to hypotension Acute Metabolic Encephalopathy CT head as above Monitor Suspected amyloidosis ECHO as above Immunofixation serum:Normal pattern. No monoclonal proteins detected Urine electrophoresis pending FNA for Fat pad biopsy pending Acute kidney injury Likely multifactorial Celebrex discontinued Hold metaxalone, torsemide, spironolactone Avoid nephrotoxic agents as able Appreciate nephrology input Monitor renal function Cr:1.7>1.6>1.35>2.56>2.99 Hyponatremia Likely multifactorial--volume overload, medications: Methadone, spironolactone Continue fluid restriction Monitor sodium levels Sodium:127>128>125 Bilateral lower extremity cellulitis Was seen and evaluated by infectious disease during recent hospitalization treat ed with IV Rocephin On Keflex>>Changed to Rocephin given worsening leukocytosis Received doxycycline B/L lower ext edema and discoloration concern for PVD/PAD -BONNIE:Bilateral ankle brachial indices within normal limits. -Venous Doppler:No DVT within the right or left lower extremity. Intertrigo place on nystatin/triamcinolone consult wound nurse ELHAM on CPAP CPAP at HS COPD no acute exacerbation continue home inhalers DVT Px: IV Heparin, Coumadin--held due to bleeding Code Status Full Code Disposition [facility] Total Time Total Time Spent Total Time Spent (In Minutes): 50 minutes Discharge Plan Discharge Items Patient Disposition: Transfer Acute Care Hospital Reason For Visit: CHEST PAIN, NEW ONSET AFIB, ELEVATED TROP Discharge Diagnosis: Extensive retroperitoneal, extraperitoneal hemorrhage Left iliac muscle hematoma New onset atrial fibrillation Acute kidney injury Acute diastolic heart failure Suspected septic shock Suspected amyloidosis Acute Metabolic Encephalopathy Hyponatremia Bilateral lower extremity cellulitis Activity: Per Instructions section Non-emergency contact: Primary Care Provider and Specialist Call non-emergency contact if: you have any medication questions, your symptoms worsen, your pain is concerning for you and you have a fever Follow-up/Referrals: PCP,MERLE [Primary Care Provider] - Dietitian Info: NPO Diet: Other - See Diet Comment Addtl Attending Provider Instructions: Follow up with Madhu Renee fiber optics technician at [facility] for further management Pending Studies at Discharge: Yes Studies:: Blood Cultures, Urine electrophoresis, Fat pad biopsy Stand-Alone Forms: My [facility] Skilled Items Patient informed of condition?: Yes DNR: No Discharge Level of Care: Other Communicable Disease: No Discharge Prognosis: Other Lines: Peripheral IV Urinary Catheter: Yes Medications and DC Order Prescriptions: Continued lamotrigine [Lamictal] 150 mg tablet 150 mg PO DAILY RF: 0 atorvastatin [Lipitor] 10 mg Tablet 10 mg PO HS RF: 0 cyanocobalamin (vitamin B-12) 1,000 mcg Tablet 1,000 mcg PO DAILY RF: 0 allopurinol 100 mg tablet 200 mg PO DAILY RF: 0 temazepam 15 mg Capsule 15 mg PO HS PRN (Reason: Insomnia) RF: 0 tamsulosin [Flomax] 0.4 mg capsule 0.4 mg PO DAILY RF: 0 amitriptyline 10 mg tablet 10 mg PO HS RF: 0 ascorbic acid (vitamin C) 250 mg Tablet 500 mg PO DAILY RF: 0 pantoprazole [Protonix] 40 mg Tablet,Delayed Release (Dr/Ec) 40 mg PO BID RF: 0 ropinirole 0.5 mg tablet 0.5 mg PO TID RF: 0 docusate sodium 100 mg Capsule 100 mg PO BID RF: 0 gabapentin [Neurontin] 300 mg capsule 1,500 mg PO HS RF: 0 calcium carbonate 500 mg calcium (1,250 mg) Tablet,Chewable 500 mg PO DAILY RF: 0 metoprolol succinate [Toprol XL] 25 mg tablet extended release 24 hr 25 mg PO HS RF: 0 zinc sulfate 220 mg Capsule 220 mg PO DAILY RF: 0 calcitriol [Rocaltrol] 0.25 mcg capsule 0.25 mcg PO DAILY RF: 0 finasteride [Proscar] 5 mg tablet 5 mg PO DAILY RF: 0 loratadine 10 mg Tablet 10 mg PO DAILY RF: 0 dorzolamide 2 % drops 1 drp OPB TID RF: 0 Multivitamin-Minerals Tablet 1 tab PO DAILY RF: 0 [place]-3 Capsule 1,000 mg PO DAILY RF: 0 lactulose [Enulose] 10 gram/15 mL solution 20 g PO DAILY RF: 0 cholecalciferol (vitamin D3) [Vitamin D3] 25 mcg (1,000 unit) Tablet 25 mcg PO DAILY RF: 0 umeclidinium 62.5 mcg/actuation Blister With Device 1 inh INHALATION DAILY RF: 0 Combivent Respimat 20-100 mcg/actuation mist 1 puff INHALATION QID RF: 0 ipratropium-albuterol 20-100 mcg/actuation Mist 1 puff INHALATION Q4H PRN (Reason: Shortness Of Breath Or Wheezing) RF: 0 Discontinued torsemide 20 mg tablet 20 mg PO BID RF: 0 metolazone 5 mg tablet 5 mg PO DAILY RF: 0 aspirin [Aspirin Low Dose] 81 mg Tablet,Delayed Release (Dr/Ec) 81 mg PO DAILY RF: 0 cephalexin 500 mg capsule 500 mg PO QID RF: 0 lisinopril [Zestril] 5 mg tablet 5 mg PO DAILY RF: 0 celecoxib [Celebrex] 100 mg Capsule 200 mg PO BID RF: 0 spironolactone [Aldactone] 50 mg tablet 50 mg PO BID RF: 0 enoxaparin [Lovenox] 40 mg/0.4 mL Syringe 40 mg SUBCUT DAILY RF: 0 Discharge Orders: Discharge Order (Routine); Ordered 09/22/20 Ordered By: Julio Hsu Admission Data Admit Date/Time: 09/17/20 15:32 Attending Provider: Julio Hsu Admit Provider: João Krause Primary Care Provider: PCP,NO Other Providers: [facility] ; João Krause ; Chi Byrnes ; Alex Cortez ; Vaughn Sellers
[2020-09-22 12:02] LABS: Hemoglobin 9.9 g/dL (14.0-18.0)
--- NOTE | 2020-09-22 13:40 | Cardiology Progress Note ---
Date of Service September 22, 2020 Assessment & Plan (1) Atrial fibrillation, new onset: Plan: Asymptomatic. Ventricular rates well controlled. [id number] (Age, CHF, HTN, PVD). Currently maintained on IV heparin. Anticoagulation has been stopped and may be reversed if necessary (2) Chronic heart failure with preserved ejection fraction (HFpEF): Plan: Nephrology on board given his kidney function. Patient appears mildly hypervolemic on exam, lower extremity edema is improving. SOB improving Lasix held (3) Abnormal echocardiogram: Plan: Echocardiogram suggestive for cardiac amyloidosis - discussed with patient regarding the diagnosis of possible Amyloid, patient is agreeable to further testing. 1. Recommend pathology referral for fat pad biopsy 2. Urine electrophoresis, as well as serum electrophoresis to evaluate for amyloidosis and myeloma- per nephrology, pending results (4) Elevated troponin: Plan: Mildly elevated troponin likely in the setting of new onset atrial fibrillation in combination with JS. (0.054, 0.063). Was elevated to 0.[address] [facility] on admission Can consider outpatient nuclear stress test following discharge. (5) LBBB (left bundle branch block): Plan: Chronic. (6) Bilateral lower leg cellulitis: Plan: Legs Eduardo/purple/cyanotic. Pulses intact. No DVT within the right or left lower extremity. Bilateral ankle brachial indices within normal limits. Will refer to primary hospitalist team for bilateral lower extremity cellulitis and antibiotic management. (7) ELHAM on CPAP: Plan: Encourage CPAP use. (8) Retroperitoneal hemorrhage: Plan: Agree with transfer to tertiary care center for higher level of care Admission and Anticipated Discharge Date Admission Date: September 17, 2020 Subjective Patient seen and examined, chart reviewed as well as the events of last evening. Currently very lethargic and confused. Difficult to arouse. Telemetry reviewed: Atrial fibrillation with underlying left bundle branch block Review of Systems Review of Systems: Unobtainable due to reduced consciousness Physical Exam Physical Exam: General: Awake, alert and oriented x 3. No acute distress. HEENT: Normocephalic, atraumatic. Pupils equal, round and reactive to light and accommodation. Extraocular muscles are intact. Anicteric sclera. Moist mucous membranes. Neck: No JVD. No bruit. Cardiovascular: irregularly irregular, unable to appreciate murmur, rub or gallop. Pulmonary: Poor air movement diffusely, left basilar crackles, otherwise, clear Abdomen: Bowel sounds x 4, soft. No rebound, guarding or tenderness. No organomegaly. Extremities: No clubbing, cyanosis or edema. +2 pedal pulses bilaterally. Skin: Warm and dry. Results & Data ([facility]) Vital Signs (Past 12 Hours) Vital Signs Temp Pulse Pulse Resp BP BP BP 09/22/20 12:09 87 20 108/45 L 09/22/20 11:59 37.0 C 70 20 128/50 L 107/61 09/22/20 11:52 37.0 C 70 20 128/50 L 107/61 09/22/20 11:39 84 20 97/54 L 09/22/20 11:09 71 19 113/55 L 09/22/20 11:06 70 20 09/22/20 10:39 79 19 103/54 L 09/22/20 10:09 87 19 97/51 L 09/22/20 09:35 88 21 72/40 L 09/22/20 09:05 86 19 106/57 L 09/22/20 08:35 91 H 29 H 87/65 L 09/22/20 08:05 79 18 112/59 L 09/22/20 08:00 88 09/22/20 07:42 87 16 09/22/20 07:35 89 19 118/65 09/22/20 07:05 91 H 20 107/61 09/22/20 07:00 37.0 C 89 22 128/50 L 107/61 09/22/20 06:35 84 16 128/53 L 09/22/20 06:05 83 13 104/69 09/22/20 05:35 87 21 111/60 09/22/20 05:05 85 18 109/50 L 09/22/20 04:36 86 20 09/22/20 04:18 37.4 C 09/22/20 04:07 83 18 112/62 09/22/20 03:35 85 20 111/61 09/22/20 03:05 84 26 H 98/56 L 09/22/20 02:35 88 20 116/55 L 09/22/20 02:06 88 22 101/57 L Pulse Ox 09/22/20 12:09 94 09/22/20 11:59 96 09/22/20 11:52 96 09/22/20 11:39 94 09/22/20 11:09 96 09/22/20 11:06 96 09/22/20 10:39 96 09/22/20 10:09 92 09/22/20 09:35 95 09/22/20 09:05 93 09/22/20 08:35 92 09/22/20 08:05 96 09/22/20 08:00 09/22/20 07:42 95 09/22/20 07:35 96 09/22/20 07:05 96 09/22/20 07:00 96 09/22/20 06:35 95 09/22/20 06:05 95 09/22/20 05:35 94 09/22/20 05:05 95 09/22/20 04:36 96 09/22/20 04:18 09/22/20 04:07 96 09/22/20 03:35 96 09/22/20 03:05 96 09/22/20 02:35 95 09/22/20 02:06 97
[2020-09-23 09:26] LABS: Creatinine Ur 42 mg/dL (20-320); Protein, Urine Random 4 mg/dL (5-25); Ur Protein/Creat Ratio mg/g 95 mg/g creat (22-128); Urine Abnormal Protein Band 1 DNR mg/dL (NONE DETECTED); Urine Abnormal Protein Band 2 DNR mg/dL (NONE DETECTED); Urine Abnormal Protein Band 3 DNR mg/dL (NONE DETECTED); Urine Protein/Creatinine Ratio 0.095 (0.022-0.128)
== END 2020-09-22 12:40 | disposition short-term general hospital (02) | DRG 987 ==
LOC: ED 12:14 → 2S 15:32 → SUATTDRO 15:32 → 2S 17:57 → 1E 09-21 16:41